=== PATIENT | female | born 1940 | race Caucasian/White ===

== ENCOUNTER 2019-06-27 21:17 | Inpatient (IN) | payer MEDICARE, OTHER ==
--- NOTE | 2019-06-28 00:20 | ED ---
Dizziness - HPI Summary HPI Summary: Pt is an 79 y/o F presenting to the ED with a chief complaint of anemia. Dr. Arevalo told her that she is anemic and recommended coming in today. She gets blood transfusions, and her last one was about 10 days ago. She reports weakness and fatigue. She denies CP, SOB, dizziness, lightheadedness, fever, cough, N/V/D, or dysuria. - History Of Current Complaint Chief Complaint: EDGeneral Stated Complaint: LOW BP, DEHYDRATED PER Time Seen by Provider: 06/27/19 23:52 Hx Obtained From: Patient Onset/Duration: Still Present, Gradually Timing: Days Severity Initially: Moderate Severity Currently: Severe Character: Lightheaded, Weak Aggravating Factor(s): Nothing Alleviating Factor(s): Nothing Associated Signs And Symptoms: Negative: Nausea, Vomiting, Diarrhea, Chest Pain , SOB, Fever, Chills - Allergies/Home Medications Allergies/Adverse Reactions: Allergies Allergy/AdvReac Type Severity Reaction Status Date / Time Sulfa (Sulfonamide Allergy Anxiety Verified 06/27/19 21:22 Antibiotics) enviromental Allergy Runny Nose Uncoded 06/27/19 21:22 milk Allergy Shortness Uncoded 06/27/19 21:22 of Breath PMH/Surg Hx/FS Hx/Imm Hx Previously Healthy: Yes Endocrine/Hematology History: Reports: Hx Diabetes - CONTROLLED W/MEDS Cardiovascular History: Reports: Hx Hypertension Denies: Hx Congestive Heart Failure Respiratory History: Reports: Hx Asthma, Hx Chronic Bronchitis History: Denies: Hx Renal Disease Sensory History: Reports: Hx Contacts or Glasses Opthamlomology History: Reports: Hx Contacts or Glasses - Cancer History Hx Chemotherapy: No Hx Radiation Therapy: No - Surgical History Surgery Procedure, Year, and Place: hysterectomy,tosilectomy Infectious Disease History: No Infectious Disease History: Denies: Traveled Outside the [place] in Last 30 Days - Family History Known Family History: Negative: Diabetes - Social History Alcohol Use: None Hx Substance Use: No Substance Use Type: Reports: None Hx Tobacco Use: No Smoking Status (MU): Never Smoked Tobacco Review of Systems - ROS Summary Review of Systems Summary: Home Medications Medication Instructions Recorded Confirmed Type Atenolol TAB* [Tenormin TAB* 25 MG] 25 mg PO DAILY 11/22/14 02/13/19 History Levothyroxine TAB* [Synthroid 25 75 mcg PO DAILY 11/22/14 02/13/19 History MCG TAB*] Ascorbic Acid TAB* [Vitamin C 500 mg PO DAILY 12/14/18 02/13/19 History TAB*] Calcium Carbonate [Calcium] 500 mg PO DAILY 12/14/18 02/13/19 History Clopidogrel TAB* [Plavix TAB*] 75 mg PO DAILY 12/14/18 02/13/19 History Fluticasone-Salmeterol 250-50* 1 puff INH BID 12/14/18 01/22/19 History [Advair Diskus 250-50*] Vitamin B Complex CAP* [B Complex 1 cap PO DAILY 12/14/18 02/13/19 History CAP*] Darbepoetin Jesse in Polysorbat 200 mcg IJ WEEKLY 02/13/19 02/13/19 History [Aranesp Albumin Free] Glucosamine HCl/Chondroitin Peguero 02/13/19 History Jakifi 10 mg PO DAILY 02/13/19 History Positive: Fatigue. Negative: Fever, Chills Negative: Chest Pain Negative: Shortness Of Breath, Cough Negative: Vomiting, Diarrhea, Nausea Negative: dysuria Neurological: Negative - dizziness, lightheadedness Positive: Weakness All Other Systems Reviewed And Are Negative: Yes Physical Exam - Summary Physical Exam Summary: General: Pale, elderly female. No acute distress. HEENT: Normocephalic, Atraumatic. Eyes: Conjuctiva normal, PERRL. Oropharynx: Clear, mucous membranes moist, (-) exudates. Neck: Soft, FROM, (-) lymphadenopathy, (-) thyromegaly, (-) JVD. Cardiovascular: Normal sinus rhythm, (-) murmur. Lungs: Clear to auscultation bilaterally (-) wheezes, (-) rales, (-) rhonchi. Abdomen: Soft, non-tender, non-distended, (-) organomegaly, normal bowel sounds. Back: (-) CVA tenderness Extremities: No edema. Skin: Warm, dry, (-) rash. Neuro: Alert and oriented x3, no focal deficits. Psychiatric: Mood normal, affect normal. Triage Information Reviewed: Yes Vital Signs On Initial Exam: Initial Vitals Temp Pulse Resp BP Pulse Ox 97.8 F 78 16 111/57 96 06/27/19 21:19 06/27/19 21:19 06/27/19 21:19 06/27/19 21:19 06/27/19 21:19 Vital Signs Reviewed: Yes Procedures - Sedation Patient Received Moderate/Deep Sedation with Procedure: No Diagnostics - Vital Signs Vital Signs Temp Pulse Resp BP Pulse Ox 06/27/19 23:27 97.9 F 06/27/19 23:26 67 96 06/27/19 23:25 109/49 06/27/19 21:19 97.8 F 78 16 111/57 96 - Laboratory Result Diagrams: 06/28/19 00:00 06/28/19 00:00 Lab Statement: Any lab studies that have been ordered have been reviewed, and results considered in the medical decision making process. - Radiology CXR Radiology Interpretation Completed By: ED Physician Summary of Radiographic Findings: No acute process. Pending official radiology report. - EKG 2357 Cardiac Rate: NL - 65 EKG Rhythm: Sinus Rhythm ST Segment: Normal Ectopy: None Summary of EKG Findings: EKG at 2357 reveals normal sinus rhythm with rate of 65 BPM, no acute changes, no ischemic changes. This EKG was reviewed and interpreted by Dr. Carlton. Dizzy Course/Dx - Course Course Of Treatment: 79 y/o F presenting to ED for anemia characterized by fatigue and weakness. She normally gets blood transfusions, most recent one about 10 days ago, before that it was about 2-3wks ago. She denies CP, SOB, dizziness, lightheadedness, fever, cough, N/V/D, or dysuria. EKG at 2357 reveals normal sinus rhythm with rate of 65 BPM, no acute changes, no ischemic changes. This EKG was reviewed and interpreted by Dr. Carlton. Bone marrow biopsy shows prominent gastric epharases, chronic splenic vein thrombosis, splenomegaly, 2 pancreatic cysts, and myelodysplasia. Hgb 6.8. 2 units blood will be transfused. Pt will be signed out to Dr. Gayle pending completion of transfusion. - Diagnoses Provider Diagnoses: Anemia Discharge ED - Sign-Out/Discharge Documenting (check all that apply): Sign-Out Patient Signing out patient TO: Lincoln Gayle - Discharge Plan Referrals: Lloyd Booth MD [Primary Care Provider] - - Attestation Statements Document Initiated by Scribe: Yes Documenting Scribe: Shikha Aldana Provider For Whom Jeff is Documenting (Include Credential): Taryn Carlton MD. Scribe Attestation: IShikha, scribed for Taryn Carlton MD. on 06/28/19 at 0641. Scribe Documentation Reviewed: Yes Provider Attestation: The documentation as recorded by the scribe, Shikha Aldana accurately reflects the service I personally performed and the decisions made by me, Taryn Carlton MD. Status of Scribe Document: Viewed
[2019-06-28 00:29] LABS: Hematocrit 20 % (35-47); Hemoglobin 6.8 g/dL (12.0-16.0); INR 1.48 (0.82-1.09); Mean Corpuscular HGB Conc 35 g/dL (31-36); Mean Corpuscular Hemoglobin 31 pg (27-31); Mean Corpuscular Volume 88 fL (80-97); Red Blood Count 2.23 10^6 /uL (3.70-4.87); Red Cell Distribution Width 19 % (10-15); White Blood Count 6.2 10^3/uL (3.5-10.8)
[2019-06-28 00:38] LABS: Albumin 3.7 g/dL (3.2-5.2); Albumin/Globulin Ratio 1.9 (1-3); BUN/Creatinine Ratio 18.7 (8-20); Calcium 8.2 mg/dL (8.6-10.3); EGFR African American 35.9 (>60); EGFR Non-African American 29.6 (>60); Potassium 4.6 mmol/L (3.5-5.0); Total Bilirubin 1.9 mg/dL (0.2-1.0); Total Protein 5.7 g/dL (6.4-8.9)
[2019-06-28 00:39] LABS: Troponin I 0.02 ng/mL (<0.03)
[2019-06-28 01:05] LABS: TSH (Thyroid Stimulating Horm) 0.29 mcIU/mL (0.34-5.60)
[2019-06-28 01:33] LABS: ABS Basophils 0.1 10^3/ul (0-0.2); ABS Lymphocytes 0.8 10^3/ul (1.0-4.8); ABS Monocytes 0.4 10^3/ul (0-0.8); ABS Neutrophils 4.9 10^3/ul (1.5-7.7); ABS Nucleated RBC 0.1 10^3/ul; Eosinophil % 0.1 %; Lymphocyte % 12.6 %; Mean Platelet Volume 8.1 fL (7.4-10.4); Nucleated Red Blood Cells % 2.2; Platelet Count 24 10^3/uL (150-450)
--- NOTE | 2019-06-28 07:07 | ED ---
Progress - Progress Note Progress Note: This patient is an 79 y/o F who presents to [facility] with chief complaint of anemia. This patient is a sign-out from Dr. Taryn Carlton to Dr. Lincoln Gayle at 0700 on 06/28/19 at shift change pending transfusion completion. Re-Evaluation - Re-Evaluation First Eval Re-Evaluation Time: 08:51 Change: Improved Comment: After transfusion, patient reports feeling much better. She does not feel as tired and weak. Patient states her "spleen is eating up the blood cells, " but her doctors do not know what is going on. Patient is not completely pale, she has symptomatically improved, and her heart rate and blood pressure are normal. I will page her java project manager/oncologist. Course/Dx - Course Course Of Treatment: This patient is an 79 y/o F who presents to [facility] with chief complaint of anemia and fatigue. This patient is a sign-out from Dr. Taryn Carlton to Dr. Lincoln Gayle at 0700 on 06/28/19 at shift change pending transfusion completion. After patient finished transfusion, I evaluated the patient and noted that while she was feeling better, she was not completely perfused. I discussed patient case with Dr. Arevalo, oncologist, who will come see the patient in the ED. At 1215, discussed patient case wt Dr. Arevalo, oncologist , who accepted the patient for admission to [facility]. Patient will be admitted to [facility] with dx of anemia. Patient understands and agrees with this plan. - Diagnoses Provider Diagnoses: Anemia - Provider Notifications Discussed Care Of Patient With: Ozzie Arevalo Time Discussed With Above Provider: 09:21 Instructed by Provider To: MD Will See In ED - Discussed patient case with Dr. Arevalo, oncologist, who will come see the patient in the ED. At 1215, discussed patient case wt Dr. Arevalo, oncologist, who accepted the patient for admission to [facility]. Discharge ED - Sign-Out/Discharge Documenting (check all that apply): Patient Departure - Admit, Receiving Sign- Out Receiving patient FROM: Taryn Carlton - Discharge Plan Condition: Stable Disposition: HOME - Billing Disposition and Condition Condition: STABLE Disposition: Home - Attestation Statements Document Initiated by Scribe: Yes Documenting Scribe: Jesus Becker Provider For Whom Scribe is Documenting (Include Credential): Lincoln Gayle MD Scribe Attestation: I, Jesus Becker, scribed for Lincoln Gayle MD on 06/28/19 at 1854. Scribe Documentation Reviewed: Yes Provider Attestation: The documentation as recorded by the scribe, Jesus Becker accurately reflects the service I personally performed and the decisions made by me, Lincoln Gayle MD Status of Scribe Document: Viewed Procedures - Sedation Patient Received Moderate/Deep Sedation with Procedure: No
[2019-06-28 07:36] LABS: Urine Appearance Clear; Urine Bilirubin Negative (Negative); Urine Blood Negative (Negative); Urine Color Yellow; Urine Glucose Negative (Negative); Urine Ketones Negative (Negative); Urine Nitrite Negative (Negative); Urine Protein Negative (Negative); Urine Specific Gravity 1.015 (1.010-1.030); Urine Urobilinogen Negative (Negative)
[2019-06-28 07:45] LABS: Urine Bacteria Absent (Absent); Urine Red Blood Cell Absent (Absent); Urine Squamous Epithelial Cell Present (Absent); Urine White Blood Cell 3+(>20/hpf) (Absent)
[2019-06-28] MEDS ORDERED: oxyCODONE/Acetamin 5/325 MG* TAB PO PRN (11:52)
[2019-06-28] MEDS ORDERED: Acetaminophen TAB* 325 MG PO PRN (11:52)
[2019-06-28] MEDS ORDERED: Ondansetron INJ* 2 MG/ML VIAL IV PRN (11:52)
[2019-06-28 12:20] LABS: Hematocrit 26 % (35-47); Hemoglobin 9.2 g/dL (12.0-16.0); Mean Corpuscular HGB Conc 35 g/dL (31-36); Mean Corpuscular Hemoglobin 30 pg (27-31); Mean Corpuscular Volume 86 fL (80-97); Red Blood Count 3.03 10^6 /uL (3.70-4.87); White Blood Count 5.2 10^3/uL (3.5-10.8)
[2019-06-28 12:41] LABS: Mean Platelet Volume 8.3 fL (7.4-10.4); Platelet Count 19 10^3/uL (150-450); Red Cell Distribution Width 17 % (10-15)
[2019-06-28 12:46] LABS: ABS Lymphocytes 0.7 10^3/ul (1.0-4.8); ABS Monocytes 0.2 10^3/ul (0-0.8); ABS Neutrophils 4.3 10^3/ul (1.5-7.7); ABS Nucleated RBC 0.2 10^3/ul; Lymphocyte % 13.3 %
[2019-06-28 12:51] LABS: Microcytosis 2+; Polychromasia 1+
--- NOTE | 2019-06-28 13:09 | HP ---
HISTORY AND PHYSICAL: DATE OF ADMISSION: 06/28/19 IDENTIFICATION: An 79-year-old female with mixed myeloproliferative/ myelodysplastic disease, cirrhosis, splenomegaly. CHIEF COMPLAINT: Weakness. HISTORY OF PRESENT ILLNESS: An 79-year-old female well known to our service. She is followed since 2014 with persistent anemia. 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 She was treated with hydroxyurea starting January 2017. She developed persistent and progressive anemia in September 2018 and hydroxyurea was stopped. Anemia persisted despite stopping the medication. Initial study showed low iron, treated with IV iron without success. 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 CT scan showed marked splenomegaly. Bone marrow biopsy in December 2018 showed 5% cellularity, no increased blasts, reticulocytes are negative, PNH screen was negative. She had an FNA of her spleen and it showed extramedullary hematopoiesis, no evidence of malignancy. She was ultimately restarted on Jakafi 5 mg p.o. b.i.d., which helped with the splenomegaly, but did not improve her blood counts. She has had trial of Aranesp 500 mg q.2 weeks without effect and has been subsequently managed with packed red blood cells. She has had progressive anemia despite transfusions. She was transfused on 05/16/19 two units, then did well with hemoglobin around 7 to 8 until 06/19/19. On 06/19/19, she had a hemoglobin of 7.1 and given 2 units and recheck on 06/21/19 was 8.8. Given her need for additional transfusions, we tried holding the Jakafi. She re-presented today with hemoglobin back down to 6.8. She feels increasingly weak, could not stand up, could not move without her son's support. She is not eating well and she feels dehydrated. Her platelets were down to 24,000 today. She presented to the emergency room, given 1 unit of packed red blood cells, and felt a little bit better, but still very weak. Additional blood work includes creatinine 1.66; up from baseline of 1.1 and sodium down to 133 from baseline of 139, normal calcium, slightly elevated bilirubin of 1.9. She has a TSH that is low at 0.29 and her INR is 1.48, slightly above her baseline. PAST MEDICAL HISTORY: 1. Myelodysplasia/myeloproliferative disease as noted above. 2. Asthma. 3. Hypertension. 4. Hypothyroidism. 5. Peripheral vascular disease. 6. Cirrhosis with splenomegaly. PAST SURGICAL HISTORY: Fem-pop bypass in December 2014. MEDICATIONS AT HOME: 1. Advair Diskus as well as albuterol p.r.n. 2. B12 at 500 mcg p.o. daily. 3. Calcium 1200 mg a day. 4. Plavix 75 mcg a day. 5. Glucosamine chondroitin. 6. Jakafi has been on hold, was 5 mg p.o. b.i.d. 7. Magnesium. 8. Omeprazole 40 mg p.o. daily. 9. Prednisone 40 mg a day. 10. Synthroid 75 mcg a day. 11. Valsartan 40 mg a day. 12. Vitamin C. ALLERGIES: SULFA. FAMILY HISTORY: No significant history of malignancy. SOCIAL HISTORY: No alcohol. She has good family support. Does not smoke. REVIEW OF SYSTEMS: Fatigued and weak. General: No fevers, chills, or night sweats. HEENT: Negative. Eyes: Negative. Endocrine: Hypothyroid, on Synthroid. Hematologic: She has some bruising. No recent nosebleeds or bleeding from the gums. Respiratory: Short of breath with exertion. Cardiovascular: No chest pain or palpitations. Short of breath when she is active. GI: Poor appetite. : Negative. Musculoskeletal: Weak, only transfusions help. Skin: Bruising. Neurologic: Negative. Psychiatric: Not depressed. PHYSICAL EXAMINATION VITAL SIGNS: BP 129/60, heart rate 66, respirations 24. HEENT: No lesions. No cervical or supraclavicular lymphadenopathy. Conjunctivae pale. Oral mucosa is dry. LUNGS: Decreased breath sounds, but clear bilaterally, no wheezing at this time. HEART: Regular rhythm. S1, S2. No murmurs, rubs, or gallops. ABDOMEN: Mildly distended. Palpable spleen. Good bowel sounds. Nontender. EXTREMITIES: +1 edema. Good pulses. NEUROLOGIC: Alert and oriented x3, conversational. DIAGNOSTIC STUDIES/LAB DATA: Labs: As noted above. ASSESSMENT AND PLAN: An 79-year-old female with mixed myeloproliferative/ myelodysplastic disease who has been treated with transfusion support. Increasing difficulty with transfusions and deteriorating quality of life. Her pancytopenia is from poor marrow function, but the transfusions are compromised by splenic pooling. I do not think she is actively bleeding. We discussed that there are very few options for her. If she cannot be transfused effectively, we cannot keep her alive. I am worried about that her quality of life will continue to deteriorate. We discussed hospice; her prognosis would be about 2 months without support. She feels she is not ready to yet. There are no options for aggressive therapy; surgery to remove the spleen would not be dias. The only treatment option I see is increasing the Jakafi to try and further decrease the spleen size and then improve her susceptibility to transfusions. There will be a risk of further thrombocytopenias with this approach. Plan: 1. We will admit. Recheck CBC and transfuse again till we get to hemoglobin over 8.0. 2. Acute renal failure. Gentle hydration, normal saline at 75 cc an hour and encourage p.o. 3. Recheck noncontrast CT scan of abdomen and pelvis to see if she has had further enlargement of the spleen. 4. She will bring in her own Jakafi and we increase to 10 mg p.o. b.i.d. 5. DNR/DNI. 6. Palliative care consult. 7. Continue her other medications. We will continue prednisone 40 mg a day to prevent steroid withdrawal. [id number]/[facility] #: [id number] [facility]ENTERMicaela
[2019-06-28] MEDS: Mometasone/Formoter 200/5 MDI INH SCH (20:22)
--- NOTE | 2019-06-28 21:35 | CONSULT ---
Palliative / Hospice Consult Ordering Provider: Ozzie Arevalo - PCPHaseeb Referal Reason: goals of care/senna/oxycodone - Subjective Code Status: DNR Advance Directives Location: In Chart [facility]OL[facility] Part A Completed: Yes - completed with family and on chart [facility] Part E Completed:: Yes - completed with family and on chart - History or Present Illness History or Present Illness: 79yo female with mixed myeloproliferative /myleodysplasic disease presents with weakness. 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 PSHx non smoker, no etoh, no drugs, remarried to Arnoldo Childsfe [phone]. Studies CXR neg, EKG-NSR, H/H 9.2/26, WBC 5.2, plt 19, BUN/ Cr 31/1.66, egfr 29.6, alb 3.7 and INR 1.487. Admitted with pancytopenia, anemia and acute renal failure. All history is from pt, family and medical record. Lab Values: Abnormal Lab Results 06/28/19 06/28/19 06/28/19 00:00 00:00 00:00 WBC 6.2 RBC 2.23 L Hgb 6.8 L Hct 20 L MCV 88 MCH 31 MCHC 35 RDW 19 H Plt Count 24 L MPV 8.1 Neut % (Auto) 78.9 Lymph % (Auto) 12.6 Brantley % (Auto) 7.1 Eos % (Auto) 0.1 Baso % (Auto) 1.3 Absolute Neuts (auto) 4.9 Absolute Lymphs (auto) 0.8 L Absolute Monos (auto) 0.4 Absolute Eos (auto) 0.0 Absolute Basos (auto) 0.1 Absolute Nucleated RBC 0.1 Immature Gran % Neutrophils % Band Neutrophils % Lymphocytes % Reactive Lymphs % Monocytes % Eosinophils % Myelocytes % Nucleated RBC % 2.2 Nucleated RBCs/100 WBC Normal RBC Morphology Polychromasia Microcytosis INR (Anticoag Therapy) Sodium 133 L Potassium 4.6 Chloride 100 L Carbon Dioxide 27 Anion Gap 6 BUN 31 H Creatinine 1.66 H Est GFR ( Amer) 35.9 Est GFR (Non-Af Amer) 29.6 BUN/Creatinine Ratio 18.7 Glucose 104 H Lactic Acid 0.5 Calcium 8.2 L Magnesium 2.0 Total Bilirubin 1.90 H AST 14 ALT 13 Alkaline Phosphatase 50 Troponin I 0.02 B-Natriuretic Peptide Total Protein 5.7 L Albumin 3.7 Globulin 2.0 Albumin/Globulin Ratio 1.9 TSH 0.29 L Urine Color Urine Appearance Urine pH Ur Specific Sciota Urine Protein Urine Ketones Urine Blood Urine Nitrate Urine Bilirubin Urine Urobilinogen Ur Leukocyte Esterase Urine WBC (Auto) Urine RBC (Auto) Ur Squamous Epith Cells Urine Bacteria Hyaline Casts Urine Glucose Blood Type Antibody Screen Crossmatch 06/28/19 06/28/19 06/28/19 00:00 00:00 00:00 WBC RBC Hgb Hct MCV MCH MCHC RDW Plt Count MPV Neut % (Auto) Lymph % (Auto) Brantley % (Auto) Eos % (Auto) Baso % (Auto) Absolute Neuts (auto) Absolute Lymphs (auto) Absolute Monos (auto) Absolute Eos (auto) Absolute Basos (auto) Absolute Nucleated RBC Immature Gran % Neutrophils % Band Neutrophils % Lymphocytes % Reactive Lymphs % Monocytes % Eosinophils % Myelocytes % Nucleated RBC % Nucleated RBCs/100 WBC Normal RBC Morphology Polychromasia Microcytosis INR (Anticoag Therapy) 1.48 H Sodium Potassium Chloride Carbon Dioxide Anion Gap BUN Creatinine Est GFR ( Amer) Est GFR (Non-Af Amer) BUN/Creatinine Ratio Glucose Lactic Acid Calcium Magnesium Total Bilirubin AST ALT Alkaline Phosphatase Troponin I B-Natriuretic Peptide 118 H Total Protein Albumin Globulin Albumin/Globulin Ratio TSH Urine Color Urine Appearance Urine pH Ur Specific Sc[place] Urine Protein Urine Ketones Urine Blood Urine Nitrate Urine Bilirubin Urine Urobilinogen Ur Leukocyte Esterase Urine WBC (Auto) Urine RBC (Auto) Ur Squamous Epith Cells Urine Bacteria Hyaline Casts Urine Glucose Blood Type O Positive Antibody Screen Negative Crossmatch See Detail 06/28/19 06/28/19 07:20 12:03 WBC 5.2 RBC 3.03 L Hgb 9.2 L Hct 26 L MCV 86 MCH 30 MCHC 35 RDW 17 H Plt Count 19 L D MPV 8.3 Neut % (Auto) 82.6 Lymph % (Auto) 13.3 Brantley % (Auto) 3.3 Eos % (Auto) 0.0 Baso % (Auto) 0.8 Absolute Neuts (auto) 4.3 Absolute Lymphs (auto) 0.7 L Absolute Monos (auto) 0.2 Absolute Eos (auto) 0.0 Absolute Basos (auto) 0.0 Absolute Nucleated RBC 0.2 Immature Gran % 9.0 Neutrophils % 81.0 Band Neutrophils % 7.0 Lymphocytes % 5.0 Reactive Lymphs % 3.0 Monocytes % 1.0 Eosinophils % 1.0 Myelocytes % 2.0 H Nucleated RBC % 3.0 Nucleated RBCs/100 WBC 10.0 H Normal RBC Morphology Not Reportable Polychromasia 1+ Microcytosis 2+ INR (Anticoag Therapy) Sodium Potassium Chloride Carbon Dioxide Anion Gap BUN Creatinine Est GFR ( Amer) Est GFR (Non-Af Amer) BUN/Creatinine Ratio Glucose Lactic Acid Calcium Magnesium Total Bilirubin AST ALT Alkaline Phosphatase Troponin I B-Natriuretic Peptide Total Protein Albumin Globulin Albumin/Globulin Ratio TSH Urine Color Yellow Urine Appearance Clear Urine pH 6.0 Ur Specific Sciota 1.015 Urine Protein Negative Urine Ketones Negative Urine Blood Negative Urine Nitrate Negative Urine Bilirubin Negative Urine Urobilinogen Negative Ur Leukocyte Esterase 1+ A Urine WBC (Auto) 3+(>20/hpf) A Urine RBC (Auto) Absent Ur Squamous Epith Cells Present A Urine Bacteria Absent Hyaline Casts Present A Urine Glucose Negative Blood Type Antibody Screen Crossmatch Laboratory Last Values WBC 5.2 10^3/uL (3.5-10.8) 06/28/19 12:03 RBC 3.03 10^6 /uL (3.70-4.87) L 06/28/19 12:03 Hgb 9.2 g/dL (12.0-16.0) L 06/28/19 12:03 Hct 26 % (35-47) L 06/28/19 12:03 MCV 86 fL (80-97) 06/28/19 12:03 MCH 30 pg (27-31) 06/28/19 12:03 MCHC 35 g/dL (31-36) 06/28/19 12:03 RDW 17 % (10-15) H 06/28/19 12:03 Plt Count 19 10^3/uL (150-450) L D 06/28/19 12:03 MPV 8.3 fL (7.4-10.4) 06/28/19 12:03 Neut % (Auto) 82.6 % 06/28/19 12:03 Lymph % (Auto) 13.3 % 06/28/19 12:03 Brantley % (Auto) 3.3 % 06/28/19 12:03 Eos % (Auto) 0.0 % 06/28/19 12:03 Baso % (Auto) 0.8 % 06/28/19 12:03 Absolute Neuts (auto) 4.3 10^3/ul (1.5-7.7) 06/28/19 12:03 Absolute Lymphs (auto) 0.7 10^3/ul (1.0-4.8) L 06/28/19 12:03 Absolute Monos (auto) 0.2 10^3/ul (0-0.8) 06/28/19 12:03 Absolute Eos (auto) 0.0 10^3/ul (0-0.6) 06/28/19 12:03 Absolute Basos (auto) 0.0 10^3/ul (0-0.2) 06/28/19 12:03 Absolute Nucleated RBC 0.2 10^3/ul 06/28/19 12:03 Immature Gran % 9.0 % (0-9) 06/28/19 12:03 Neutrophils % 81.0 % 06/28/19 12:03 Band Neutrophils % 7.0 % (0-8) 06/28/19 12:03 Lymphocytes % 5.0 % 06/28/19 12:03 Reactive Lymphs % 3.0 % (0-6) 06/28/19 12:03 Monocytes % 1.0 % 06/28/19 12:03 Eosinophils % 1.0 % 06/28/19 12:03 Myelocytes % 2.0 % (0-1) H 06/28/19 12:03 Nucleated RBC % 3.0 06/28/19 12:03 Nucleated RBCs/100 WBC 10.0 (0-0) H 06/28/19 12:03 Normal RBC Morphology Not Reportable 06/28/19 12:03 Polychromasia 1+ 06/28/19 12:03 Microcytosis 2+ 06/28/19 12:03 INR (Anticoag Therapy) 1.48 (0.82-1.09) H 06/28/19 00:00 Sodium 133 mmol/L (135-145) L 06/28/19 00:00 Potassium 4.6 mmol/L (3.5-5.0) 06/28/19 00:00 Chloride 100 mmol/L (101-111) L 06/28/19 00:00 Carbon Dioxide 27 mmol/L (22-32) 06/28/19 00:00 Anion Gap 6 mmol/L (2-11) 06/28/19 00:00 BUN 31 mg/dL (6-24) H 06/28/19 00:00 Creatinine 1.66 mg/dL (0.51-0.95) H 06/28/19 00:00 Est GFR ( Amer) 35.9 (>60) 06/28/19 00:00 Est GFR (Non-Af Amer) 29.6 (>60) 06/28/19 00:00 BUN/Creatinine Ratio 18.7 (8-20) 06/28/19 00:00 Glucose 104 mg/dL (70-100) H 06/28/19 00:00 Lactic Acid 0.5 mmol/L (0.5-2.0) 06/28/19 00:00 Calcium 8.2 mg/dL (8.6-10.3) L 06/28/19 00:00 Magnesium 2.0 mg/dL (1.9-2.7) 06/28/19 00:00 Total Bilirubin 1.90 mg/dL (0.2-1.0) H 06/28/19 00:00 AST 14 U/L (13-39) 06/28/19 00:00 ALT 13 U/L (7-52) 06/28/19 00:00 Alkaline Phosphatase 50 U/L (34-104) 06/28/19 00:00 Troponin I 0.02 ng/mL (<0.03) 06/28/19 00:00 B-Natriuretic Peptide 118 pg/mL (<=100) H 06/28/19 00:00 Total Protein 5.7 g/dL (6.4-8.9) L 06/28/19 00:00 Albumin 3.7 g/dL (3.2-5.2) 06/28/19 00:00 Globulin 2.0 g/dL (2-4) 06/28/19 00:00 Albumin/Globulin Ratio 1.9 (1-3) 06/28/19 00:00 TSH 0.29 mcIU/mL (0.34-5.60) L 06/28/19 00:00 Urine Color Yellow 06/28/19 07:20 Urine Appearance Clear 06/28/19 07:20 Urine pH 6.0 (5-9) 06/28/19 07:20 Ur Specific Sciota 1.015 (1.010-1.030) 06/28/19 07:20 Urine Protein Negative (Negative) 06/28/19 07:20 Urine Ketones Negative (Negative) 06/28/19 07:20 Urine Blood Negative (Negative) 06/28/19 07:20 Urine Nitrate Negative (Negative) 06/28/19 07:20 Urine Bilirubin Negative (Negative) 06/28/19 07:20 Urine Urobilinogen Negative (Negative) 06/28/19 07:20 Ur Leukocyte Esterase 1+ (Negative) A 06/28/19 07:20 Urine WBC (Auto) 3+(>20/hpf) (Absent) A 06/28/19 07:20 Urine RBC (Auto) Absent (Absent) 06/28/19 07:20 Ur Squamous Epith Cells Present (Absent) A 06/28/19 07:20 Urine Bacteria Absent (Absent) 06/28/19 07:20 Hyaline Casts Present (Absent) A 06/28/19 07:20 Urine Glucose Negative (Negative) 06/28/19 07:20 Blood Type O Positive 06/28/19 00:00 Antibody Screen Negative 06/28/19 00:00 Crossmatch See Detail 06/28/19 00:00 - Objective Active Medications: Acetaminophen (Tylenol Tab*) 650 mg PO Q4H PRN PRN Reason: PAIN - MILD Ascorbic Acid (Vitamin C Tab*) 500 mg PO DAILY [facility] Atenolol (Tenormin Tab*) 25 mg PO DAILY [facility] Calcium Carbonate (Tums*) 500 mg PO DAILY [facility] Sodium Chloride (Ns 0.9% 1000 Ml) 1,000 mls @ 100 mls/hr IV PER RATE [facility] Levothyroxine Sodium (Synthroid Tab*) 50 mcg PO DAILY@0600 [facility] Mometasone Furoate/Formoterol Fumar (Dulera 200/5 Mdi*) 2 puff INH BID [facility] Last Admin: 06/28/19 20:22 Dose: 2 puff Ondansetron HCl (Zofran Inj*) 4 mg IV Q4H PRN PRN Reason: NAUSEA/VOMITING Oxycodone/Acetaminophen (Percocet 5/325 Tab*) 1 tab PO Q4H PRN PRN Reason: PAIN - MODERATE Prednisone (Deltasone Tab*) 40 mg PO DAILY [facility] Senna (Senokot 8.6 Mg Tab*) 1 tab PO BID [facility] Zolpidem Tartrate (Ambien Tab*) 10 mg PO BEDTIME [facility] Vital Signs: Vital Signs: Temp Pulse Resp BP Pulse Ox 99.6 F 80 16 138/59 94 06/28/19 15:52 06/28/19 20:29 06/28/19 15:52 06/28/19 15:52 06/28/19 20:29 Patient Weight: Weight 67.132 kg Intake and Output: Intake & Output 06/26/19 06/27/19 06/28/19 06/29/19 06:59 06:59 06:59 06:59 Weight 65.771 kg 67.132 kg ADLs: Meal Record Start: 06/28/19 14: 23 Freq: DAILY@0900,1400,1800 Status: Active Protocol: Created 06/28/19 14:23 System (Rec: 06/28/19 14:23 System [id number]) Intake and Output Start: 06/27/19 21: 22 Freq: Status: Active Protocol: Created 06/27/19 21:22 System (Rec: 06/27/19 21:22 System [id number]) Intake and Output Start: 06/28/19 14: 23 Freq: DAILY@0600,1400,2200 Status: Active Protocol: Created 06/28/19 14:23 System (Rec: 06/28/19 14:23 System [id number]) Head: Normal Eyes: No Scleral Icterus Ears/Nose/Mouth/Throat: NL Teeth, Lips, Gums Neck: NL Appearance and Movements; NL JVP Cardiovascular: NL Sounds; No Murmurs; No JVD Respiratory: Symmetrical Chest Expansion and Respiratory Effort Abdominal: NL Sounds; No Tenderness; No Distention Neurological: Alert and Oriented x 3 - Assessment Assessment: 79yo female with myeloproliferative/myelodysplastic disease presents with weakness - Plan Consult Plan (MU): Hospice Plan: Long discussion with pt and her son, pt's left because he was a little frustrated and it was difficult to hear. Pt aware that she has a poor prognosis if her anemia doesn't improve. Although she would like to stay at home she is not sure if it is possible. She was not excited about long-term but was interested in the Residence. Information/brochure about hospice was given. Family was a little shocked about how poorly pt was doing but pt was not shocked. Her lost his first 4-5yrs ago due to cancer and now his present is dying. Support given to pt and . Discussed MOLST form pt doesn't want CPR or intubation or feeding tube, for now she wants limited intervention and IV fluids. Pt would be eligible for hospice with a diagnosis of severe anemia not responding to treatment and failure to thrive. KPS 50%, PPS 50%. - Time On Unit Date of Evaluation: 06/28/19 Hospice Consult Time in: 16:30 Hospice Consult Time Out: 18:00 Hospice Consult Time Total: 90 > 50% of Time Spend In Counseling or Coordinating Care: Yes
[2019-06-28] MEDS: Zolpidem TAB* 10 MG PO SCH (23:33)
[2019-06-28] MEDS: Senna TAB 8.6 mg* TAB PO SCH (23:33)
[2019-06-29] MEDS: NS 0.9% 1000 ML** 1,000 ML IV SCH ×2 (03:32→21:08)
[2019-06-29] MEDS: Levothyroxine TAB* 50 MCG TAB PO SCH (06:10)
[2019-06-29 06:51] LABS: Hematocrit 20 % (35-47); Mean Corpuscular HGB Conc 36 g/dL (31-36); Mean Corpuscular Hemoglobin 31 pg (27-31); Mean Corpuscular Volume 86 fL (80-97); Mean Platelet Volume 8.5 fL (7.4-10.4); Platelet Count 12 10^3/uL (150-450); Red Blood Count 2.29 10^6 /uL (3.70-4.87); Red Cell Distribution Width 17 % (10-15)
[2019-06-29 07:07] LABS: Albumin 3.1 g/dL (3.2-5.2); Albumin/Globulin Ratio 1.9 (1-3); EGFR African American 50.7 (>60); EGFR Non-African American 41.9 (>60); Globulin 1.6 g/dL (2-4); Magnesium 1.8 mg/dL (1.9-2.7); Potassium 3.7 mmol/L (3.5-5.0); Total Bilirubin 1.3 mg/dL (0.2-1.0); Total Protein 4.7 g/dL (6.4-8.9)
[2019-06-29] MEDS: Mometasone/Formoter 200/5 MDI INH SCH ×2 (08:19→20:08)
[2019-06-29] MEDS ORDERED: Levothyroxine TAB* 25 MCG TAB PO SCH (09:00)
[2019-06-29 09:03] LABS: ABS Lymphocytes 0.4 10^3/ul (1.0-4.8); ABS Monocytes 0.1 10^3/ul (0-0.8); ABS Neutrophils 2.5 10^3/ul (1.5-7.7); ABS Nucleated RBC 0.1 10^3/ul; Eosinophil % 0.1 %; Lymphocyte % 11.9 %; Nucleated Red Blood Cells % 2.2
[2019-06-29] MEDS: Calcium Carbonate CHEW TAB* 500 MG (TUMS) PO SCH (09:05)
[2019-06-29] MEDS: Ascorbic Acid TAB* 500 MG PO SCH (09:05)
[2019-06-29] MEDS: Senna TAB 8.6 mg* TAB PO SCH ×2 (09:05→21:11)
[2019-06-29] MEDS: Atenolol TAB* 25 MG PO SCH (09:05)
[2019-06-29] MEDS: JAKAFI 5 MG PO SCH ×2 (11:14→21:07)
[2019-06-29] MEDS: Zolpidem TAB* 10 MG PO SCH (21:07)
[2019-06-30] MEDS: Levothyroxine TAB* 50 MCG TAB PO SCH (05:46)
[2019-06-30 06:49] LABS: ABS Lymphocytes 0.4 10^3/ul (1.0-4.8); ABS Monocytes 0.2 10^3/ul (0-0.8); ABS Neutrophils 3.5 10^3/ul (1.5-7.7); Hematocrit 23 % (35-47); Hemoglobin 8.1 g/dL (12.0-16.0); Lymphocyte % 9.4 %; Mean Corpuscular HGB Conc 36 g/dL (31-36); Mean Corpuscular Hemoglobin 30 pg (27-31); Mean Corpuscular Volume 84 fL (80-97); Mean Platelet Volume 8.9 fL (7.4-10.4); Nucleated Red Blood Cells % 0.5; Platelet Count 15 10^3/uL (150-450); Red Cell Distribution Width 18 % (10-15); White Blood Count 4.1 10^3/uL (3.5-10.8)
[2019-06-30] MEDS: NS 0.9% 1000 ML** 1,000 ML IV SCH (06:56)
[2019-06-30] MEDS: Mometasone/Formoter 200/5 MDI INH SCH ×2 (08:19→19:54)
[2019-06-30] MEDS: Ascorbic Acid TAB* 500 MG PO SCH (08:45)
[2019-06-30] MEDS: Calcium Carbonate CHEW TAB* 500 MG (TUMS) PO SCH (08:45)
[2019-06-30] MEDS: Atenolol TAB* 25 MG PO SCH (08:45)
[2019-06-30] MEDS: Senna TAB 8.6 mg* TAB PO SCH ×2 (09:54→21:41)
[2019-06-30] MEDS: JAKAFI 5 MG PO SCH ×2 (11:11→21:41)
--- NOTE | 2019-06-30 11:56 | PN ---
Progress Note - Progress Note Date of Service: 06/30/19 SOAP: Subjective: []She feels a little better today. Tolerated transfusion. She is eating fine. Still very weak. Had good meeting with hospice. Has started Jakafi. No fevers. She is urinating. Acetaminophen (Tylenol Tab*) 650 mg PO Q4H PRN PRN Reason: PAIN - MILD Ascorbic Acid (Vitamin C Tab*) 500 mg PO DAILY [facility] Last Admin: 06/30/19 08:45 Dose: 500 mg Atenolol (Tenormin Tab*) 25 mg PO DAILY [facility] Last Admin: 06/30/19 08:45 Dose: 25 mg Calcium Carbonate (Tums*) 500 mg PO DAILY [facility] Last Admin: 06/30/19 08:45 Dose: 500 mg Sodium Chloride (Ns 0.9% 1000 Ml) 1,000 mls @ 100 mls/hr IV PER RATE [facility] Last Admin: 06/30/19 06:56 Dose: 100 mls/hr Levothyroxine Sodium (Synthroid Tab*) 50 mcg PO DAILY@0600 [facility] Last Admin: 06/30/19 05:46 Dose: 50 mcg Mometasone Furoate/Formoterol Fumar (Dulera 200/5 Mdi*) 2 puff INH BID [facility] Last Admin: 06/30/19 08:19 Dose: 2 puff Pto: Jakafi 5mg (Tablet) 2 dose PO BID [facility] Last Admin: 06/30/19 11:11 Dose: 2 dose Ondansetron HCl (Zofran Inj*) 4 mg IV Q4H PRN PRN Reason: NAUSEA/VOMITING Oxycodone/Acetaminophen (Percocet 5/325 Tab*) 1 tab PO Q4H PRN PRN Reason: PAIN - MODERATE Prednisone (Deltasone Tab*) 30 mg PO DAILY [facility] Senna (Senokot 8.6 Mg Tab*) 1 tab PO BID [facility] Last Admin: 06/30/19 09:54 Dose: Not Given Zolpidem Tartrate (Ambien Tab*) 10 mg PO BEDTIME [facility] Last Admin: 06/29/19 21:07 Dose: 10 mg Objective: [] Vital Signs Temp Pulse Resp BP Pulse Ox 97.5 F 60 17 132/48 99 06/30/19 10:40 06/30/19 10:40 06/30/19 10:40 06/30/19 10:40 06/30/19 10:40 HEENT: pale and ill appearing OM moist Crackles at base BL, no wheezing +BS +spleen, NT ND Ext +1 DINESH Neuro: AAOx3 MK diffuse weakness, strength 4/[address] w/ massive enlarged spleen, unchanged. Hgb 8.1 Cr 1.29 Assessment: []79 year old with MPD/MDS mixed picture. 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 Admission with FTT at home and we discussed hospice and trial of increased Jakafi and transfusion support. Following over weekend for symptomatic improvement. Plan: []1. Mild fluid overload. Hold IVF, no diuretics. 2. Anemia. Slightly improved, follow today. 3. Encouraged activity and oral intake. 4. Continue Jakafi 10 mg po bid. 5. On Tuesday decide about hospice or home on Jakafi.
[2019-06-30] MEDS: Zolpidem TAB* 10 MG PO SCH (21:41)
[2019-07-01] MEDS: Levothyroxine TAB* 50 MCG TAB PO SCH (06:04)
[2019-07-01 06:58] LABS: Albumin 3.2 g/dL (3.2-5.2); Albumin/Globulin Ratio 1.8 (1-3); BUN/Creatinine Ratio 21.9 (8-20); Calcium 8.5 mg/dL (8.6-10.3); EGFR African American 60.9 (>60); EGFR Non-African American 50.3 (>60); Globulin 1.8 g/dL (2-4); Magnesium 1.8 mg/dL (1.9-2.7); Potassium 4.1 mmol/L (3.5-5.0); Total Bilirubin 0.8 mg/dL (0.2-1.0)
[2019-07-01 07:00] LABS: Hematocrit 24 % (35-47); Hemoglobin 8.2 g/dL (12.0-16.0); Mean Corpuscular HGB Conc 35 g/dL (31-36); Mean Corpuscular Hemoglobin 30 pg (27-31); Mean Corpuscular Volume 85 fL (80-97); Mean Platelet Volume 9.2 fL (7.4-10.4); Platelet Count 20 10^3/uL (150-450); Red Blood Count 2.78 10^6 /uL (3.70-4.87); Red Cell Distribution Width 17 % (10-15); White Blood Count 4.3 10^3/uL (3.5-10.8)
[2019-07-01] MEDS ORDERED: Magnesium Sulfate 1 GM IV* 1 GM/100 ML BAG IV ONE (07:41)
[2019-07-01] MEDS: Mometasone/Formoter 200/5 MDI INH SCH ×2 (07:46→20:37)
[2019-07-01 07:55] LABS: Polychromasia 1+
[2019-07-01 07:58] LABS: Tear Drop Cells 1+
[2019-07-01 08:04] LABS: ABS Lymphocytes 0.6 10^3/ul (1.0-4.8); ABS Monocytes 0.1 10^3/ul (0-0.8); ABS Neutrophils 3.5 10^3/ul (1.5-7.7); Lymphocyte % 14.3 %; Nucleated Red Blood Cells % 0.6
[2019-07-01] MEDS: JAKAFI 5 MG PO SCH ×2 (09:15→20:48)
[2019-07-01] MEDS: Atenolol TAB* 25 MG PO SCH (09:16)
[2019-07-01] MEDS: Senna TAB 8.6 mg* TAB PO SCH ×2 (09:16→20:46)
[2019-07-01] MEDS: Ascorbic Acid TAB* 500 MG PO SCH (09:16)
[2019-07-01] MEDS: Calcium Carbonate CHEW TAB* 500 MG (TUMS) PO SCH (09:16)
--- NOTE | 2019-07-01 14:53 | PN ---
Subjective Date of Service: 07/01/19 Interval History: Patient is feeling relatively well today. Patient feels as if her energy level has increased. Patient denies F/C, N/V, abdominal pain, diarrhea, dizziness, CP , SOB. Patient states that her 26yo granddaughter in [place] was also diagnosed with Myelodysplasia and that she had a treatment regimen that was effective and patient would like to see if this is an option for her. Family History: Unchanged from Admission Social History: Unchanged from Admission Past Medical History: Unchanged from Admission Objective Active Medications: Acetaminophen (Tylenol Tab*) 650 mg PO Q4H PRN PRN Reason: PAIN - MILD Ascorbic Acid (Vitamin C Tab*) 500 mg PO DAILY [facility] Last Admin: 07/01/19 09:16 Dose: 500 mg Atenolol (Tenormin Tab*) 25 mg PO DAILY [facility] Last Admin: 07/01/19 09:16 Dose: 25 mg Calcium Carbonate (Tums*) 500 mg PO DAILY [facility] Last Admin: 07/01/19 09:16 Dose: 500 mg Levothyroxine Sodium (Synthroid Tab*) 50 mcg PO DAILY@0600 [facility] Last Admin: 07/01/19 06:04 Dose: 50 mcg Mometasone Furoate/Formoterol Fumar (Dulera 200/5 Mdi*) 2 puff INH BID [facility] Last Admin: 07/01/19 07:46 Dose: 2 puff Pto: Jakafi 5mg (Tablet) 2 dose PO BID [facility] Last Admin: 07/01/19 09:15 Dose: 2 dose Ondansetron HCl (Zofran Inj*) 4 mg IV Q4H PRN PRN Reason: NAUSEA/VOMITING Oxycodone/Acetaminophen (Percocet 5/325 Tab*) 1 tab PO Q4H PRN PRN Reason: PAIN - MODERATE Prednisone (Deltasone Tab*) 30 mg PO DAILY [facility] Last Admin: 07/01/19 09:16 Dose: 30 mg Senna (Senokot 8.6 Mg Tab*) 1 tab PO BID [facility] Last Admin: 07/01/19 09:16 Dose: 1 tab Zolpidem Tartrate (Ambien Tab*) 10 mg PO BEDTIME [facility] Last Admin: 06/30/19 21:41 Dose: 10 mg Vital Signs - 8 hr 07/01/19 07/01/19 07/01/19 08:03 08:15 11:26 Temperature 97.2 F 97.8 F Pulse Rate 52 60 63 Respiratory 20 22 Rate Blood Pressure 152/51 141/51 (mmHg) O2 Sat by Pulse 100 100 Oximetry Oxygen Devices in Use Now: None Appearance: Pale 79yo female who appears stated age in NAD. Eyes: No Scleral Icterus, PERRLA Ears/Nose/Mouth/Throat: NL Teeth, Lips, Gums, Clear Oropharnyx, Mucous Membranes Moist Neck: NL Appearance and Movements; NL JVP, Trachea Midline Respiratory: Symmetrical Chest Expansion and Respiratory Effort, Clear to Auscultation Cardiovascular: NL Sounds; No Murmurs; No JVD, RRR, - - Trace B/L LE edema. Abdominal: NL Sounds; No Tenderness; No Distention, No Hepatosplenomegaly Lymphatic: No Cervical Adenopathy Extremities: No Clubbing, Cyanosis Skin: No Rash or Ulcers, No Nodules or Sclerosis Neurological: Alert and Oriented x 3, NL Sensation, NL Muscle Strength and Tone , - - CN II-XII intact. Result Diagrams: 07/01/19 05:47 07/01/19 05:47 Microbiology and Other Data: Microbiology 06/29/19 17:20 Stool Occult Blood (ELIAZAR) - Final Stool 06/28/19 07:20 Urine Culture - Final Urine Assess/Plan/Problems-Billing Assessment: Patient is an 79yo female with a PMH for MDS, Cirrhosis with splenic sequestration, PVD, HTN, here with severe symptomatic anemia and transfusion requirements. - Patient Problems (1) MDS (myelodysplastic syndrome) Current Visit: Yes Status: Acute Code(s): D46.9 - MYELODYSPLASTIC SYNDROME, UNSPECIFIED SNOMED Code(s): 458901244 Comment: - Anemic, Thrombocytopenic - No need for transfusion today (Goal >8.0) - On Jakafi and Prednisone - Feeling subjectively well today - Discuss possible alternative treatments with jack of all trades when available (2) Cirrhosis Current Visit: Yes Status: Acute Comment: - With splenic sequestration and varices - Continue Atenolol - Complicating MDS treatment. (3) HTN (hypertension) Current Visit: No Status: Acute Code(s): I10 - ESSENTIAL (PRIMARY) HYPERTENSION SNOMED Code(s): 79044485 Comment: - Continue Atenolol (4) Hypothyroid Current Visit: No Status: Chronic Priority: Low Code(s): E03.9 - HYPOTHYROIDISM, UNSPECIFIED SNOMED Code(s): 93470630 Comment: - Continue Synthroid (5) Peripheral vascular disease Current Visit: No Status: Chronic Priority: Low Code(s): I73.9 - PERIPHERAL VASCULAR DISEASE, UNSPECIFIED SNOMED Code(s): 591808602 Comment: - Stable (6) DNR (do not resuscitate) Current Visit: No Status: Acute (7) DVT prophylaxis Current Visit: No Status: Acute Priority: Low Code(s): HLH6459 - SNOMED Code(s): 054099785 Comment: - SCDs with severe anemia Status and Disposition: Possibly home tomorrow.
[2019-07-01] MEDS: Zolpidem TAB* 10 MG PO SCH (20:47)
[2019-07-02] MEDS: Levothyroxine TAB* 50 MCG TAB PO SCH (05:35)
[2019-07-02 06:38] LABS: Hematocrit 25 % (35-47); Hemoglobin 8.5 g/dL (12.0-16.0); Mean Corpuscular HGB Conc 35 g/dL (31-36); Mean Corpuscular Hemoglobin 29 pg (27-31); Mean Corpuscular Volume 85 fL (80-97); Mean Platelet Volume 9.6 fL (7.4-10.4); Platelet Count 33 10^3/uL (150-450); Red Blood Count 2.88 10^6 /uL (3.70-4.87); Red Cell Distribution Width 17 % (10-15)
[2019-07-02 06:45] LABS: BUN/Creatinine Ratio 22.3 (8-20); EGFR African American 56.5 (>60); EGFR Non-African American 46.7 (>60); Potassium 4.3 mmol/L (3.5-5.0)
[2019-07-02 06:59] LABS: Polychromasia 1+
[2019-07-02 07:00] LABS: ABS Lymphocytes 0.6 10^3/ul (1.0-4.8); ABS Monocytes 0.2 10^3/ul (0-0.8); ABS Neutrophils 4.2 10^3/ul (1.5-7.7); ABS Nucleated RBC 0.1 10^3/ul; Eosinophil % 0.1 %; Lymphocyte % 11.4 %; Nucleated Red Blood Cells % 0.9
[2019-07-02] MEDS: Mometasone/Formoter 200/5 MDI INH SCH (07:39)
[2019-07-02] MEDS: Calcium Carbonate CHEW TAB* 500 MG (TUMS) PO SCH (08:45)
[2019-07-02] MEDS: Ascorbic Acid TAB* 500 MG PO SCH (08:45)
[2019-07-02] MEDS: Senna TAB 8.6 mg* TAB PO SCH (08:45)
[2019-07-02] MEDS: Atenolol TAB* 25 MG PO SCH (08:46)
[2019-07-02] MEDS: JAKAFI 5 MG PO SCH (08:48)
--- NOTE | 2019-07-02 10:33 | PN ---
Progress Note - Progress Note Date of Service: 07/02/19 SOAP: Subjective: []Overall feeling better. Feels can go home, walking with walker on floor. Breathing stable to improved, eating well enough. Acetaminophen (Tylenol Tab*) 650 mg PO Q4H PRN PRN Reason: PAIN - MILD Ascorbic Acid (Vitamin C Tab*) 500 mg PO DAILY [facility] Last Admin: 07/02/19 08:45 Dose: 500 mg Atenolol (Tenormin Tab*) 25 mg PO DAILY [facility] Last Admin: 07/02/19 08:46 Dose: 25 mg Calcium Carbonate (Tums*) 500 mg PO DAILY [facility] Last Admin: 07/02/19 08:45 Dose: 500 mg Levothyroxine Sodium (Synthroid Tab*) 50 mcg PO DAILY@0600 [facility] Last Admin: 07/02/19 05:35 Dose: 50 mcg Mometasone Furoate/Formoterol Fumar (Dulera 200/5 Mdi*) 2 puff INH BID [facility] Last Admin: 07/02/19 07:39 Dose: 2 puff Pto: Jakafi 5mg (Tablet) 2 dose PO BID [facility] Last Admin: 07/02/19 08:48 Dose: 2 dose Ondansetron HCl (Zofran Inj*) 4 mg IV Q4H PRN PRN Reason: NAUSEA/VOMITING Oxycodone/Acetaminophen (Percocet 5/325 Tab*) 1 tab PO Q4H PRN PRN Reason: PAIN - MODERATE Prednisone (Deltasone Tab*) 30 mg PO DAILY [facility] Last Admin: 07/02/19 08:45 Dose: 30 mg Senna (Senokot 8.6 Mg Tab*) 1 tab PO BID [facility] Last Admin: 07/02/19 08:45 Dose: 1 tab Zolpidem Tartrate (Ambien Tab*) 10 mg PO BEDTIME [facility] Last Admin: 07/01/19 20:47 Dose: 10 mg Objective: [] Vital Signs Temp Pulse Resp BP Pulse Ox 97.7 F 60 15 163/68 97 07/02/19 07:27 07/02/19 07:41 07/02/19 07:41 07/02/19 07:27 07/02/19 07:41 HEENT: pale and ill appearing OM moist CTA +BS +spleen, NT ND Ext +1 DINESH Neuro: AAOx3 MK diffuse weakness, strength 4/5 BL LE Hgb 8.5 Cr 1.12 Assessment: []79 year old with MPD/MDS mixed picture. 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 Admission with FTT at home and we discussed hospice and trial of increased Jakafi and transfusion support. She doing better today and we decided on a trial at home on Jakafi 10 mg po bid and transfusion support , discussed platelet against as well. Plan: []1. Tx 1 U PRBC for hgb > 9.0 2. After PRBC will discharge home. 3. Encouraged activity and oral intake. 4. Continue Jakafi 10 mg po bid. 5. Follow up on Tue in clinic with CBC
--- NOTE | 2019-07-02 13:28 | DS ---
AMENDED REPORT TO REMOVE COSIGNER DISCHARGE SUMMARY: DATE OF ADMISSION: 06/28/19 DATE OF DISCHARGE: 07/02/19 DISCHARGE DIAGNOSES: 1. Myelodysplasia and myeloproliferative disease, JAK2 positive. 2. Cirrhosis. 3. Refractory anemia. 4. Refractory thrombocytopenia. 5. Dehydration with acute renal insufficiency. HOSPITAL COURSE: An 79-year-old female with longstanding myelodysplasia and myeloproliferative disorder has been transition refractory. Presented to the emergency room with weakness and increasing fatigue. Found to have an elevated creatinine of 1.7 from baseline of 0.9 and a hemoglobin of 6.8 with platelets of 24,000. She had been on off Jakafi after hemoglobin dropped previously. She was admitted, given IV fluids and transfusion support. Extensive discussion about continuing treatment for MDS versus hospice. We decided that if she could improve during the weekend and her counts were stable, we would try to continue treatment with transfusion support and titrating up her dose of Jakafi. This has happened and she is going to be discharged home. She did have a hospice consult and if we struggle again as an outpatient, we will transition to outpatient hospice. Creatinine went to 1.05 from 1.6 on admission ; this is close to her baseline dating back to September. All the laboratory studies have been stable. She received 3 units of packed red blood cells so far during this admission and hemoglobin has gone to 8.5. Plan will be to transfuse an additional unit of platelets today and then discharge home with close followup. DISCHARGE MEDICATIONS: 1. Vitamin C 500 mg p.o. daily. 2. Atenolol 25 mg p.o. daily. 3. Calcium 500 mg p.o. daily. 4. Advair Diskus 250/50 one puff b.i.d. 5. Levothyroxine 50 mcg p.o. daily. 6. Prednisone 30 mg p.o. daily. 7. Jakafi 10 mg p.o. b.i.d. 8. Vitamin B complex 1 tab daily. We are holding her Plavix 75 mg daily given persistent thrombocytopenia. FOLLOWUP: Followup will be in 2 days in clinic with a CBC, transfuse as necessary and she will call us for any additional concerns after leaving home. DISPOSITION: Home. CONDITION ON DISCHARGE: Fair. [id number]/[facility] #: [id number] [facility]
[2019-07-02 13:33] VITALS: BP 158/60
== END 2019-07-02 15:20 | disposition home or self-care (01) | DRG 812 ==
LOC: ED 21:17 → MED 06-28 11:52
PROVIDERS: ADMIT Internal Medicine Hematology & Oncology; ATTEND Internal Medicine Hematology & Oncology
PROC: 30233N1 Transfusion of Nonautologous Red Blood Cells into Peripheral Vein, Percutaneous Approach (ICD-10-PCS; principal; 2019-06-28)
PROC: 30233R1 Transfusion of Nonautologous Platelets into Peripheral Vein, Percutaneous Approach (ICD-10-PCS; 2019-06-29)
DX: D46.9 Myelodysplastic syndrome, unspecified (principal); N17.9 Acute kidney failure, unspecified; D46.Z Other myelodysplastic syndromes; K74.60 Unspecified cirrhosis of liver; D46.4 Refractory anemia, unspecified; D69.6 Thrombocytopenia, unspecified; E86.0 Dehydration; J45.909 Unspecified asthma, uncomplicated; I10 Essential (primary) hypertension; E03.9 Hypothyroidism, unspecified; I49.3 Ventricular premature depolarization; R16.1 Splenomegaly, not elsewhere classified; Z66 Do not resuscitate; Z79.02 Long term (current) use of antithrombotics/antiplatelets; Z79.52 Long term (current) use of systemic steroids; Z79.899 Other long term (current) drug therapy; Z88.2 Allergy status to sulfonamides
CPT/HCPCS: 36415; 71045; 74176; 80048; 80053; 81003; 81015; 82272; 83605; 83735; 83880; 84443; 84484; 85025; 85060; 85610; 86850; 86900; 86901; 86922; 87086; 93005; 94640; 99223; 99232; 99284; A9270-GY; G8978-GP-CK; G8979-GP-CJ; J3475; J7512; P9040

== ENCOUNTER 2019-08-09 10:40 | Inpatient (IN) | payer MEDICARE, OTHER ==
[2019-08-09] MEDS ORDERED: Albuterol/Ipratropium NEB.SOL* Albuterol 2.5 MG/Ipratropium 0.5 MG 3 ML INH ONE (11:12)
--- NOTE | 2019-08-09 11:15 | ED ---
Complex/Multi-Sys Presentation - HPI Summary HPI Summary: The patient is an 79 y/o female arriving by ambualcne to [facility] accompanied by family with a chief complaint of weakness and decreased responsiveness this morning. Per , the patient is usually awake and around the house around 0730 in the morning, but he had woken up, and the patient was still in bed. He attempted to get her up as he offered her orange juice, but she declined everything. The patient states that she does remember her offering her the juice, but she was lethargic and did not want to get out of bed, warranting her to come to the ED. EMS report that the patient was hypoxic at 85% on room air. The patient notes a history of asthma with wheezing that she treats with an inhaler and nebulizer machine, but she does not use O2 at home. She is currently taking Prednisone as prescribed by Dr. Arevalo who sees the patient for a low blood count attributed to splenomegaly. She states that she is feeling more awake in the ED. She is not in any pain. PMHx: DM, HTN. Nonsmoker, no EtOH , no substance use. Medications reviewed. Allergies noted. - History Of Current Complaint Chief Complaint: EDWeakness Time Seen by Provider: 08/09/19 10:53 Hx Obtained From: Patient, Family/Mate Chief - , EMS Onset/Duration: Lasting Hours, Resolved Severity Currently: None Severity Initially: Moderate Aggravating Factor(s): unknown Alleviating Factor(s): spontaneous resolution Associated Signs And Symptoms: Positive: Decreased Responsiveness, Weakness - generalized, Other - fatigue - Allergies/Home Medications Allergies/Adverse Reactions: Allergies Allergy/AdvReac Type Severity Reaction Status Date / Time Sulfa (Sulfonamide Allergy Anxiety Verified 08/09/19 10:53 Antibiotics) milk AdvReac Shortness Verified 08/09/19 17:23 of Breath enviromental Allergy Runny Nose Uncoded 08/09/19 10:53 Home Medications: Home Medications Albuterol HFA INHALER* [Ventolin HFA Inhaler*] 2 puff INH Q4H PRN 08/09/19 [ History Confirmed 08/09/19] Albuterol Sulfate 0.63 mg INH .Q4-6H 08/09/19 [History Confirmed 08/09/19] Clopidogrel TAB* [Plavix TAB*] 75 mg PO DAILY 08/09/19 [History Confirmed ] Clotrimazole [Fungi Cure] 2 drop TOPICAL BEDTIME 08/09/19 [History Confirmed ] Iron Ps Complex/B12/Folic Acid [Poly-Iron 150 Forte] 1 cap PO DAILY 08/09/19 [ History Confirmed 08/09/19] Levothyroxine TAB* [Synthroid TAB*] 75 mcg PO DAILY 08/09/19 [History Confirmed 08/09/19] Magnesium Oxide TAB* [MagOx 400 TAB*] 400 mg PO DAILY 08/09/19 [History Confirmed 08/09/19] Ruxolitinib (NF) [Jakafi (NF)] 5 mg PO BID 08/09/19 [History Confirmed 08/09/19] Triamcinolone Acetonide 0.5 % TOPICAL BID 08/09/19 [History Confirmed 08/09/19] Valsartan TAB* [Diovan TAB*] 40 mg PO DAILY 08/09/19 [History Confirmed 08/09/19 ] PMH/Surg Hx/FS Hx/Imm Hx Endocrine/Hematology History: Reports: Hx Diabetes - CONTROLLED W/MEDS Cardiovascular History: Reports: Hx Hypertension Denies: Hx Congestive Heart Failure Respiratory History: Reports: Hx Asthma, Hx Chronic Bronchitis History: Denies: Hx Renal Disease Sensory History: Reports: Hx Contacts or Glasses - Reading glasses, Hx Hearing Aid Opthamlomology History: Reports: Hx Contacts or Glasses - Reading glasses - Cancer History Hx Chemotherapy: No Hx Radiation Therapy: No - Surgical History Surgical History: Yes Surgery Procedure, Year, and Place: hysterectomy,tosilectomy - Immunization History Immunizations Up to Date: Yes Infectious Disease History: No Infectious Disease History: Denies: Traveled Outside the [place] in Last 30 Days - Family History Known Family History: Negative: Diabetes - Social History Alcohol Use: None Hx Substance Use: No Substance Use Type: Reports: None Hx Tobacco Use: No Smoking Status (MU): Never Smoked Tobacco Review of Systems Positive: Fatigue Neurological: Other - decreased responsiveness (resolved) Positive: Weakness - generalized All Other Systems Reviewed And Are Negative: Yes Physical Exam - Summary Physical Exam Summary: Appearance: The patient is well-nourished in no acute distress and in no acute pain. Skin: The skin is warm and dry, and skin color reflects adequate perfusion. HEENT: The head is normocephalic and atraumatic. The pupils are equal and reactive. The conjunctivae are clear and without drainage. Nares are patent and without drainage. Mouth reveals moist mucous membranes, and the throat is without erythema and exudate. The external ears are intact. The ear canals are patent and without drainage. The tympanic membranes are intact. Neck: The neck is supple with full range of motion and non-tender. There are no carotid bruits. There is no neck vein distension. Respiratory: Chest is non-tender. Decreased breath sounds that are otherwise clear to auscultation. Cardiovascular: Heart is regular rate and rhythm. There is no murmur or rub auscultated. There is no peripheral edema and pulses are symmetrical and equal. Abdomen: The abdomen is soft and non-tender. There are normal bowel sounds heard in all four quadrants and there is no organomegaly palpated. Musculoskeletal: There is no back tenderness noted. Extremities are non-tender with full range of motion. There is good capillary refill. There is no peripheral edema or calf tenderness elicited. Neurological: Patient is alert and oriented to person, place and time. The patient has symmetrical motor strength in all four extremities. Cranial nerves are grossly intact. Deep tendon reflexes are symmetrical and equal in all four extremities. Psychiatric: The patient has an appropriate affect and does not exhibit any anxiety or depression. Triage Information Reviewed: Yes Vital Signs On Initial Exam: Initial Vitals Temp Pulse Resp BP Pulse Ox 99.9 F 92 12 132/65 89 08/09/19 10:43 08/09/19 10:43 08/09/19 10:43 08/09/19 10:43 08/09/19 10:43 Vital Signs Reviewed: Yes Procedures - Sedation Patient Received Moderate/Deep Sedation with Procedure: No Diagnostics - Vital Signs Vital Signs Temp Pulse Resp BP Pulse Ox 08/09/19 10:49 79 33 90 08/09/19 10:47 83 26 132/65 87 08/09/19 10:43 99.9 F 92 12 132/65 89 - Laboratory Result Diagrams: 08/09/19 11:22 08/09/19 11:22 Lab Statement: Any lab studies that have been ordered have been reviewed, and results considered in the medical decision making process. - Radiology CXR Radiology Interpretation Completed By: Radiologist Summary of Radiographic Findings: Impression: Relative hypoventilated exam for this patient with associated mild bibasilar atelectasis. ED physician has reviewed this report. - CT Chest CT CT Interpretation Completed By: Radiologist Summary of CT Findings: Impression: 1. No pulmonary arterial filling defect to suggest pulmonary embolism. 2. Small bilateral pleural effusions. 3. Again noted is an enlarged heterogeneous spleen. ED physician has reviewed this report. - EKG 1115 Cardiac Rate: NL - 100 BPM EKG Rhythm: Sinus Rhythm Ectopy: PACs Summary of EKG Findings: An EKG at 1115 reveals normal sinus rhythm at 100 BPM, LBBB, PACs, no STEMI. ED physician has reviewed and interpreted this EKG. Re-Evaluation - Re-Evaluation First Eval Re-Evaluation Time: 14:40 Comment: We discussed plan for admission and CTA Complex Multi-Symp Course/Dx Course Of Treatment: Ms. Hassan clearly had respiratory insufficiency here. Her pulse ox would drop below 90% with any activity. She did not have any wheezes that I could appreciate and her chest x-ray did not show hyperinflation. She did not improve with a DuoNeb. She did not have a leukocytosis and there was no sign of infection. She was anemic but she is chronically anemic. CTA showed no sign of pulmonary embolism. I spoke with Dr. Chapa about admission although I'm not sure of the etiology. - Diagnoses Provider Diagnoses: Shortness of breath, Respiratory insufficiency - Physician Notifications Discussed Care Of Patient With: Althea Chapa - oncology Time Discussed With Above Provider: 14:30 Instructed by Provider To: Other - I discussed the patients case with Dr. Chapa, who accepts the patient for admission. - Critical Care Time Critical Care Time: 30-74 min Discharge ED - Sign-Out/Discharge Documenting (check all that apply): Patient Departure - Patient accepted for admission by Dr. Chapa. - Discharge Plan Condition: Stable Disposition: ADMITTED TO [facility] Referrals: Lloyd Booth MD [Primary Care Provider] - - Billing Disposition and Condition Condition: STABLE Disposition: Admitted to [facility] - Attestation Statements Document Initiated by Scribe: Yes Documenting Scribe: Amira Escobar Provider For Whom Scribe is Documenting (Include Credential): Dr. Pranay Garcia MD Scribe Attestation: I, Amira Escobar, scribed for Dr. Pranay Garcia MD on 08/09/19 at 1750. Scribe Documentation Reviewed: Yes Provider Attestation: The documentation as recorded by the scribe, Amira Escobar accurately reflects the service I personally performed and the decisions made by me, Dr. Pranay Garcia MD Status of Scribe Document: Viewed
[2019-08-09 11:39] LABS: ABS Lymphocytes 0.5 10^3/ul (1.0-4.8); ABS Monocytes 0.2 10^3/ul (0-0.8); ABS Neutrophils 4.9 10^3/ul (1.5-7.7); ABS Nucleated RBC 0.1 10^3/ul; Eosinophil % 0.2 %; Hematocrit 22 % (35-47); Hemoglobin 7.7 g/dL (12.0-16.0); Lymphocyte % 9.6 %; Mean Corpuscular HGB Conc 35 g/dL (31-36); Mean Corpuscular Hemoglobin 31 pg (27-31); Mean Corpuscular Volume 88 fL (80-97); Mean Platelet Volume 7.8 fL (7.4-10.4); Nucleated Red Blood Cells % 1.7; Platelet Count 31 10^3/uL (150-450); Red Blood Count 2.52 10^6 /uL (3.70-4.87); Red Cell Distribution Width 17 % (10-15); White Blood Count 5.7 10^3/uL (3.5-10.8)
[2019-08-09 11:51] LABS: INR 1.36 (0.82-1.09)
[2019-08-09 11:54] LABS: ALT 41 U/L (7-52); AST 24 U/L (13-39); Albumin 3.8 g/dL (3.2-5.2); Albumin/Globulin Ratio 1.9 (1-3); Alkaline Phosphatase 127 U/L (34-104); Anion Gap 8 mmol/L (2-11); BUN/Creatinine Ratio 19.8 (8-20); Blood Urea Nitrogen 25 mg/dL (6-24); C Reactive Protein 84.83 mg/L (<8.01); CO2 Carbon Dioxide 28 mmol/L (22-32); Calcium 8.9 mg/dL (8.6-10.3); Chloride 105 mmol/L (101-111); EGFR African American 49.3 (>60); EGFR Non-African American 40.8 (>60); Glucose 90 mg/dL (70-100); Potassium 3.9 mmol/L (3.5-5.0); Sodium 141 mmol/L (135-145); Total Protein 5.8 g/dL (6.4-8.9)
[2019-08-09 11:57] LABS: Troponin I 0.04 ng/mL (<0.03)
[2019-08-09 12:23] LABS: Influenza A Molecular NEGATIVE (Negative); Influenza B Molecular NEGATIVE (Negative)
[2019-08-09] MEDS ORDERED: Iodixanol* (CONTRAST) 320 MG/ML 100 ML SDV IV ONE (14:38)
[2019-08-09 16:06] LABS: Urine Appearance Clear; Urine Bilirubin Negative (Negative); Urine Blood Negative (Negative); Urine Color Yellow; Urine Glucose Negative (Negative); Urine Ketones Negative (Negative); Urine Nitrite Negative (Negative); Urine Protein 1+(30 mg/dL) (Negative); Urine Specific Gravity 1.044 (1.010-1.030); Urine Urobilinogen Negative (Negative)
[2019-08-09 16:18] LABS: Urine Bacteria Absent (Absent); Urine Red Blood Cell Absent (Absent); Urine Squamous Epithelial Cell Present (Absent); Urine White Blood Cell Absent (Absent)
[2019-08-09] MEDS: Albuterol/Ipratropium NEB.SOL* Albuterol 2.5 MG/Ipratropium 0.5 MG 3 ML INH PRN (19:31)
[2019-08-09] MEDS: cefTRIAXone(*) 1 GM in NS 0.9% 50 ML* 50 ML IVPB SCH (20:31)
[2019-08-09] MEDS ORDERED: Acetaminophen TAB* 325 MG PO ONE (23:00)
[2019-08-10 06:22] LABS: Albumin 3.4 g/dL (3.2-5.2); Albumin/Globulin Ratio 1.7 (1-3); BUN/Creatinine Ratio 20.5 (8-20); Calcium 8.6 mg/dL (8.6-10.3); EGFR African American 41.6 (>60); EGFR Non-African American 34.4 (>60); Potassium 3.7 mmol/L (3.5-5.0); Total Bilirubin 2.1 mg/dL (0.2-1.0); Total Protein 5.4 g/dL (6.4-8.9)
[2019-08-10 06:23] LABS: Hematocrit 25 % (35-47); Mean Corpuscular HGB Conc 36 g/dL (31-36); Mean Corpuscular Hemoglobin 31 pg (27-31); Mean Corpuscular Volume 88 fL (80-97); Mean Platelet Volume 8.2 fL (7.4-10.4); Platelet Count 27 10^3/uL (150-450); Red Blood Count 2.88 10^6 /uL (3.70-4.87); Red Cell Distribution Width 17 % (10-15); White Blood Count 6.4 10^3/uL (3.5-10.8)
[2019-08-10 07:02] LABS: Polychromasia 1+
[2019-08-10 07:03] LABS: ABS Basophils 0.1 10^3/ul (0-0.2); ABS Lymphocytes 0.5 10^3/ul (1.0-4.8); ABS Monocytes 0.5 10^3/ul (0-0.8); ABS Neutrophils 5.4 10^3/ul (1.5-7.7); ABS Nucleated RBC 0.1 10^3/ul; Eosinophil % 0.1 %; Lymphocyte % 7.9 %; Nucleated Red Blood Cells % 1.7
[2019-08-10] MEDS ORDERED: KCL 10 MEQ/50 ML IVPREMIX* 10 MEQ/50 ML BAG IV ONE (10:18)
--- NOTE | 2019-08-10 10:31 | ECHO ---
*[facility]* [place] [address] Fax #: [phone] Transthoracic Echocardiogram Patient: Meghna Hassan : 1940 Study Date: 08/10/2019 Age: 79 Gender: F HR: 132 bpm Height: 63 in /160 cm BSA: 1.71 m^2 Weight: 149.7 lb /68 kg BMI: 26.6 kg/m^2 *Plumbing Technician: * Ignacia Ramirez RD *Referring Physician: * Helen WisemanReading Physician: * Ladi Edgar MD Indications: SOB. History: Asthma. Risk factors: Hypertension. Diabetes mellitus. Conclusions Summary: - Left ventricle: Systolic function is at the lower limits of normal. The estimated ejection fraction is 50-55%. LBBB and tachycardia. Difficult to make and overall estimate but left ventricle ejection fraction appears preserved. - Mitral valve: There is mild regurgitation. - Tricuspid valve: There is moderate regurgitation. - Pulmonary arteries: Systolic pressure is moderately increased. - C/t 12/26/2018, stable. PHTN was mild then. Study data: Transthoracic echocardiogram. Procedure: Transthoracic echocardiography was performed. Image quality was good. Complete 2D, spectral Doppler, and color flow Doppler. Location: Bedside. Patient status: Inpatient. Patient room number: 414-02. Rhythm: Atrial fibrillation. Findings Left ventricle: The cavity size is normal. Wall thickness is normal. Systolic function is at the lower limits of normal. The estimated ejection fraction is 50-55%. LBBB and tachycardia. Difficult to make and overall estimate but left ventricle ejection fraction appears preserved. Wall motion is normal; there are no regional wall motion abnormalities. Left ventricular diastolic function parameters are indeterminate. Right ventricle: The cavity size is normal. Systolic function is normal. Left atrium: The atrium is normal in size. Right atrium: The atrium is normal in size. Mitral valve: The leaflets are mildly thickened. There is no evidence of stenosis. There is mild regurgitation. Aortic valve: The valve is trileaflet. The leaflets are mildly thickened. Focal thickening involving the noncoronary cusp. There is no evidence of stenosis. There is no significant regurgitation. Tricuspid valve: The leaflets are normal thickness. There is no evidence of stenosis. There is moderate regurgitation. Pulmonic valve: The leaflets are normal thickness. There is no evidence of stenosis. There is trace regurgitation. Aorta: Aortic root: The aortic root is appears normal. Ascending aorta: The ascending aorta is appears normal. Aortic arch: The aortic arch is poorly visualized. Pericardium: There is no significant pericardial effusion. Pulmonary arteries: The main pulmonary artery is normal-sized. Systolic pressure is moderately increased. Systemic veins: Inferior vena cava: The vessel is normal in size. There is (>= 50%) respiratory change in the IVC dimension. Measurements Left ventricle Value Ref Right atrium continued Value Ref MARIBELL, LAX (L) 3.6 cm 3.8 - 5.2 ML dim, ES, A4C 3.8 cm 2.6 - 4.4 ESD, LAX 2.6 cm 2.2 - 3.5 Estimated RAP 3 mm Hg --------- FS, LAX 28 % 45 PW, ED, LAX (H) 1.1 cm 0.6 - 0.9 Aortic valve Value Ref FS 28 % 45 Cristina diam, ED 1.8 cm --------- PW, ED (H) 1.1 cm 0.6 - 0.9 Peak v, S 1.66 m/sec --------- E', lat cristina, TDI 10.1 cm/sec >=10.0 VTI, S 22.4 cm -- ------- E/e', lat cristina, 11 Mean grad, S 4.0 mm Hg ----- ---- TDI Peak grad, S 11.0 mm Hg --------- E', med cristina, TDI 7.7 cm/sec >=7.0 LVOT/AV, VTI ratio 0.63 -- ------- E/e', med cristina, 15 TDI Mitral valve Value Ref E', avg, TDI 8.9 cm/sec Peak E 1.15 m/sec ----- ---- E/e', avg, TDI 13 <=14 Decel time 109 ms -- ------- Peak grad, D 5.3 mm Hg --------- LVOT Value Ref Peak tamar, S 0.98 m/sec Pulmonic valve Value Ref VTI, S 14.0 cm Peak v, S 1.28 m/sec --------- Mean grad, S 2 mm Hg Peak grad, S 7.0 mm Hg --------- Ventricular septum Value Ref Tricuspid valve Value Ref IVS, ED (H) 1.1 cm 0.6 - 0.9 TR peak v (H) 3.7 m/sec <=2.8 Peak RV-RA grad, S 55 mm Hg --------- Right ventricle Value Ref MARIBELL, LAX 2.6 cm Aortic root Value Ref MARIBELL minor ax, A4C 3.2 cm 1.9 - 3.5 Root diam 2.8 cm <3.9 mid Pressure, S 58 mm Hg Ascending aorta Value Ref AAo AP diam, S 3.2 cm --------- Left atrium Value Ref AP dim, ES 3.70 cm 2.70 - Pulmonary artery Value Ref 3.80 Pressure, S 51.0 mm Hg --------- ML dim, A4C 3.7 cm SI dim, A4C 4.8 cm Inferior vena cava Value Ref Vol/bsa, ES, 1-p 20 ml/m^2 11 - 40 Diam 1.4 cm --------- A4C Vol/bsa, ES, A/L 33 ml/m^2 16 - 34 Right atrium Value Ref SI dim, ES 4.9 cm 3.4 - 5.3 Legend: (L) and (H) mica values outside specified reference range. Prepared and electronically signed by Ladi Edgar MD 08/10/2019 10:30
--- NOTE | 2019-08-10 10:40 | PN ---
Progress Note - Progress Note Date of Service: 08/10/19 SOAP: Subjective: Developed fever during transfusion, transfusion reaction evaluation in progress Blood cultures pending WBC 6.4 Hg 9 platelets 27 ANC 5400 with leukoerthryoblastic differential On Ceftriaxone Day+2 for possible basilar pneumonia Has developed SVT with LBBB this am and now in transfer to [facility] Objective: Alert and conversive, family in PERRLA, pallor Neck supple cardiac Tachycardia Lungs decreased breath sounds at bases abdomen with splenomegaly extrem w/o CCE Neurologic nonfocal Vital Signs - 8 hr 08/10/19 03:07 Temperature 98.8 F Pulse Rate 68 Respiratory 26 Rate Blood Pressure 118/48 (mmHg) O2 Sat by Pulse 99 Oximetry Laboratory Results - last 24 hr 08/09/19 08/09/19 08/09/19 11:22 11:22 11:22 WBC 5.7 RBC 2.52 L Hgb 7.7 L Hct 22 L MCV 88 MCH 31 MCHC 35 RDW 17 H Plt Count 31 L MPV 7.8 Neut % (Auto) 86.0 Lymph % (Auto) 9.6 Moffat % (Auto) 3.7 Eos % (Auto) 0.2 Baso % (Auto) 0.5 Absolute Neuts (auto) 4.9 Absolute Lymphs (auto) 0.5 L Absolute Monos (auto) 0.2 Absolute Eos (auto) 0.0 Absolute Basos (auto) 0.0 Absolute Nucleated RBC 0.1 Immature Gran % 22.0 H Neutrophils % 64.0 Band Neutrophils % 13.0 H Lymphocytes % 9.0 Reactive Lymphs % Monocytes % Basophils % 2.0 Metamyelocytes % 5.0 H Myelocytes % 4.0 H Blast Cells % 3.0 H* Nucleated RBC % 1.7 Nucleated RBCs/100 WBC 2.0 H Normal RBC Morphology Normal Polychromasia Basophilic Stippling Anisocytosis Hem Pathologist Commnt INR (Anticoag Therapy) Sodium 141 Potassium 3.9 Chloride 105 Carbon Dioxide 28 Anion Gap 8 BUN 25 H Creatinine 1.26 H Est GFR ( Amer) 49.3 Est GFR (Non-Af Amer) 40.8 BUN/Creatinine Ratio 19.8 Glucose 90 Lactic Acid 1.5 Calcium 8.9 Total Bilirubin 1.60 H AST 24 ALT 41 Alkaline Phosphatase 127 H Troponin I 0.04 H* C-Reactive Protein 84.83 H B-Natriuretic Peptide Total Protein 5.8 L Albumin 3.8 Globulin 2.0 Albumin/Globulin Ratio 1.9 Urine Color Urine Appearance Urine pH Ur Specific [place] Urine Protein Urine Ketones Urine Blood Urine Nitrate Urine Bilirubin Urine Urobilinogen Ur Leukocyte Esterase Urine WBC (Auto) Urine RBC (Auto) Ur Squamous Epith Cells Urine Bacteria Urine Glucose Influenza A (Rapid) Influenza B (Rapid) Blood Type Antibody Screen Crossmatch Transfusion React Rpt Donor Unit # Post-Trans Blood Type Post-Trans TAI 08/09/19 08/09/19 08/09/19 11:22 11:22 11:22 WBC RBC Hgb Hct MCV MCH MCHC RDW Plt Count MPV Neut % (Auto) Lymph % (Auto) [place]at % (Auto) Eos % (Auto) Baso % (Auto) Absolute Neuts (auto) Absolute Lymphs (auto) Absolute Monos (auto) Absolute Eos (auto) Absolute Basos (auto) Absolute Nucleated RBC Immature Gran % Neutrophils % Band Neutrophils % Lymphocytes % Reactive Lymphs % Monocytes % Basophils % Metamyelocytes % Myelocytes % Blast Cells % Nucleated RBC % Nucleated RBCs/100 WBC Normal RBC Morphology Polychromasia Basophilic Stippling Anisocytosis Hem Pathologist Commnt INR (Anticoag Therapy) 1.36 H Sodium Potassium Chloride Carbon Dioxide Anion Gap BUN Creatinine Est GFR ( Amer) Est GFR (Non-Af Amer) BUN/Creatinine Ratio Glucose Lactic Acid Calcium Total Bilirubin AST ALT Alkaline Phosphatase Troponin I C-Reactive Protein B-Natriuretic Peptide 410 H Total Protein Albumin Globulin Albumin/Globulin Ratio Urine Color Urine Appearance Urine pH Ur Specific [place] Urine Protein Urine Ketones Urine Blood Urine Nitrate Urine Bilirubin Urine Urobilinogen Ur Leukocyte Esterase Urine WBC (Auto) Urine RBC (Auto) Ur Squamous Epith Cells Urine Bacteria Urine Glucose Influenza A (Rapid) Influenza B (Rapid) Blood Type O Positive Antibody Screen Negative Crossmatch See Detail Transfusion React Rpt Donor Unit # Post-Trans Blood Type Post-Trans TAI 08/09/19 08/09/19 08/09/19 11:55 15:45 20:25 WBC RBC Hgb Hct MCV MCH MCHC RDW Plt Count MPV Neut % (Auto) Lymph % (Auto) [place] % (Auto) Eos % (Auto) Baso % (Auto) Absolute Neuts (auto) Absolute Lymphs (auto) Absolute Monos (auto) Absolute Eos (auto) Absolute Basos (auto) Absolute Nucleated RBC Immature Gran % Neutrophils % Band Neutrophils % Lymphocytes % Reactive Lymphs % Monocytes % Basophils % Metamyelocytes % Myelocytes % Blast Cells % Nucleated RBC % Nucleated RBCs/100 WBC Normal RBC Morphology Polychromasia Basophilic Stippling Anisocytosis Hem Pathologist Commnt INR (Anticoag Therapy) Sodium Potassium Chloride Carbon Dioxide Anion Gap BUN Creatinine Est GFR ( Amer) Est GFR (Non-Af Amer) BUN/Creatinine Ratio Glucose Lactic Acid Calcium Total Bilirubin AST ALT Alkaline Phosphatase Troponin I C-Reactive Protein B-Natriuretic Peptide Total Protein Albumin Globulin Albumin/Globulin Ratio Urine Color Yellow Urine Appearance Clear Urine pH 8.0 Ur Specific [place] 1.044 H Urine Protein 1+(30 mg/dl) A Urine Ketones Negative Urine Blood Negative Urine Nitrate Negative Urine Bilirubin Negative Urine Urobilinogen Negative Ur Leukocyte Esterase Negative Urine WBC (Auto) Absent Urine RBC (Auto) Absent Ur Squamous Epith Cells Present A Urine Bacteria Absent Urine Glucose Negative Influenza A (Rapid) Negative Influenza B (Rapid) Negative Blood Type Antibody Screen Crossmatch Transfusion React Rpt Donor Unit # [id number] Post-Trans Blood Type O Positive Post-Trans TAI Negative 08/10/19 08/10/19 05:35 05:35 WBC 6.4 RBC 2.88 L Hgb 9.0 L Hct 25 L MCV 88 MCH 31 MCHC 36 RDW 17 H Plt Count 27 L D MPV 8.2 Neut % (Auto) 84.1 Lymph % (Auto) 7.9 Moffat % (Auto) 7.1 Eos % (Auto) 0.1 Baso % (Auto) 0.8 Absolute Neuts (auto) 5.4 Absolute Lymphs (auto) 0.5 L Absolute Monos (auto) 0.5 Absolute Eos (auto) 0.0 Absolute Basos (auto) 0.1 Absolute Nucleated RBC 0.1 Immature Gran % 9.0 Neutrophils % 72.0 Band Neutrophils % 7.0 Lymphocytes % 6.0 Reactive Lymphs % 6.0 Monocytes % 5.0 Basophils % 2.0 Metamyelocytes % Myelocytes % 2.0 H Blast Cells % Nucleated RBC % 1.7 Nucleated RBCs/100 WBC 4.0 H Normal RBC Morphology Not Reportable Polychromasia 1+ Basophilic Stippling 1+ Anisocytosis 1+ Hem Pathologist Commnt INR (Anticoag Therapy) Sodium 141 Potassium 3.7 Chloride 106 Carbon Dioxide 28 Anion Gap 7 BUN 30 H Creatinine 1.46 H Est GFR ( Amer) 41.6 Est GFR (Non-Af Amer) 34.4 BUN/Creatinine Ratio 20.5 H Glucose 88 Lactic Acid Calcium 8.6 Total Bilirubin 2.10 H AST 22 ALT 33 Alkaline Phosphatase 106 H Troponin I C-Reactive Protein B-Natriuretic Peptide Total Protein 5.4 L Albumin 3.4 Globulin 2.0 Albumin/Globulin Ratio 1.7 Urine Color Urine Appearance Urine pH Ur Specific [place] Urine Protein Urine Ketones Urine Blood Urine Nitrate Urine Bilirubin Urine Urobilinogen Ur Leukocyte Esterase Urine WBC (Auto) Urine RBC (Auto) Ur Squamous Epith Cells Urine Bacteria Urine Glucose Influenza A (Rapid) Influenza B (Rapid) Blood Type Antibody Screen Crossmatch Transfusion React Rpt Donor Unit # Post-Trans Blood Type Post-Trans TAI Intake and Output Last 24 Hours 08/08/19 08/09/19 08/10/19 08/11/19 06:59 06:59 06:59 06:59 Intake Total 533 60 Balance 533 60 Weight 159 lb Intake: IVPB 50 ABX - CEFTRIAXONE 50 Oral 200 60 Packed Cells 283 Other: Estimated Void Medium # Bowel Movements 0 # Voids 1 Albuterol/Ipratropium (Duoneb (Albuterol 2.5 Mg/Ipratropium 0.5 Mg)) 1 neb INH Q6H PRN PRN Reason: SOB/WHEEZING Last Admin: 08/09/19 19:31 Dose: 1 neb Ceftriaxone Sodium 1 gm/ (Sodium Chloride) 50 mls @ 100 mls/hr IVPB Q24H TERRANCE Last Admin: 08/09/19 20:31 Dose: 100 mls/hr Diltiazem/Dextrose (Cardizem Iv D5w Bag* Premix) 125 mg in 125 mls @ 10 mls/hr IV .PER PROTOCOL TERRANCE; Protocol Potassium Chloride (Potassium Chloride 10 Meq/50 Ml Ivpremix*) 10 meq in 50 mls @ 50 mls/hr IV ONCE ONE Stop: 08/10/19 11:17 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
[2019-08-10] MEDS ORDERED: Diltiazem IV BAG* D5W Premix 125 MG/125 ML BAG IV SCH ×2 (11:00→20:00)
[2019-08-10 11:04] LABS: Magnesium 1.7 mg/dL (1.9-2.7)
[2019-08-10] MEDS ORDERED: Magnesium Sulfate 2 GM IV* 2 GM/50 ML BAG IVPB ONE (11:08)
[2019-08-10 11:10] LABS: Troponin I 0.05 ng/mL (<0.03)
[2019-08-10 11:35] LABS: T4, Total 6.33 mcg/dL (6.09-12.23)
[2019-08-10 11:42] LABS: TSH (Thyroid Stimulating Horm) 0.3 mcIU/mL (0.34-5.60)
[2019-08-10] MEDS ORDERED: Metoprolol Tartrate IV* 1 MG/ML 5 ML VIAL IV ONE (12:35)
[2019-08-10] MEDS ORDERED: Diltiazem IV push/loading dose 5 MG/ML 5 ML vial (25 mg) IV SLOW PU ONE (13:45)
--- NOTE | 2019-08-10 15:47 | CONS ---
CC: Dr. Garsia ; Dr. Edgar CARDIOLOGY CONSULT: DATE OF CONSULT: 08/10/19 HISTORY OF PRESENT ILLNESS: I was asked by Dr. Garsia to see this 79-year-old female patient with his tory of myelofibrosis and admitted recently with weakness and anemia, found to be anemic, receiving b lood transfusion and also possible pneumonia. Also, there was some mention of possible transfusion r eaction versus underlying pneumonia. Cardiology consult was requested as the patient was noticed to have SVT, heart rate up to 170 and also left bundle branch block. The patient gives no cardiac histo ry. She had no history of myocardial infarction, no history of congestive heart failure, there was n o history of arrhythmia in the past. No history of coronary artery disease. There was no history of diabetes mellitus and there was history of hypertension, hypothyroidism, history of peripheral vascu lar disease and splenomegaly. Her past surgical history includes femoral bypass surgery, December 2014. Social history, no smoking, no alcoholism. She is , lives with . Because of her weak ness, anemia, and possible pneumonia, she was hospitalized. She gives currently no fever, no chills, no nausea, no vomiting, no hematochezia, no skin rash, no abdominal pain, no syncope, no major swell ing of the lower extremities, no orthopnea, no PND is appreciated. PAST MEDICAL HISTORY: As mentioned above. PAST SURGICAL HISTORY: As mentioned above. MEDICATIONS: As an outpatient include: 1. Advair. 2. Atenolol 25 mg daily. 3. B12 daily. 4.. Plavix 75 mg daily. 5. Levothyroxine 75 mcg daily. 6. Magnesium 500 mg daily. 7. Omeprazole 40 mg daily. 8. Prednisone 30 mg daily. 9. Valsartan 40 mg daily. 10. Ventolin inhaler. ALLERGIES: Include SULFA. SOCIAL HISTORY: As mentioned above. REVIEW OF SYSTEMS: Review of all other systems is essentially negative. PHYSICAL EXAM: General: On exam, she is awake, alert, and oriented. She feels weak and tired and l ooks frail, but she has no chest pain. Vital Signs: Blood pressure 123/70, pulse 135, temperature 9 8.5, respiratory rate 20. Head and Neck Exam: Ears, nose, and throat essentially benign. Neck: Peguero pple. JVP is not elevated. No carotid bruits. No masses in the neck is appreciated. Chest: Clear to auscultation. No rales, no wheezes, no added sounds appreciated. Heart: Normal, but tachycardic. S1, S2. No added sounds. No gallops. No rubs. No significant added sounds. There is a grade 2/6 systolic murmur in the apex. Abdomen: Benign. Positive bowel sounds. Extremities: No edema. No c yanosis. No clubbing. Skin Exam: Normal. Psych: Normal affect and mood. ELECTRICAL SUBCONTRACTOR: No focal deficit a ppreciated. DIAGNOSTIC STUDIES/LAB DATA: She had an EKG that is from today actually showed her to be in what devonte ears to be left bundle branch block and SVT with heart rate 170 beats per minute. This was done toda y at 8:49 in the morning. Her EKG from yesterday, 08/09/19 showed sinus rhythm, PACs possible and le ft bundle branch block. Heart rate 100 beats per minute. Her labs showed the following: Sodium 141, potassium 3.7, chloride 106, total CO2 of 28, BUN 30, cre atinine 1.46, magnesium 1.7. LFTs normal. Troponin 0.04 and then 0.05, probably related to her tach ycardia. CRP 85. BNP 410. Proteins normal. TSH 0.30, T4 of 6.3. White blood cells 6.4, hemoglobi n was 7.7 yesterday, today 9. Hematocrit 25, platelets 27. Her chest x-ray done on 08/09/19, which is yesterday, relative hypoventilation and possible atelectas is. IMPRESSION: The patient is an 79-year-old female with, 1. Presentation with generalized weakness, fatigue and found to be anemic, possible pneumonia. The patient with known history of myelofibrosis, followed up with Hem/Onc. 2. The patient had an episode of supraventricular tachycardia, which could be multifactorial in natu re including anemia with significant myelofibrosis, low platelet with possible pneumonia and low elec trolyte, especially her potassium of 3.7 and magnesium 1.7, possible dehydration. 3. History of systemic arterial hypertension. 4. Chronic left bundle branch block. 5. Normal left ventricular systolic function with an EF 50% to 55% by an echo done today. 6. Mild mitral insufficiency. 7. Moderate tricuspid insufficiency. 8. Moderate pulmonary hypertension. PLAN: As I discussed her with Dr. Garsia, priority is for correction of her anemia, low platelets and continued treatment as you are already doing for hydration, possible pneumonia and correction for he r electrolytes, especially her potassium and magnesium as you are already doing. I understand and I agree she is on IV Cardizem, which is to continue. IV Lopressor p.r.n. to be used for tachycardia. W e might need to bolus her again with Cardizem for rate control, but hopefully once the above factors are corrected, as you are already doing, hopefully this will help her heart rate slow down. The last heart rate was about 120, she is in sinus tachycardia. Continue hydration, it is important in her ca se, especially if there is pneumonia. I have discussed this with the patient as well as with her hus band. She is DNR and wants to continue with this status. TIME SPENT: More than half of at least 60 to 65 plus minutes was in education and counseling mode, e xplaining the above and making further recommendations and decision making. Thank you very much for asking us to participate in the care of this patient. [id number]/[facility] #: [id number]
[2019-08-10] MEDS: cefTRIAXone(*) 1 GM in NS 0.9% 50 ML* 50 ML IVPB SCH (17:21)
[2019-08-10] MEDS: Diltiazem IV BAG* D5W Premix 125 MG/125 ML BAG IV SCH ×2 (20:29→21:52)
[2019-08-11 05:31] LABS: Anion Gap 10 mmol/L (2-11); Blood Urea Nitrogen 28 mg/dL (6-24); CO2 Carbon Dioxide 21 mmol/L (22-32); Chloride 106 mmol/L (101-111); Glucose 121 mg/dL (70-100); Potassium 3.6 mmol/L (3.5-5.0); Sodium 137 mmol/L (135-145)
[2019-08-11 05:32] LABS: ALT 25 U/L (7-52); AST 16 U/L (13-39); Albumin 3.2 g/dL (3.2-5.2); Albumin/Globulin Ratio 1.5 (1-3); Alkaline Phosphatase 91 U/L (34-104); BUN/Creatinine Ratio 24.8 (8-20); Calcium 8.8 mg/dL (8.6-10.3); EGFR African American 55.9 (>60); EGFR Non-African American 46.2 (>60); Globulin 2.2 g/dL (2-4); Total Protein 5.4 g/dL (6.4-8.9)
[2019-08-11 05:41] LABS: Troponin I 0.08 ng/mL (<0.03)
[2019-08-11 05:52] LABS: Microcytosis 1+; Polychromasia 1+
[2019-08-11 05:53] LABS: ABS Lymphocytes 0.3 10^3/ul (1.0-4.8); ABS Monocytes 0.4 10^3/ul (0-0.8); ABS Neutrophils 4.5 10^3/ul (1.5-7.7); Eosinophil % 0.1 %; Hematocrit 24 % (35-47); Hemoglobin 8.7 g/dL (12.0-16.0); Lymphocyte % 5.4 %; Mean Corpuscular HGB Conc 36 g/dL (31-36); Mean Corpuscular Hemoglobin 31 pg (27-31); Mean Corpuscular Volume 86 fL (80-97); Mean Platelet Volume 8.4 fL (7.4-10.4); Nucleated Red Blood Cells % 0.7; Platelet Count 20 10^3/uL (150-450); Red Blood Count 2.83 10^6 /uL (3.70-4.87); Red Cell Distribution Width 17 % (10-15); White Blood Count 5.2 10^3/uL (3.5-10.8)
[2019-08-11] MEDS: Diltiazem IV BAG* D5W Premix 125 MG/125 ML BAG IV SCH (07:48)
--- NOTE | 2019-08-11 07:52 | PN ---
Progress Note - Progress Note Date of Service: 08/11/19 SOAP: Subjective: much more alert this am. able to tell me she is in the hospital because she is anemic. wheezing this am "i am asthmatic" denies pain. Objective: Vital Signs Temp Pulse Resp BP Pulse Ox 98.2 F 81 20 123/59 100 08/11/19 04:10 08/11/19 04:10 08/11/19 04:10 08/11/19 06:32 08/11/19 04:10 sitting up in nad perr eomi op moist irr irr exp wheeze right side soft nt +Bs no le edema awake, oriented, pleasand and nonfocal Laboratory Results - last 24 hr 08/09/19 08/10/19 08/10/19 11:22 10:31 10:31 WBC RBC Hgb Hct MCV MCH MCHC RDW Plt Count MPV Neut % (Auto) Lymph % (Auto) [place] % (Auto) Eos % (Auto) Baso % (Auto) Absolute Neuts (auto) Absolute Lymphs (auto) Absolute Monos (auto) Absolute Eos (auto) Absolute Basos (auto) Absolute Nucleated RBC Immature Gran % Neutrophils % Band Neutrophils % Lymphocytes % Reactive Lymphs % Monocytes % Metamyelocytes % Myelocytes % Nucleated RBC % Normal RBC Morphology Polychromasia Hypochromasia Anisocytosis Microcytosis Sodium Potassium Chloride Carbon Dioxide Anion Gap BUN Creatinine Est GFR ( Amer) Est GFR (Non-Af Amer) BUN/Creatinine Ratio Glucose Calcium Magnesium 1.7 L Total Bilirubin AST ALT Alkaline Phosphatase Troponin I 0.05 H* Total Protein Albumin Globulin Albumin/Globulin Ratio TSH 0.30 L Thyroxine (T4) 6.33 Blood Type O Positive Antibody Screen Negative Crossmatch See Detail 08/11/19 08/11/19 04:48 04:48 WBC 5.2 RBC 2.83 L Hgb 8.7 L Hct 24 L MCV 86 MCH 31 MCHC 36 RDW 17 H Plt Count 20 L MPV 8.4 Neut % (Auto) 86.1 Lymph % (Auto) 5.4 [place] % (Auto) 7.8 Eos % (Auto) 0.1 Baso % (Auto) 0.6 Absolute Neuts (auto) 4.5 Absolute Lymphs (auto) 0.3 L Absolute Monos (auto) 0.4 Absolute Eos (auto) 0.0 Absolute Basos (auto) 0.0 Absolute Nucleated RBC 0.0 Immature Gran % 8.0 Neutrophils % 78.0 Band Neutrophils % 4.0 Lymphocytes % 8.0 Reactive Lymphs % 1.0 Monocytes % 5.0 Metamyelocytes % 2.0 Myelocytes % 2.0 H Nucleated RBC % 0.7 Normal RBC Morphology Not Reportable Polychromasia 1+ Hypochromasia 2+ Anisocytosis 1+ Microcytosis 1+ Sodium 137 Potassium 3.6 Chloride 106 Carbon Dioxide 21 L Anion Gap 10 BUN 28 H Creatinine 1.13 H Est GFR ( Amer) 55.9 Est GFR (Non-Af Amer) 46.2 BUN/Creatinine Ratio 24.8 H Glucose 121 H Calcium 8.8 Magnesium 2.0 Total Bilirubin 1.70 H AST 16 ALT 25 Alkaline Phosphatase 91 Troponin I 0.08 H* Total Protein 5.4 L Albumin 3.2 Globulin 2.2 Albumin/Globulin Ratio 1.5 TSH Thyroxine (T4) Blood Type Antibody Screen Crossmatch Albuterol/Ipratropium (Duoneb (Albuterol 2.5 Mg/Ipratropium 0.5 Mg)) 1 neb INH Q6H PRN PRN Reason: SOB/WHEEZING Last Admin: 08/09/19 19:31 Dose: 1 neb Ceftriaxone Sodium 1 gm/ (Sodium Chloride) 50 mls @ 100 mls/hr IVPB Q24H TERRANCE Last Admin: 08/10/19 17:21 Dose: 100 mls/hr Diltiazem/Dextrose (Cardizem Iv D5w Bag* Premix) 125 mg in 125 mls @ 15 mls/hr IV PER RATE TERRANCE; Protocol Last Admin: 08/11/19 07:48 Dose: 15 mls/hr Assessment: 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 will give duoneb and continue Abx for now. resume advair low threshold to add steroids hypothyroidism: resume PO levothyroxine now that awake and alert no dvt prophylaxis with thrombocytopenia DNR
[2019-08-11] MEDS ORDERED: KCL 20 MEQ/100 ML IVPREMIX* 20 MEQ/100 ML BAG IV SCH (08:00)
[2019-08-11] MEDS: Albuterol/Ipratropium NEB.SOL* Albuterol 2.5 MG/Ipratropium 0.5 MG 3 ML INH PRN (08:07)
[2019-08-11] MEDS: Mometasone/Formoter 200/5 MDI INH SCH ×2 (08:13→20:00)
[2019-08-11] MEDS ORDERED: Fluticasone-Salmeterol 250-50* DISKUS INH SCH (09:00)
[2019-08-11] MEDS: Potassium Chlor TAB* 20 MEQ TAB.ER PO SCH ×2 (09:33→21:07)
[2019-08-11] MEDS ORDERED: Levothyroxine TAB* 75 MCG TAB PO ONE (10:00)
--- NOTE | 2019-08-11 11:11 | PN ---
Subjective Date of Service: 08/11/19 - CC: weakness, found in new AF, RVR Interval History: Afib, RVR new. Rate controlled with Carizem gtt, getting 330 mg/24 hours. Pt sleeping, arousable, but not very engaged. Son and in room. Medications Active Medications: Albuterol/Ipratropium (Duoneb (Albuterol 2.5 Mg/Ipratropium 0.5 Mg)) 1 neb INH Q6H PRN PRN Reason: SOB/WHEEZING Last Admin: 08/11/19 08:07 Dose: 1 neb Ceftriaxone Sodium 1 gm/ (Sodium Chloride) 50 mls @ 100 mls/hr IVPB Q24H TERRANCE Last Admin: 08/10/19 17:21 Dose: 100 mls/hr Diltiazem/Dextrose (Cardizem Iv D5w Bag* Premix) 125 mg in 125 mls @ 15 mls/hr IV PER RATE [facility]; Protocol Last Admin: 08/11/19 07:48 Dose: 15 mls/hr Levothyroxine Sodium (Synthroid Tab*) 75 mcg PO DAILY@0600 [facility] Mometasone Furoate/Formoterol Fumar (Dulera 200/5 Mdi*) 2 puff INH BID [facility] Last Admin: 08/11/19 08:13 Dose: Not Given Potassium Chloride (Klor Con Er Tab*) 20 meq PO BID [facility] Last Admin: 08/11/19 09:33 Dose: 20 meq Objective Vital Signs: Temp Pulse Resp BP Pulse Ox 98.2 F 99 16 123/59 100 08/11/19 04:10 08/11/19 08:08 08/11/19 08:08 08/11/19 06:32 08/11/19 08:08 Oxygen Devices in Use Now: Nasal Cannula Appearance: Elderly female lying 30 degrees. Sleepy, fatigued appearing. Eyes: No Scleral Icterus, PERRLA Ears/Nose/Mouth/Throat: Mucous Membranes Moist Neck: Trachea Midline - clear anteriorly, laterally Respiratory: - - clear anteriorly and laterally Cardiovascular: RRR Abdominal: - - flat, normal BS Extremities: No Edema Skin: No Rash or Ulcers Neurological: - - sleepy, arousable. Falls asleep right after awakening. Lines/Tubes/Other Access: Clean, Dry and Intact Peripheral IV Laboratory Results: 08/11/19 04:48 08/11/19 04:48 INR (Anticoag Therapy) 1.36 (0.82-1.09) H 08/09/19 11:22 Total Bilirubin 1.70 mg/dL (0.2-1.0) H 08/11/19 04:48 AST 16 U/L (13-39) 08/11/19 04:48 ALT 25 U/L (7-52) 08/11/19 04:48 Alkaline Phosphatase 91 U/L (34-104) 08/11/19 04:48 B-Natriuretic Peptide 410 pg/mL (<=100) H 08/09/19 11:22 Total Protein 5.4 g/dL (6.4-8.9) L 08/11/19 04:48 Albumin 3.2 g/dL (3.2-5.2) 08/11/19 04:48 Globulin 2.2 g/dL (2-4) 08/11/19 04:48 Albumin/Globulin Ratio 1.5 (1-3) 08/11/19 04:48 TSH 0.30 mcIU/mL (0.34-5.60) L 08/10/19 10:31 08/09/19 08/10/19 08/11/19 11:22 10:31 04:48 Troponin I 0.04 H* 0.05 H* 0.08 H* Diagnostic Imaging: *[facility]* [place] [address] Fax #: [phone] Transthoracic Echocardiogram Patient: Meghna Hassan : 1940 Study Date: 08/10/2019 Age: 79 Gender: F HR: 132 bpm Height: 63 in /160 cm BSA: 1.71 m^2 Weight: 149.7 lb /68 kg BMI: 26.6 kg/m^2 *[employer] Brusher: * Ignacia Ramirez [facility] *Referring Physician: * eHlen Wiseman *Reading Physician: * Ladi Edgar MD Indications: SOB. History: Asthma. Risk factors: Hypertension. Diabetes mellitus. Conclusions Summary: - Left ventricle: Systolic function is at the lower limits of normal. The estimated ejection fraction is 50-55%. LBBB and tachycardia. Difficult to make and overall estimate but left ventricle ejection fraction appears preserved. - Mitral valve: There is mild regurgitation. - Tricuspid valve: There is moderate regurgitation. - Pulmonary arteries: Systolic pressure is moderately increased. - C/t 12/26/2018, stable. PHTN was mild then. Study data: Transthoracic echocardiogram. Procedure: Transthoracic echocardiography was performed. Image quality was good. Complete 2D, spectral Doppler, and color flow Doppler. Location: Bedside. Patient status: Inpatient. Patient room number: 414-02. Rhythm: Atrial fibrillation. This report is only to be considered final once signed by the Provider(s) as displayed in the "<Electronically Signed by >" field (s). Absence of a signature indicates the report is in a draft status and still needs to be finalized. In the event this document was created by someone other than the signing Provider, the individual initiating the document will be listed in the "Entered by:" or "Dictated by:" martinez. EKG Data: Afib, controlled rate to NSR. Assessment/Plan Afib RVR, preserved EF. Now spont. CV to NSR. Afib in the setting of acute respiratory disorder, on antibiotics and inhalers. Chronic history of myeloproliferative disorder. AFIB: Trial of Cardizem, oral, get off gtt today. Addendum 5 PM: Staying in NSR, off dilt gtt VS: NO VS in the computer found since 8 AM, will have updated in computer record, review. Tentative plan: Cardizem 120 mg/day unless BP high. For rate control based on gtt, would likely need 240 mg or 300 mg if pt goes back in afib. long term care phlebotomist: options of stronger antiarrhythmics such as Sotalol or Multaq or Amiodarone as the patient can't be on anticoagulants with hematological issues, low platelets. Will discuss options with [facility] in AM. Troponin bump: Could be demand ischemia, large vessel disease, just afib and RVR No plans to cath. no plans to stress and not a candidate for intervention. Medical management. Vital Signs - 12 hr Temp Pulse Resp BP Pulse Ox 08/11/19 16:08 98.6 F 73 24 115/52 98 08/11/19 14:33 115/47 08/11/19 13:32 122/55 08/11/19 12:32 122/49 08/11/19 11:33 125/48 08/11/19 11:31 98.2 F 79 28 98 08/11/19 10:33 110/44 08/11/19 09:33 121/52 08/11/19 08:32 122/62 08/11/19 08:08 99 16 100 08/11/19 08:00 28 08/11/19 07:57 98.2 F 85 28 100 08/11/19 07:44 123/79 08/11/19 07:32 119/60 08/11/19 06:32 123/59 08/11/19 05:32 122/59
[2019-08-11 11:37] LABS: Troponin I 0.07 ng/mL (<0.03)
[2019-08-11] MEDS ORDERED: Diltiazem CD CAP* 120 MG PO ONE (13:16)
[2019-08-11] MEDS: cefTRIAXone(*) 1 GM in NS 0.9% 50 ML* 50 ML IVPB SCH (17:41)
[2019-08-12] MEDS ORDERED: Levothyroxine TAB* 75 MCG TAB PO SCH (06:00)
[2019-08-12] MEDS: Potassium Chlor TAB* 20 MEQ TAB.ER PO SCH ×2 (08:56→21:05)
[2019-08-12] MEDS: Mometasone/Formoter 200/5 MDI INH SCH ×2 (09:14→20:53)
--- NOTE | 2019-08-12 09:32 | PN ---
Subjective Date of Service: 08/12/19 Interval History: Switched off dilt drip to PO diltiazem yesterday. Noted to have low TSH, will decrease Synthroid dose. Patient seems weak and tired on interview. Partner at bedside mentions she wasn' t like this before she got sick last week, but she's been like this throughout admission. Patient only complains that she is wheezing. She used steroids in the past for asthma exacerbation but is declining them now. Denies SOB, chills, abd pain, n/v/c/d. Objective Active Medications: Albuterol/Ipratropium (Duoneb (Albuterol 2.5 Mg/Ipratropium 0.5 Mg)) 1 neb INH Q6H PRN PRN Reason: SOB/WHEEZING Last Admin: 08/11/19 08:07 Dose: 1 neb Diltiazem HCl (Cardizem Cd Cap*) 120 mg PO DAILY [facility] Last Admin: 08/12/19 10:04 Dose: 120 mg Guaifenesin (Robitussin 100 Mg/5ml Liq) 5 ml PO Q6H PRN PRN Reason: COUGH Ceftriaxone Sodium 1 gm/ (Sodium Chloride) 50 mls @ 100 mls/hr IVPB Q24H [facility] Last Admin: 08/12/19 17:16 Dose: 100 mls/hr Lactated Ringer's (Lactated Ringers 1000 Ml Bag*) 1,000 mls @ 100 mls/hr IV ONCE ONE Stop: 08/13/19 03:36 Levothyroxine Sodium (Synthroid Tab*) 25 mcg PO DAILY@0600 [facility] Mometasone Furoate/Formoterol Fumar (Dulera 200/5 Mdi*) 2 puff INH BID [facility] Last Admin: 08/12/19 09:14 Dose: 2 puff Potassium Chloride (Klor Con Er Tab*) 20 meq PO BID [facility] Last Admin: 08/12/19 08:56 Dose: 20 meq Prednisone (Deltasone 20 Mg Tab) 40 mg PO DAILY [facility] Last Admin: 08/12/19 17:40 Dose: 40 mg Vital Signs - 8 hr 08/12/19 08/12/19 03:15 07:45 Temperature 98.6 F 97.4 F Pulse Rate 85 87 Respiratory 18 20 Rate Blood Pressure 110/45 132/57 (mmHg) O2 Sat by Pulse 99 99 Oximetry Oxygen Devices in Use Now: Nasal Cannula Appearance: tired, frail-appearing woman in NAD, speaking in full sentences without increased WOB Eyes: No Scleral Icterus Ears/Nose/Mouth/Throat: Clear Oropharnyx, Mucous Membranes Moist Neck: NL Appearance and Movements; NL JVP, Trachea Midline Respiratory: - - mild expiratory wheeze diffusely Cardiovascular: NL Sounds; No Murmurs; No JVD, RRR Abdominal: NL Sounds; No Tenderness; No Distention, No Hepatosplenomegaly Extremities: No Edema Skin: No Rash or Ulcers Neurological: - - sleepy but arousable, no slurred speech, AOx3 Result Diagrams: 08/11/19 04:48 08/12/19 10:28 Microbiology and Other Data: Microbiology 08/09/19 11:52 Aerobic Blood Culture - Preliminary Blood Venous No Growth Day 2 Anaerobic Blood Culture - Preliminary No Growth Day 2 08/09/19 11:22 Aerobic Blood Culture - Preliminary Blood Venous No Growth Day 2 Anaerobic Blood Culture - Preliminary No Growth Day 2 08/09/19 20:25 Transfusion Reaction Culture - Preliminary Blood Bag No Growth Day 2 Transfusion Reaction Gram Stain - Final Assess/Plan/Problems-Billing Assessment: 79W with myeloproliferative disease, asthma, HTN, presents with wheezing, dyspnea, and cough. Likely asthma exacerbation. Found without fevers, leukocytosis, or concerning findings on CXR or Chest CT. Pt was recently on high dose steroids for over 1 month (30-40mg) and appears this was suddenly stopped a few days prior to presentation. Received 2 blood transfusion (for Hgb 7.7) and ceftriaxone. After blood transfusion, patient then developed fevers and tachycardia, concerning for transfusion reaction. Her atenolol was held after admission, and she eventually developed afib with RVR and required diltiazem drip. Her levothyroxine was continued, but she is noted to have iatrogenic hyperthyroidism for the last few months. Her asthma inhaler was held until day 3 of admission. She has persistent wheeze but has not been receiving nebs as ordered. She was recently on steroids but not started on them this admission. - Patient Problems (1) Weakness Comment: Likely from multiple acute medical issues. Also with recent discontinuation of high-dose steroids (30-40mg of prednisone for > 1 month). - monitor response to giving steroids for asthma - pt dehydrated - starting IVF - PT ordered (2) Afib Comment: New this admission, with RVR, in setting of asthma exacerbation, possible respiratory infection, transfusion reaction, holding home beta-kelly , and iatrogenic hyperthyroidism. - converted with dilt drip, now on PO - appreciate cardiology (3) Asthma Comment: Presenting with exacerbation after recently stopping high dose steroids (on these for myeloproliferative disorder). - pt reporting significant wheeze but only given nebs twice in 4 days - pls give nebs - start prednisone (08/12 - ) - cont home Advair formulary substitute bid (4) Pneumonia Comment: Unclear if pt carries this diagnosis. Chest CT reviewed with radiologist and without consolidation. No fever (until transfusion reaction), no leukocytosis. Cultures negative. - f/u urine antigens and CRP - cont CTX for now (08/09 - ) (5) HTN (hypertension) Comment: - holding home valsartan in setting of acute illness, BPs at goal (6) Hypothyroid Comment: Now with iatrogenic hyperthyroidism, with afib and RVR this admission. - decrease levothyroxine to 25mcg daily, as TSH low (and goal is likely slightly above normal range for this octogenarian) - likely doesn't need to be on this medication at all - f/u repeat TSH in mid- September and titrate accordingly (7) MDS (myelodysplastic syndrome) Comment: - management per Onc (8) DVT prophylaxis Comment: - SCDs given low platelets (9) DNR (do not resuscitate) Current Visit: No Status: Acute
[2019-08-12] MEDS: Diltiazem CD CAP* 120 MG PO SCH (10:04)
[2019-08-12 10:50] LABS: BUN/Creatinine Ratio 23.7 (8-20); Calcium 8.7 mg/dL (8.6-10.3); EGFR African American 47.1 (>60); Magnesium 1.8 mg/dL (1.9-2.7); Potassium 4.2 mmol/L (3.5-5.0)
[2019-08-12 11:53] LABS: Free T4 1.34 ng/dL (0.61-1.12)
--- NOTE | 2019-08-12 12:23 | PN ---
Subjective Date of Service: 08/12/19 - CC: SOB, afib RVR transient Interval History: Afib, RVR new. Rate controlled with Carizem gtt initially, then converted to NSR spontaneously. Pt sleeping, arousable, improved from yesterday, but still very had to keep awake, have a conversation with. Significant other in the room. He confirmed pre admission phlegm, respiratory symptoms in the setting of asthma , these have improved since admission. It sounds like she is not usually this lethargic. Medications Active Medications: Albuterol/Ipratropium (Duoneb (Albuterol 2.5 Mg/Ipratropium 0.5 Mg)) 1 neb INH Q6H PRN PRN Reason: SOB/WHEEZING Last Admin: 08/11/19 08:07 Dose: 1 neb Diltiazem HCl (Cardizem Cd Cap*) 120 mg PO DAILY [facility] Last Admin: 08/12/19 10:04 Dose: 120 mg Ceftriaxone Sodium 1 gm/ (Sodium Chloride) 50 mls @ 100 mls/hr IVPB Q24H [facility] Last Admin: 08/11/19 17:41 Dose: 100 mls/hr Levothyroxine Sodium (Synthroid Tab*) 25 mcg PO DAILY@0600 [facility] Mometasone Furoate/Formoterol Fumar (Dulera 200/5 Mdi*) 2 puff INH BID [facility] Last Admin: 08/12/19 09:14 Dose: 2 puff Potassium Chloride (Klor Con Er Tab*) 20 meq PO BID [facility] Last Admin: 08/12/19 08:56 Dose: 20 meq Objective Vital Signs: Temp Pulse Resp BP Pulse Ox 98.7 F 93 20 127/58 91 08/12/19 11:12 08/12/19 11:12 08/12/19 11:12 08/12/19 11:12 08/12/19 11:12 Vital Signs - 12 hr Temp Pulse Resp BP Pulse Ox 08/12/19 11:12 98.7 F 93 20 127/58 91 08/12/19 08:00 22 08/12/19 07:45 97.4 F 87 20 132/57 99 08/12/19 03:15 98.6 F 85 18 110/45 99 Oxygen Devices in Use Now: Nasal Cannula Appearance: Elderly female lying 30 degrees. Sleepy, fatigued appearing. Awakes, appropriate, follows commands but have to ask several times, speech is articulate. Eyes: No Scleral Icterus Ears/Nose/Mouth/Throat: Mucous Membranes Moist Neck: Trachea Midline - clear anteriorly, laterally Respiratory: - - Wheezing anteriorly and laterally, improved with posterior exam after deep breaths. Cardiovascular: RRR Abdominal: - - flat, normal BS Extremities: No Edema Skin: No Rash or Ulcers Neurological: - - sleepy, arousable. Falls asleep right after awakening. Lines/Tubes/Other Access: Clean, Dry and Intact Peripheral IV Laboratory Results: 08/11/19 04:48 08/12/19 10:28 INR (Anticoag Therapy) 1.36 (0.82-1.09) H 08/09/19 11:22 Total Bilirubin 1.70 mg/dL (0.2-1.0) H 08/11/19 04:48 AST 16 U/L (13-39) 08/11/19 04:48 ALT 25 U/L (7-52) 08/11/19 04:48 Alkaline Phosphatase 91 U/L (34-104) 08/11/19 04:48 B-Natriuretic Peptide 410 pg/mL (<=100) H 08/09/19 11:22 Total Protein 5.4 g/dL (6.4-8.9) L 08/11/19 04:48 Albumin 3.2 g/dL (3.2-5.2) 08/11/19 04:48 Globulin 2.2 g/dL (2-4) 08/11/19 04:48 Albumin/Globulin Ratio 1.5 (1-3) 08/11/19 04:48 TSH 0.30 mcIU/mL (0.34-5.60) L 08/10/19 10:31 08/09/19 08/10/19 08/11/19 11:22 10:31 04:48 Troponin I 0.04 H* 0.05 H* 0.08 H* 08/11/19 10:53 Troponin I 0.07 H* FT4 elevated at 1.34 08/12/2019 Diagnostic Imaging: *[facility]* [place] [address] Fax #: [phone] Transthoracic Echocardiogram Patient: Meghna Hassan : 1940 Study Date: 08/10/2019 Age: 79 Gender: F HR: 132 bpm Height: 63 in /160 cm BSA: 1.71 m^2 Weight: 149.7 lb /68 kg BMI: 26.6 kg/m^2 *Retail Loan Originator Assistant: * Ignacia Ramirez RDCS *Referring Physician: * Helen WisemanReading Physician: * Ladi Edgar MD Indications: SOB. History: Asthma. Risk factors: Hypertension. Diabetes mellitus. Conclusions Summary: - Left ventricle: Systolic function is at the lower limits of normal. The estimated ejection fraction is 50-55%. LBBB and tachycardia. Difficult to make and overall estimate but left ventricle ejection fraction appears preserved. - Mitral valve: There is mild regurgitation. - Tricuspid valve: There is moderate regurgitation. - Pulmonary arteries: Systolic pressure is moderately increased. - C/t 12/26/2018, stable. PHTN was mild then. Study data: Transthoracic echocardiogram. Procedure: Transthoracic echocardiography was performed. Image quality was good. Complete 2D, spectral Doppler, and color flow Doppler. Location: Bedside. Patient status: Inpatient. Patient room number: 414-02. Rhythm: Atrial fibrillation. This report is only to be considered final once signed by the Provider(s) as displayed in the "<Electronically Signed by >" field (s). Absence of a signature indicates the report is in a draft status and still needs to be finalized. In the event this document was created by someone other than the signing Provider, the individual initiating the document will be listed in the "Entered by:" or "Dictated by:" martinez. EKG Data: Afib, controlled rate to NSR. 08/12/2019 Tele: NSR, 90's. ECG 08/11/2019: NSR Assessment/Plan Afib RVR, preserved EF. Spont. CV to NSR. Afib in the setting of acute respiratory disorder, hx asthma, on antibiotics and inhalers. Chronic history of myeloproliferative disorder, very low platelets, precludes use of abx. AFIB: BP stable and maintaining NSR on Czem 120 mg/day, continue for now. Normal EF on echo. At risk for recurrence. Triggers of respiratory illness and elevated FT4 being addressed now (thyroid replacement lowered). termite helper: options of stronger antiarrhythmics such as Sotalol or Multaq or Amiodarone as the patient can't be on anticoagulants with hematological issues, low platelets. Should f/u with Dr Edgar in 1-4 weeks with ECG. Troponin bump: Could be demand ischemia, large vessel disease, just afib and RVR No plans to cath. no plans to stress and not a candidate for intervention. Medical management. Respiratory: On bed rest, will get OOB to chair, PT, needs to increase activity. 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 No focal findings, seems generalized depression. Ensure no hypercarbia, hypoxemia or other metabolic etiology (Vit D, Lyme....). MDS: Sees yazmin.
[2019-08-12] MEDS ORDERED: Magnesium Sulfate 2 GM IV* 2 GM/50 ML BAG IVPB ONE (13:10)
[2019-08-12] MEDS ORDERED: guaiFENesin 100 mg/5 ml LIQ unit dose cup PO PRN (13:13)
[2019-08-12] MEDS: cefTRIAXone(*) 1 GM in NS 0.9% 50 ML* 50 ML IVPB SCH (17:16)
[2019-08-12] MEDS ORDERED: Lactated Ringers 1000 ML Bag* 1,000 ML IV ONE (17:37)
[2019-08-12] MEDS: Albuterol/Ipratropium NEB.SOL* Albuterol 2.5 MG/Ipratropium 0.5 MG 3 ML INH PRN (20:53)
[2019-08-13] MEDS: Levothyroxine TAB* 25 MCG TAB PO SCH (05:27)
[2019-08-13 06:53] LABS: BUN/Creatinine Ratio 28.1 (8-20); C Reactive Protein 242.53 mg/L (<8.01); Calcium 8.4 mg/dL (8.6-10.3); EGFR African American 55.4 (>60); EGFR Non-African American 45.7 (>60); Magnesium 2.1 mg/dL (1.9-2.7); Potassium 4.6 mmol/L (3.5-5.0)
[2019-08-13 06:57] LABS: Hematocrit 18 % (35-47); Hemoglobin 6.5 g/dL (12.0-16.0); Mean Corpuscular HGB Conc 36 g/dL (31-36); Mean Corpuscular Hemoglobin 31 pg (27-31); Mean Corpuscular Volume 86 fL (80-97); Platelet Count 7 10^3/uL (150-450); Red Blood Count 2.14 10^6 /uL (3.70-4.87); Red Cell Distribution Width 16 % (10-15); White Blood Count 2.6 10^3/uL (3.5-10.8)
[2019-08-13] MEDS: Albuterol/Ipratropium NEB.SOL* Albuterol 2.5 MG/Ipratropium 0.5 MG 3 ML INH PRN (07:07)
[2019-08-13] MEDS: Mometasone/Formoter 200/5 MDI INH SCH ×2 (07:22→19:56)
[2019-08-13] MEDS: Potassium Chlor TAB* 20 MEQ TAB.ER PO SCH ×2 (08:47→20:36)
[2019-08-13] MEDS: Diltiazem CD CAP* 120 MG PO SCH (08:47)
[2019-08-13 08:56] LABS: ABS Lymphocytes 0.3 10^3/ul (1.0-4.8); ABS Monocytes 0.1 10^3/ul (0-0.8); ABS Neutrophils 2.2 10^3/ul (1.5-7.7); Lymphocyte % 11.3 %; Nucleated Red Blood Cells % 0.2
[2019-08-13 09:00] LABS: Immature Retic Fraction 0.33
[2019-08-13] MEDS ORDERED: RUXOLITINIB 10 MG PO SCH (09:00)
[2019-08-13 09:02] LABS: Corrected Retic Count 0.4 % (0.5-1.5); Hematocrit for Retic CNT 18 % (35-47); RBC Retic Count 2.14 10^6/uL (3.70-4.87)
--- NOTE | 2019-08-13 09:03 | PN ---
Progress Note - Progress Note Date of Service: 08/13/19 SOAP: Subjective: []She feels better then coming in to hospital. Was very "out of it" for first several days. She is SOB but no different then baseline. Has been eating. Did not feel fast HR before and heart feels fine now. Not getting out of bed. No fever or chills Albuterol/Ipratropium (Duoneb (Albuterol 2.5 Mg/Ipratropium 0.5 Mg)) 1 neb INH Q6H PRN PRN Reason: SOB/WHEEZING Last Admin: 08/13/19 07:07 Dose: 1 neb Diltiazem HCl (Cardizem Cd Cap*) 120 mg PO DAILY [facility] Last Admin: 08/13/19 08:47 Dose: 120 mg Guaifenesin (Robitussin 100 Mg/5ml Liq) 5 ml PO Q6H PRN PRN Reason: COUGH Ceftriaxone Sodium 1 gm/ (Sodium Chloride) 50 mls @ 100 mls/hr IVPB Q24H [facility] Last Admin: 08/12/19 17:16 Dose: 100 mls/hr Levothyroxine Sodium (Synthroid Tab*) 25 mcg PO DAILY@0600 [facility] Last Admin: 08/13/19 05:27 Dose: 25 mcg Mometasone Furoate/Formoterol Fumar (Dulera 200/5 Mdi*) 2 puff INH BID [facility] Last Admin: 08/13/19 07:22 Dose: 2 puff Potassium Chloride (Klor Con Er Tab*) 20 meq PO BID [facility] Last Admin: 08/13/19 08:47 Dose: 20 meq Prednisone (Deltasone 20 Mg Tab) 40 mg PO DAILY [facility] Last Admin: 08/13/19 08:47 Dose: 40 mg Ruxolitinib (Jakafi (Nf)) 5 mg PO BID [facility] Objective: [] Vital Signs Temp Pulse Resp BP Pulse Ox 97.5 F 72 22 130/57 98 08/13/19 07:17 08/13/19 07:17 08/13/19 07:17 08/13/19 07:17 08/13/19 07:17 Fever decreased 99 - 101.5 on admission to 97-98 now. HEENT pale but no oral lesions Wheezing both sides, some crackles. RRR s1S2 80s +BS NT ND, cannot clearly feels spleent Tr edema and ext warm Neuro AAOx3, gross non focal. 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 Has been managed recently on Jakafi with paradoxical increase in blood counts. Admission for pneumonia, rapid a-fib. Now sinus rhythm and improving. However, progressive pancytopenia. 1. Pancytopenia. She does better on Jakafi, likely by decreasing splenic sequestration. - Start Jakafi 10 mg po bid, she will bring in from home - Transfuse 1 U PRBC per day, goal of Hgb < 8.0 given cardiac disease. - Suspect fevers on 08/10 2nd to pneumonia. - No Tx platelets unless active bleeding. 2.New onset SVT, afib w RVR - currently SR and rate controlled. - followed by cardiology - no anticoagulation - maintain K and Mg 3. Asthma/pnemonia - on Ceftriaxone - Wheezing today, check BNP - continue Dulera and Prednisone. 4. Hypothyriod. On levothyroxine. 5. To chair today, PT once counts improve 6. DNR
[2019-08-13] MEDS ORDERED: JAKAFI 5 MG PO SCH ×2 (11:30→21:00)
[2019-08-13] MEDS ORDERED: DOXYcycline IV* 100 MG in NS 0.9% 250 ML* 250 ML IVPB SCH (14:00)
[2019-08-13 14:23] LABS: Hematocrit 25 % (35-47); Hemoglobin 8.7 g/dL (12.0-16.0); Mean Corpuscular HGB Conc 35 g/dL (31-36); Mean Corpuscular Hemoglobin 30 pg (27-31); Mean Corpuscular Volume 88 fL (80-97); Mean Platelet Volume 8.5 fL (7.4-10.4); Red Blood Count 2.86 10^6 /uL (3.70-4.87); Red Cell Distribution Width 16 % (10-15); White Blood Count 4.4 10^3/uL (3.5-10.8)
[2019-08-13 14:25] LABS: Platelet Count 10 10^3/uL (150-450)
[2019-08-13 14:57] LABS: ABS Lymphocytes 0.4 10^3/ul (1.0-4.8); ABS Monocytes 0.1 10^3/ul (0-0.8); ABS Neutrophils 3.9 10^3/ul (1.5-7.7); Lymphocyte % 8.8 %; Nucleated Red Blood Cells % 0.4
[2019-08-13] MEDS: Levofloxacin 750 MG IVPREMIX(* 750 MG/150 ML BAG IVPB SCH (15:41)
--- NOTE | 2019-08-13 16:51 | PN ---
Subjective Date of Service: 08/13/19 Interval History: Patient felt generally better in terms of breathing, able to wean O2 down to 1L this morning when I saw her. She denied dizziness, lightheadedness, chest pain. No fever, dysuria. Objective Active Medications: Albuterol/Ipratropium (Duoneb (Albuterol 2.5 Mg/Ipratropium 0.5 Mg)) 1 neb INH Q6H PRN PRN Reason: SOB/WHEEZING Last Admin: 08/13/19 07:07 Dose: 1 neb Diltiazem HCl (Cardizem Cd Cap*) 120 mg PO DAILY [facility] Last Admin: 08/13/19 08:47 Dose: 120 mg Guaifenesin (Robitussin 100 Mg/5ml Liq) 5 ml PO Q6H PRN PRN Reason: COUGH Levofloxacin/Dextrose (Levaquin 750 Mg Ivpremix(*)) 750 mg in 150 mls @ 100 mls /hr IVPB Q48H [facility]; Protocol Stop: 08/17/19 16:59 Last Admin: 08/13/19 15:41 Dose: 100 mls/hr Levothyroxine Sodium (Synthroid Tab*) 25 mcg PO DAILY@0600 [facility] Last Admin: 08/13/19 05:27 Dose: 25 mcg Mometasone Furoate/Formoterol Fumar (Dulera 200/5 Mdi*) 2 puff INH BID [facility] Last Admin: 08/13/19 07:22 Dose: 2 puff Potassium Chloride (Klor Con Er Tab*) 20 meq PO BID [facility] Last Admin: 08/13/19 08:47 Dose: 20 meq Prednisone (Deltasone 20 Mg Tab) 40 mg PO DAILY [facility] Last Admin: 08/13/19 08:47 Dose: 40 mg Ruxolitinib (Jakafi) 2 mg PO BID [facility] Vital Signs - 8 hr 08/13/19 11:10 Temperature 97.9 F Pulse Rate 74 Respiratory 16 Rate Blood Pressure 125/53 (mmHg) O2 Sat by Pulse 99 Oximetry Oxygen Devices in Use Now: Nasal Cannula, OxyMask Exam: Oxygen Devices in Use Now: Nasal Cannula 1l Appearance: tired, frail-appearing woman in NAD, speaking in full sentences without increased WOB Eyes: No Scleral Icterus Ears/Nose/Mouth/Throat: Clear Oropharnyx, Mucous Membranes Moist Neck: NL Appearance and Movements; NL JVP, Trachea Midline Respiratory: - - expiratory wheeze diffusely, right lower zone decreased air entry Cardiovascular: NL Sounds; No Murmurs; No JVD, RRR Abdominal: NL Sounds; No Tenderness; No Distention, No Hepatosplenomegaly Extremities: No Edema Skin: No Rash or Ulcers Neurological: no slurred speech, AOx3 Result Diagrams: 08/13/19 14:15 08/13/19 06:31 Microbiology and Other Data: Microbiology 08/09/19 11:52 Aerobic Blood Culture - Preliminary Blood Venous No Growth Day 2 Anaerobic Blood Culture - Preliminary No Growth Day 2 08/09/19 11:22 Aerobic Blood Culture - Preliminary Blood Venous No Growth Day 2 Anaerobic Blood Culture - Preliminary No Growth Day 2 08/09/19 20:25 Transfusion Reaction Culture - Preliminary Blood Bag No Growth Day 2 Transfusion Reaction Gram Stain - Final Diagnostic Imaging: CXR:right lower lung airspace opacity Assess/Plan/Problems-Billing Assessment: 79W with JAK2+ myeloproliferative disease with splenomegaly, asthma, HTN, presents with wheezing, dyspnea, and cough, initially treated for asthma exacerbation, now found to have elevated CRP, right lung opacity in CXR which consistent with pneumonia. Her hospital course complicated by Afib with RVR which controlled with Cardizem, iatrogenic hyperthyroidism for which levothyroixine dose was adjusted, and pancytopenia likely due to her blood disease with spleen sequestration. - Patient Problems (1) Pneumonia Current Visit: Yes Status: Acute Priority: High Code(s): J18.9 - PNEUMONIA , UNSPECIFIED ORGANISM SNOMED Code(s): 839811540 Comment: - initially the diagnosis was vague, now turns clear with opacities in right chest, and elevated CRP to 242 - urine antigen neg - convert to iv levofloxacin for better pseudomona coverage, dose adjusted based on kidney function - blood cs neg, trace sputum culture (2) Asthma Current Visit: Yes Status: Acute Code(s): J45.909 - UNSPECIFIED ASTHMA, UNCOMPLICATED SNOMED Code(s): 202206874 Comment: Presenting with exacerbation after recently stopping high dose steroids (on these for myeloproliferative disorder). - pt reporting significant wheeze but only given nebs twice in 4 days - pls give nebs - start prednisone (08/12 - ) - cont home Advair formulary substitute bid (3) Pancytopenia Current Visit: Yes Status: Acute Code(s): D61.818 - OTHER PANCYTOPENIA SNOMED Code(s): 578917449 Comment: - new today - appreciate Dr. Arevalo's recs. likely spleen sequestration with her underlying JAK2+ myeloproliferative disease - restart JAKAFI 10mg twice daily - transfuse 1U PRBC, target Hb 7, not for plt transfusion since no acitive bleeding - repeat cbc tomorrow (4) Afib Current Visit: Yes Status: Acute Code(s): I48.91 - UNSPECIFIED ATRIAL FIBRILLATION SNOMED Code(s): 05791288 Comment: New this admission, with RVR, in setting of asthma exacerbation, possible respiratory infection, transfusion reaction, holding home beta-kelly , and iatrogenic hyperthyroidism. - converted with dilt drip, now on PO - f/u with wet machine tender outpt (5) HTN (hypertension) Current Visit: Yes Status: Acute Code(s): I10 - ESSENTIAL (PRIMARY) HYPERTENSION SNOMED Code(s): 91264069 Comment: - holding home valsartan in setting of acute illness, BPs at goal (6) Weakness Current Visit: Yes Status: Acute Code(s): R53.1 - WEAKNESS SNOMED Code(s) : 77315454 Comment: Likely from multiple acute medical issues. Also with recent discontinuation of high-dose steroids (30-40mg of prednisone for > 1 month). - monitor response to giving steroids for asthma - PT ordered, sit out of bed daily (7) Hypothyroid Current Visit: Yes Status: Chronic Priority: Low Code(s): E03.9 - HYPOTHYROIDISM, UNSPECIFIED SNOMED Code(s): 25225444 Comment: Now with iatrogenic hyperthyroidism, with afib and RVR this admission. 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 Had fever, ? due to transfusion vs PNA. Now has clear infiltrate on CXR. Switched to levaquin for atypical and pseudomonal coverage. Will add aztreonam if not improving tomorrow. No MRSA culture positive, will hold off on vancomycin. Attestation: This service has been performed in part by a resident under the direction of a teaching physician.I, Joseph Whitfield, performed the service, or was physically present during the critical, or chirinos portions of the service, furnished by the resident. I participated in the management of the patient.
[2019-08-13] MEDS: Ruxolitinib (NF) 5 MG TABLET PO SCH (20:37)
[2019-08-14] MEDS: Levothyroxine TAB* 25 MCG TAB PO SCH (06:15)
[2019-08-14 06:17] LABS: Hematocrit 23 % (35-47); Hemoglobin 7.9 g/dL (12.0-16.0); Mean Corpuscular HGB Conc 35 g/dL (31-36); Mean Corpuscular Hemoglobin 31 pg (27-31); Mean Corpuscular Volume 87 fL (80-97); Mean Platelet Volume 10.2 fL (7.4-10.4); Platelet Count 7 10^3/uL (150-450); Red Blood Count 2.58 10^6 /uL (3.70-4.87); Red Cell Distribution Width 16 % (10-15); White Blood Count 3.8 10^3/uL (3.5-10.8)
[2019-08-14 06:31] LABS: BUN/Creatinine Ratio 33.6 (8-20); Calcium 8.5 mg/dL (8.6-10.3); EGFR African American 55.9 (>60); EGFR Non-African American 46.2 (>60)
[2019-08-14 06:34] LABS: Potassium 5.1 mmol/L (3.5-5.0)
[2019-08-14] MEDS: Potassium Chlor TAB* 20 MEQ TAB.ER PO SCH ×2 (07:18→20:35)
[2019-08-14] MEDS: Diltiazem CD CAP* 120 MG PO SCH (07:19)
[2019-08-14] MEDS: Ruxolitinib (NF) 5 MG TABLET PO SCH ×2 (07:19→20:36)
[2019-08-14] MEDS: Mometasone/Formoter 200/5 MDI INH SCH ×2 (07:54→19:24)
[2019-08-14 08:18] LABS: ABS Lymphocytes 0.6 10^3/ul (1.0-4.8); ABS Monocytes 0.1 10^3/ul (0-0.8); ABS Neutrophils 3.1 10^3/ul (1.5-7.7); Eosinophil % 0.1 %; Lymphocyte % 14.6 %; Nucleated Red Blood Cells % 0.3
--- NOTE | 2019-08-14 13:02 | PN ---
Progress Note - Progress Note Date of Service: 08/14/19 SOAP: Subjective: [Meghna reports feeling much better today. She was able to walk around the unit with a walker. Dyspnea is improving. No evidence of bleeding. ] Objective: [ Vital Signs: Temp Pulse Resp BP Pulse Ox 98.1 F 68 20 132/33 98 08/14/19 11:09 08/14/19 11:09 08/14/19 11:09 08/14/19 11:09 08/14/19 11:09 Albuterol/Ipratropium (Duoneb (Albuterol 2.5 Mg/Ipratropium 0.5 Mg)) 1 neb INH [id number] AWAKE [facility] Diltiazem HCl (Cardizem Cd Cap*) 120 mg PO DAILY [facility] Last Admin: 08/14/19 07:19 Dose: 120 mg Guaifenesin (Robitussin 100 Mg/5ml Liq) 5 ml PO Q6H PRN PRN Reason: COUGH Levofloxacin/Dextrose (Levaquin 750 Mg Ivpremix(*)) 750 mg in 150 mls @ 100 mls /hr IVPB Q48H [facility]; Protocol Stop: 08/17/19 16:59 Last Admin: 08/13/19 15:41 Dose: 100 mls/hr Levothyroxine Sodium (Synthroid Tab*) 25 mcg PO DAILY@0600 [facility] Last Admin: 08/14/19 06:15 Dose: 25 mcg Mometasone Furoate/Formoterol Fumar (Dulera 200/5 Mdi*) 2 puff INH BID [facility] Last Admin: 08/14/19 07:54 Dose: 2 puff Potassium Chloride (Klor Con Er Tab*) 20 meq PO BID [facility] Last Admin: 08/14/19 07:18 Dose: 20 meq Prednisone (Deltasone 20 Mg Tab) 40 mg PO DAILY [facility] Last Admin: 08/14/19 07:18 Dose: 40 mg Ruxolitinib (Jakafi) 10 mg PO BID [facility] Last Admin: 08/14/19 07:19 Dose: 10 mg Laboratory Results - last 24 hr 08/13/19 08/13/19 08/13/19 06:26 08:58 14:15 WBC 4.4 RBC 2.86 L Hgb 8.7 L Hct 25 L MCV 88 MCH 30 MCHC 35 RDW 16 H Plt Count 10 L* MPV 8.5 Neut % (Auto) 87.6 Lymph % (Auto) 8.8 [place] % (Auto) 3.0 Eos % (Auto) 0.0 Baso % (Auto) 0.6 Absolute Neuts (auto) 3.9 Absolute Lymphs (auto) 0.4 L Absolute Monos (auto) 0.1 Absolute Eos (auto) 0.0 Absolute Basos (auto) 0.0 Absolute Nucleated RBC 0.0 Immature Gran % 10.0 H Neutrophils % 78.0 Band Neutrophils % 5.0 Lymphocytes % 8.0 Reactive Lymphs % Monocytes % 2.0 Basophils % 2.0 Metamyelocytes % 1.0 Myelocytes % 3.0 H Promyelocytes % 1.0 Blast Cells % Nucleated RBC % 0.4 Nucleated RBCs/100 WBC Platelet Morphology Normal RBC Morphology Normal Anisocytosis Hem Pathologist Commnt Sodium Potassium Chloride Carbon Dioxide Anion Gap BUN Creatinine Est GFR ( Amer) Est GFR (Non-Af Amer) BUN/Creatinine Ratio Glucose Calcium B-Natriuretic Peptide 71 Blood Type O Positive Antibody Screen Negative Crossmatch See Detail 08/14/19 08/14/19 05:39 05:39 WBC 3.8 RBC 2.58 L Hgb 7.9 L Hct 23 L MCV 87 MCH 31 MCHC 35 RDW 16 H Plt Count 7 L* MPV 10.2 Neut % (Auto) 81.1 Lymph % (Auto) 14.6 [place] % (Auto) 3.4 Eos % (Auto) 0.1 Baso % (Auto) 0.8 Absolute Neuts (auto) 3.1 Absolute Lymphs (auto) 0.6 L Absolute Monos (auto) 0.1 Absolute Eos (auto) 0.0 Absolute Basos (auto) 0.0 Absolute Nucleated RBC 0.0 Immature Gran % 4.0 Neutrophils % 75.0 Band Neutrophils % Lymphocytes % 12.0 Reactive Lymphs % 2.0 Monocytes % 5.0 Basophils % Metamyelocytes % 2.0 Myelocytes % 2.0 H Promyelocytes % Blast Cells % 2.0 H* Nucleated RBC % 0.3 Nucleated RBCs/100 WBC 1.0 H Platelet Morphology Normal RBC Morphology Not Reportable Anisocytosis 1+ Hem Pathologist Commnt Sodium 134 L Potassium 5.1 H Chloride 105 Carbon Dioxide 22 Anion Gap 7 BUN 38 H Creatinine 1.13 H Est GFR ( Amer) 55.9 Est GFR (Non-Af Amer) 46.2 BUN/Creatinine Ratio 33.6 H Glucose 167 H Calcium 8.5 L B-Natriuretic Peptide Blood Type Antibody Screen Crossmatch Exam: Gen: chronically ill appearing 79 yo female in NAD HEENT: few petechiae on soft palate, no thrush or oral lesions CV: RRR, no m/r/g Resp: reduced breath sounds but no w/c/r Abd: soft, nonTTP, splenomegaly Ext: trace edema] Assessment: 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 Has been managed recently on Jakafi with paradoxical increase in blood counts. Admission for pneumonia, rapid a-fib. She has had progressive pancytopenia off of Jakafi this hospitalization. Clinically improving. 1. Pancytopenia. - resumed Jakafi 10 mg po bid, 1st dose 08/13 evening - Transfuse PRBCs for Hgb < 8.0 given cardiac disease - avoid transfusing platelets unless she begins to bleed 2. Atrial fibrillation with RVR - currently SR and rate controlled. - followed by cardiology - not a candidate for anticoagulation due to chronic thrombcytopenia - maintain K and Mg 3. Pneumonia with acute asthma exacerbation - cont abx - continue Dulera and Prednisone. 4. Hypothyriodism - slightly hyperthyroid state, levothyroxine adjusted by medical team 6. DNR ] Dispo: oncology team will cont to follow closely. DC planning per medicine team.
[2019-08-14] MEDS: Albuterol/Ipratropium NEB.SOL* Albuterol 2.5 MG/Ipratropium 0.5 MG 3 ML INH SCH ×2 (15:40→19:24)
--- NOTE | 2019-08-14 17:42 | PN ---
Subjective Date of Service: 08/14/19 Interval History: Meghna feels much improved today. She took off O2 without SOB, she had a shower this morning, and she felt refreshed. She walked with physical therapist this morning, she is able to use R/W and amb with min A for 70'. Her partner was present this morning during conversation, they are going to hire a helper at home, and they am getting a hospital bed at home as well. Objective Active Medications: Albuterol/Ipratropium (Duoneb (Albuterol 2.5 Mg/Ipratropium 0.5 Mg)) 1 neb INH [id number] AWAKE [facility] Last Admin: 08/14/19 15:40 Dose: Not Given Diltiazem HCl (Cardizem Cd Cap*) 120 mg PO DAILY [facility] Last Admin: 08/14/19 07:19 Dose: 120 mg Guaifenesin (Robitussin 100 Mg/5ml Liq) 5 ml PO Q6H PRN PRN Reason: COUGH Levofloxacin/Dextrose (Levaquin 750 Mg Ivpremix(*)) 750 mg in 150 mls @ 100 mls /hr IVPB Q48H [facility]; Protocol Stop: 08/17/19 16:59 Last Admin: 08/13/19 15:41 Dose: 100 mls/hr Levothyroxine Sodium (Synthroid Tab*) 25 mcg PO DAILY@0600 [facility] Last Admin: 08/14/19 06:15 Dose: 25 mcg Mometasone Furoate/Formoterol Fumar (Dulera 200/5 Mdi*) 2 puff INH BID [facility] Last Admin: 08/14/19 07:54 Dose: 2 puff Potassium Chloride (Klor Con Er Tab*) 20 meq PO BID [facility] Last Admin: 08/14/19 07:18 Dose: 20 meq Prednisone (Deltasone 20 Mg Tab) 40 mg PO DAILY [facility] Last Admin: 08/14/19 07:18 Dose: 40 mg Ruxolitinib (Jakafi) 10 mg PO BID [facility] Last Admin: 08/14/19 07:19 Dose: 10 mg Vital Signs - 8 hr 08/14/19 08/14/19 11:09 15:15 Temperature 98.1 F 97.9 F Pulse Rate 68 69 Respiratory 20 20 Rate Blood Pressure 132/33 114/48 (mmHg) O2 Sat by Pulse 98 98 Oximetry Oxygen Devices in Use Now: Nasal Cannula, OxyMask Exam: Appearance: tired, frail-appearing woman in NAD, speaking in full sentences without increased WOB Eyes: No Scleral Icterus Ears/Nose/Mouth/Throat: Clear Oropharnyx, Mucous Membranes Moist Neck: NL Appearance and Movements; NL JVP, Trachea Midline Respiratory: - - expiratory wheeze occ, right lower zone decreased air entry Cardiovascular: NL Sounds; No Murmurs; No JVD, RRR Abdominal: NL Sounds; No Tenderness; No Distention, No Hepatosplenomegaly Extremities: No Edema Skin: No Rash or Ulcers Neurological: no slurred speech, AOx3 Result Diagrams: 08/14/19 05:39 08/14/19 05:39 Microbiology and Other Data: Microbiology 08/09/19 11:52 Aerobic Blood Culture - Preliminary Blood Venous No Growth Day 2 Anaerobic Blood Culture - Preliminary No Growth Day 2 08/09/19 11:22 Aerobic Blood Culture - Preliminary Blood Venous No Growth Day 2 Anaerobic Blood Culture - Preliminary No Growth Day 2 08/09/19 20:25 Transfusion Reaction Culture - Preliminary Blood Bag No Growth Day 2 Transfusion Reaction Gram Stain - Final Diagnostic Imaging: CXR:right lower lung airspace opacity Assess/Plan/Problems-Billing Assessment: 79W with JAK2+ myeloproliferative disease with splenomegaly, asthma, HTN, presents with wheezing, dyspnea, and cough, initially treated for asthma exacerbation, now found to have elevated CRP, right lung opacity in CXR which consistent with pneumonia. Her hospital course complicated by Afib with RVR which controlled with Cardizem, iatrogenic hyperthyroidism for which levothyroixine dose was adjusted, and pancytopenia likely due to her blood disease with spleen sequestration. - Patient Problems (1) Pneumonia Current Visit: Yes Status: Acute Priority: High Code(s): J18.9 - PNEUMONIA , UNSPECIFIED ORGANISM SNOMED Code(s): 713548997 Comment: - initially the diagnosis was vague, now turns clear with opacities in right chest, and elevated CRP to 242 - urine antigen neg - convert to iv levofloxacin for better pseudomona coverage, dose adjusted based on kidney function-> for oral levofloxacin total 5 days if she goes home - no more fever (2) Asthma Current Visit: Yes Status: Acute Code(s): J45.909 - UNSPECIFIED ASTHMA, UNCOMPLICATED SNOMED Code(s): 854100846 Comment: Presenting with exacerbation after recently stopping high dose steroids (on these for myeloproliferative disorder). - still occasional wheeze on auscultation, will give regular nebs for today - start prednisone 40mg (08/12 - ), will taper down 5mg every 3 days - cont home Advair formulary substitute bid (3) Pancytopenia Current Visit: Yes Status: Acute Code(s): D61.818 - OTHER PANCYTOPENIA SNOMED Code(s): 719473245 Comment: - improving from yesterday, thrombocytopenia not much improved - Hb 7.9 today - appreciate Dr. Arevalo's recs. likely spleen sequestration with her underlying JAK2+ myeloproliferative disease - continue JAKAFI 10mg twice daily - repeat cbc tomorrow (4) Afib Current Visit: Yes Status: Acute Code(s): I48.91 - UNSPECIFIED ATRIAL FIBRILLATION SNOMED Code(s): 93731252 Comment: New this admission, with RVR, in setting of asthma exacerbation, possible respiratory infection, transfusion reaction, holding home beta-kelly , and iatrogenic hyperthyroidism. - converted with dilt drip, now on PO - f/u with bean sorter outpt (5) HTN (hypertension) Current Visit: Yes Status: Acute Code(s): I10 - ESSENTIAL (PRIMARY) HYPERTENSION SNOMED Code(s): 24994246 Comment: - holding home valsartan in setting of acute illness, BPs at goal (6) Weakness Current Visit: Yes Status: Acute Code(s): R53.1 - WEAKNESS SNOMED Code(s) : 51313356 Comment: Likely from multiple acute medical issues. Also with recent discontinuation of high-dose steroids (30-40mg of prednisone for > 1 month). - monitor response to giving steroids for asthma - PT ordered, sit out of bed daily (7) Hypothyroid Current Visit: Yes Status: Chronic Priority: Low Code(s): E03.9 - HYPOTHYROIDISM, UNSPECIFIED SNOMED Code(s): 66381713 Comment: Now with iatrogenic hyperthyroidism, with afib and RVR this admission. - decrease levothyroxine to 25mcg daily, as TSH low (and goal is likely slightly above normal range for this octogenarian) - likely doesn't need to be on this medication at all - f/u repeat TSH in mid- September and titrate accordingly (8) DVT prophylaxis Current Visit: Yes Status: Acute Priority: Low Code(s): VPP3876 - SNOMED Code(s): 667715390 Comment: - SCDs given low platelets Status and Disposition: Inpatient Medicine, discharge tomorrow if Plt keeps stable and no bleeding events Attestation Documenting Resident: Apolonia Aguilar Supervising Physician: Joseph Whitfield Attending/Supervising Physician Comment: Patient's respiratory status has improved. She is ambulatory, off O2. Continue treatment for asthma and CAP in immunocompromised state. Myelofibrosis under treatment with hematology. Discharge tomorrow once home health care set up. Attestation: This service has been performed in part by a resident under the direction of a teaching physician.I, Joseph Whitfield, performed the service, or was physically present during the critical, or chirinos portions of the service, furnished by the resident. I participated in the management of the patient.
[2019-08-15] MEDS: Albuterol/Ipratropium NEB.SOL* Albuterol 2.5 MG/Ipratropium 0.5 MG 3 ML INH SCH ×2 (01:11→07:46)
[2019-08-15] MEDS: Levothyroxine TAB* 25 MCG TAB PO SCH (05:18)
[2019-08-15] MEDS: Mometasone/Formoter 200/5 MDI INH SCH (07:46)
[2019-08-15] MEDS ORDERED: Albuterol/Ipratropium NEB.SOL* Albuterol 2.5 MG/Ipratropium 0.5 MG 3 ML INH PRN (07:51)
[2019-08-15] MEDS: Potassium Chlor TAB* 20 MEQ TAB.ER PO SCH (08:03)
[2019-08-15] MEDS: Diltiazem CD CAP* 120 MG PO SCH (08:03)
[2019-08-15] MEDS: Ruxolitinib (NF) 5 MG TABLET PO SCH (08:04)
[2019-08-15 09:07] LABS: Hematocrit 28 % (35-47); Hemoglobin 9.5 g/dL (12.0-16.0); Mean Corpuscular HGB Conc 33 g/dL (31-36); Mean Corpuscular Hemoglobin 30 pg (27-31); Mean Corpuscular Volume 91 fL (80-97); Red Blood Count 3.13 10^6 /uL (3.70-4.87); Red Cell Distribution Width 17 % (10-15); White Blood Count 7.3 10^3/uL (3.5-10.8)
[2019-08-15 09:16] LABS: Calcium 9.1 mg/dL (8.6-10.3); EGFR African American 51.2 (>60); EGFR Non-African American 42.3 (>60)
[2019-08-15 09:17] LABS: ABS Lymphocytes 1.4 10^3/ul (1.0-4.8); ABS Monocytes 0.2 10^3/ul (0-0.8); ABS Neutrophils 5.6 10^3/ul (1.5-7.7); ABS Nucleated RBC 0.1 10^3/ul; Eosinophil % 0.4 %; Lymphocyte % 19.9 %; Mean Platelet Volume 11.6 fL (7.4-10.4); Nucleated Red Blood Cells % 0.8; Platelet Count 27 10^3/uL (150-450)
[2019-08-15 12:13] VITALS: BP 139/51
[2019-08-15] MEDS: Levofloxacin 750 MG IVPREMIX(* 750 MG/150 ML BAG IVPB SCH (15:09)
--- NOTE | 2019-08-15 18:23 | DS ---
Resident Discharge Summary Discharge Summary: Date of Admission: 08/09/19 Date of Discharge: 08/15/19 Admitting MD: Althea Chapa MD Attending MD: Joseph Whitfield MD Primary Care Physician: Lloyd Booth MD CC: Ozzie Haji [place] Medications Medication Instructions Recorded Confirmed Type Atenolol TAB* [Tenormin TAB* 25 MG] 25 mg PO DAILY 11/22/14 08/09/19 History Ascorbic Acid TAB* [Vitamin C 500 mg PO DAILY 12/14/18 08/09/19 History TAB*] Calcium Carbonate [Calcium] 600 mg PO DAILY 12/14/18 08/09/19 History Fluticasone-Salmeterol 250-50* 1 puff INH BID 12/14/18 08/09/19 History [Advair Diskus 250-50*] Vitamin B Complex CAP* [B Complex 1 cap PO DAILY 12/14/18 08/09/19 History CAP*] Albuterol HFA INHALER* [Ventolin 2 puff INH Q4H PRN 08/09/19 08/09/19 History HFA Inhaler*] Albuterol Sulfate 0.63 mg INH .Q4-6H 08/09/19 08/09/19 History Clopidogrel TAB* [Plavix TAB*] 75 mg PO DAILY 08/09/19 08/09/19 History Clotrimazole [Fungi Cure] 2 drop TOPICAL BEDTIME 08/09/19 08/09/19 History Iron Ps Complex/B12/Folic Acid 1 cap PO DAILY 08/09/19 08/09/19 History [Poly-Iron 150 Forte Capsule] Levothyroxine TAB* [Synthroid TAB*] 75 mcg PO DAILY 08/09/19 08/09/19 History Magnesium Oxide TAB* [MagOx 400 400 mg PO DAILY 08/09/19 08/09/19 History TAB*] Triamcinolone Acetonide 0.5 % TOPICAL BID 08/09/19 08/09/19 History Valsartan TAB* [Diovan TAB*] 40 mg PO DAILY 08/09/19 08/09/19 History Diltiazem CD CAP* [Cardizem CD 120 mg PO DAILY #30 cap.cd 08/15/19 Rx CAP*] Levothyroxine TAB* [Synthroid 25 25 mcg PO DAILY@0600 tab 08/15/19 Rx MCG TAB*] Ruxolitinib (NF) [Jakafi] 10 mg PO BID tablet 08/15/19 Rx levoFLOXacin [Levofloxacin] 750 mg PO DAILY #2 tablet 08/15/19 Rx predniSONE 10 mg TAB [Deltasone 10 35mg daily, taper 5mg every 3 days until off #42 tab 08/15/19 Rx MG TAB*] Disposition: Stable Condition: Stable to home Primary Diagnosis: 1. Asthma Exacerbation 2. Pneumonia 3. Atrial fibrillation with rapid ventricular rate 4. Anemia 5. Thrombocytopenia Secondary Diagnosis: 1. Myeloproliferative disorder (JAK2+) with splenomegaly on Jakafi 2. Hypertension 3. Hypothyrodism 4. Peripheral vascular disease s/p fem bypass Diagnostic Imaging: TTE: EF 55-60%, LV function preserved, mod pulmonary hypertension from last scan Chest CTA 08/09/2019: no PE, small bilateral pleural effusion CXR 08/13/2019: a patch of infiltrate in right lung base Pertinent Laboratory Results: CBC on adm: WBC 5.7, HB 7.7, Plt 31 CRP 84.83 BNP 410 Creatinine 1.26 TSH 0.3, thyroxine 6.3 blood cs neg Hospital Course: Meghna Hassan is a 79 yo female with significant history of JAK2+ myeloproliferative disorder with splenomegaly requiring snf transfusion, hypertension, asthma, hyperlipidemia, initially presented with shortness of breath and lethargy. Please refer to initial H&P for more details. 1. Asthma exacerbation and pneumonia She was found to be wheezing and questionable pneumonia in CT scan on admission , she was treated with steroid, regular nebulizer, IV ceftriaxone for asthma exacerbation. She initially improved in terms of breathing status but then developed fever and notice sat O2 level not improving, thus another CXR was performed, it turned out her right lower zone opacities are more apparent, urine antigen test neg. So she was converted to levofloxacin for better antipseudomonal coverage. Patient improved greatly improved with the above treatment, and managed to take off O2 on the day of discharge with sat O2 94%. 2.AFib with RVR Her course complicated with Afib with RVR in the setting of asthma exacerbation. This was converted to normal sinus rhythm with dilt drip, and put on oral diltiazem for home. 3. Hypothyroidism She was also tested TSH found to have iatrogenic hyperthyroid, thus we decreased her levothyroxine to 25mg daily. 4. Pancytopenia and myeloproliferative disease During her hospital stay, she was found to have symptomatic anemia with Hb 6.5, thus she was transfused. She was also found to be pancytopenic at some point for which we consulted hematology who thinks related to her blood disease with spleen sequestration. She has no active bleeding, and she was educated on low counts precaution, she would follow up with her primary stonecutter Dr. Arevalo in a few days in clinic. 5. Functional status She was assessed by physical therapist and was believed at her baseline and safe for home. She did have a partner who could help her when she went back. Follow Up Instructions: Patient was instructed on new medication on discharge including levofloxacin, pred tapering scheduling, and diltiazem Followup 1. PCP: follow up with your primary care within 1 week for your pneumonia and asthma. 2. Hematology: - Lab check with Dr. Arevalo's team 08/22 @ 1000, then follow-up with HIRO Fritz 08/29 @ 1240 for repeat labs. Continue Jakafi. 3. Cardiology: follow up with Dr. Edgar for Afib in 1 month In case of an emergency or after clinic hours, please go to your nearest Emergency Department. You may also call the [facility] derrick car operator at ( [phone].
== END 2019-08-15 16:40 | disposition home or self-care (01) | DRG 202 ==
LOC: ED 10:40 → MED 16:35 → MEDTELE 08-10 10:07
PROVIDERS: ADMIT Internal Medicine Hematology & Oncology; ATTEND Internal Medicine
PROC: 30233N1 Transfusion of Nonautologous Red Blood Cells into Peripheral Vein, Percutaneous Approach (ICD-10-PCS; principal; 2019-08-09)
DX: J45.901 Unspecified asthma with (acute) exacerbation (principal); J18.9 Pneumonia, unspecified organism; D47.1 Chronic myeloproliferative disease; C94.6 Myelodysplastic disease, not elsewhere classified; I47.1 Supraventricular tachycardia; I10 Essential (primary) hypertension; H91.90 Unspecified hearing loss, unspecified ear; I44.7 Left bundle-branch block, unspecified; E11.51 Type 2 diabetes mellitus with diabetic peripheral angiopathy without gangrene; I08.1 Rheumatic disorders of both mitral and tricuspid valves; E03.9 Hypothyroidism, unspecified; I27.20 Pulmonary hypertension, unspecified; Z66 Do not resuscitate; I48.91 Unspecified atrial fibrillation; Z88.2 Allergy status to sulfonamides; Z79.890 Hormone replacement therapy; Z97.4 Presence of external hearing-aid; Z79.02 Long term (current) use of antithrombotics/antiplatelets
CPT/HCPCS: 36415; 71045; 71046; 71275; 80048; 80053; 81003; 81015; 83605; 83735; 83880; 84436; 84439; 84443; 84484; 85025; 85045; 85060; 85610; 86078; 86140; 86850; 86900; 86901; 86922; 87040; 87070; 87205; 87899; 93005; 93306; 94640; 94667; 94668; 99222; 99232; 99233; 99283; A9270-GY; J0696; J3475; J3480; J3490; J7512; P9040; Q9967

== ENCOUNTER 2020-08-28 08:30 | Inpatient (IN) ==
[~2020-08-28 08:30] MED LIST: Buffered Lidocaine 1% SYRIN 1 ml INTRADERM ONE; Lactated Ringers 1000 ml BAG 1,000 ML IV SCH
[2020-08-28] MEDS ORDERED: ceFAZolin 2 GM PREMIX 2 GM/50 ML BAG ONE (09:04)
[2020-08-28] MEDS ORDERED: Buffered Lidocaine 1% SYRIN 1 ml INTRADERM ONE (09:04)
[2020-08-28] MEDS ORDERED: Propofol 10 MG/ML 20 ML BTL ONE (09:26)
[2020-08-28] MEDS ORDERED: Lidocaine 2% PF 5 ML VIAL ONE (09:26)
[2020-08-28] MEDS ORDERED: Rocuronium 50 mg VIAL 10 mg/ml 5 ml VIAL (50 mg) ONE ×2 (09:26→10:55)
[2020-08-28] MEDS ORDERED: fentaNYL 100 mcg/2 ml 50 MCG/ML VIAL ONE ×2 (09:26→10:55)
[2020-08-28] MEDS ORDERED: Etomidate 20 mg/10 ml 2 MG/ML 10 ml VIAL ONE ×2 (10:55→10:56)
[2020-08-28] MEDS ORDERED: Albumin Human 5% 12.5 GM/250 ML BTL IV ONE (11:00)
[2020-08-28] MEDS ORDERED: HYDROmorphone 1 MG/1 ML SYRINGE ONE (11:56)
[2020-08-28] MEDS ORDERED: fentaNYL 100 mcg/2 ml 50 MCG/ML VIAL IV PRN (12:44)
[2020-08-28] MEDS ORDERED: Naloxone 0.4 mg VIAL 0.4 mg/ml 1 ml VIAL IV PRN (12:44)
[2020-08-28] MEDS ORDERED: diPHENhydraMINE IV 50 MG/ML 1 ml VIAL (BENADRYL) IV PRN ×2 (12:44→12:47)
[2020-08-28] MEDS ORDERED: Ondansetron 4 mg VIAL 2 MG/ML 2 ml VIAL IV PRN (12:47)
[2020-08-28] MEDS ORDERED: Lactated Ringers 1000 ml BAG 1,000 ML IV SCH (13:00)
[2020-08-28 13:14] LABS: Hematocrit 24 % (35-47); Hemoglobin 8.1 g/dL (12.0-16.0); Mean Corpuscular HGB Conc 34 g/dL (31-36); Mean Corpuscular Hemoglobin 31 pg (27-31); Mean Corpuscular Volume 91 fL (80-97); Mean Platelet Volume 9.5 fL (7.4-10.4); Platelet Count 40 10^3/uL (150-450); Red Blood Count 2.65 10^6 /uL (3.70-4.87); Red Cell Distribution Width 18 % (10-15); White Blood Count 10.7 10^3/uL (3.5-10.8)
[2020-08-28 13:37] LABS: Albumin 3.9 g/dL (3.2-5.2); Albumin/Globulin Ratio 1.7 (1-3); BUN/Creatinine Ratio 15.1 (8-20); C Reactive Protein 13.86 mg/L (<8.01); Calcium 8.9 mg/dL (8.6-10.3); EGFR African American 60.1 (>60); EGFR Non-African American 49.6 (>60); Globulin 2.3 g/dL (2-4); Potassium 3.9 mmol/L (3.5-5.0); Total Bilirubin 0.9 mg/dL (0.2-1.0); Total Protein 6.2 g/dL (6.4-8.9)
[2020-08-28 13:48] LABS: Polychromasia 2+
[2020-08-28 13:51] LABS: ABS Basophils 0.1 10^3/ul (0-0.2); ABS Eosinophils 0.1 10^3/ul (0-0.6); ABS Lymphocytes 1.3 10^3/ul (1.0-4.8); ABS Monocytes 0.2 10^3/ul (0-0.8); ABS Neutrophils 9.5 10^3/ul (1.5-7.7); ABS Nucleated RBC 0.4 10^3/ul; Eosinophil % 0.5 %; Lymphocyte % 11.5 %; Nucleated Red Blood Cells % 3.1
[2020-08-28] MEDS ORDERED: Furosemide 40 mg/4 ml IV VIAL IV ONE (13:55)
[2020-08-28] MEDS ORDERED: Furosemide 20 mg/2 ml IV VIAL ONE (14:53)
[2020-08-28] MEDS ORDERED: Albuterol HFA INHALER 8 gm MDI INH PRN (16:17)
[2020-08-28] MEDS: Azithromycin 500 mg/250 ml NS 500 MG/250 ML BAG IVPB SCH (17:20)
[2020-08-28] MEDS: Mometasone/Formoter 200/5 MDI INH SCH (19:21)
[2020-08-28] MEDS: cefTRIAXone 1 gm/50 mL NS BAG 1 GM/50 ML BAG IVPB SCH (20:10)
[2020-08-28] MEDS: RUXOLITINIB 5 MG PO SCH (20:14)
[2020-08-28] MEDS ORDERED: Fluticasone-Salmeterol 250-50 DISKUS INH SCH (21:00)
[2020-08-28] MEDS ORDERED: Enoxaparin 40 MG/0.4 ML SYR SUBCUT SCH (21:00)
[2020-08-29 06:20] LABS: Hematocrit 21 % (35-47); Hemoglobin 7.3 g/dL (12.0-16.0); Mean Corpuscular HGB Conc 35 g/dL (31-36); Mean Corpuscular Hemoglobin 31 pg (27-31); Mean Corpuscular Volume 89 fL (80-97); Mean Platelet Volume 9.3 fL (7.4-10.4); Platelet Count 39 10^3/uL (150-450); Red Blood Count 2.37 10^6 /uL (3.70-4.87); Red Cell Distribution Width 18 % (10-15); White Blood Count 11.5 10^3/uL (3.5-10.8)
[2020-08-29 06:25] LABS: ABS Basophils 0.1 10^3/ul (0-0.2); ABS Eosinophils 0.1 10^3/ul (0-0.6); ABS Lymphocytes 1.7 10^3/ul (1.0-4.8); ABS Monocytes 0.4 10^3/ul (0-0.8); ABS Neutrophils 9.8 10^3/ul (1.5-7.7); ABS Nucleated RBC 0.3 10^3/ul; Eosinophil % 0.5 %; Lymphocyte % 14.4 %; Nucleated Red Blood Cells % 2.7
[2020-08-29 06:36] LABS: BUN/Creatinine Ratio 17.8 (8-20); Calcium 9.1 mg/dL (8.6-10.3); EGFR African American 53.1 (>60); EGFR Non-African American 43.9 (>60); Polychromasia 2+; Potassium 4.1 mmol/L (3.5-5.0)
[2020-08-29] MEDS: Mometasone/Formoter 200/5 MDI INH SCH ×2 (07:46→19:06)
[2020-08-29] MEDS: RUXOLITINIB 5 MG PO SCH ×3 (08:00→22:12)
[2020-08-29] MEDS: cefTRIAXone 1 gm/50 mL NS BAG 1 GM/50 ML BAG IVPB SCH (15:39)
[2020-08-29] MEDS: Azithromycin 500 mg/250 ml NS 500 MG/250 ML BAG IVPB SCH (16:27)
[2020-08-29] MEDS ORDERED: Calcium Carb (TUMS) 500 mg CHEW TAB ONE ×2 (17:13→17:54)
[2020-08-29] MEDS: Calcium Carb (TUMS) 500 mg CHEW TAB PO SCH (23:53)
[2020-08-30 06:54] LABS: Calcium 9.3 mg/dL (8.6-10.3); EGFR African American 61.4 (>60); EGFR Non-African American 50.7 (>60); Potassium 3.8 mmol/L (3.5-5.0)
[2020-08-30] MEDS: Mometasone/Formoter 200/5 MDI INH SCH ×2 (07:35→19:33)
[2020-08-30] MEDS: Calcium Carb (TUMS) 500 mg CHEW TAB PO SCH ×4 (07:59→20:12)
[2020-08-30] MEDS: RUXOLITINIB 5 MG PO SCH ×2 (07:59→20:12)
[2020-08-30 09:30] LABS: Hematocrit 19 % (35-47); Hemoglobin 6.7 g/dL (12.0-16.0); Mean Corpuscular HGB Conc 35 g/dL (31-36); Mean Corpuscular Hemoglobin 31 pg (27-31); Mean Corpuscular Volume 89 fL (80-97); Mean Platelet Volume 9.5 fL (7.4-10.4); Platelet Count 30 10^3/uL (150-450); Red Blood Count 2.14 10^6 /uL (3.70-4.87); Red Cell Distribution Width 18 % (10-15); White Blood Count 7.3 10^3/uL (3.5-10.8)
[2020-08-30 09:40] LABS: ABS Basophils 0.1 10^3/ul (0-0.2); ABS Eosinophils 0.1 10^3/ul (0-0.6); ABS Monocytes 0.4 10^3/ul (0-0.8); ABS Neutrophils 5.8 10^3/ul (1.5-7.7); ABS Nucleated RBC 0.2 10^3/ul; Eosinophil % 0.8 %; Lymphocyte % 13.8 %; Nucleated Red Blood Cells % 2.6; Polychromasia 2+
[2020-08-30] MEDS: Benzocaine/Menthol LOZ PO PRN (09:49)
[2020-08-30] MEDS: cefTRIAXone 1 gm/50 mL NS BAG 1 GM/50 ML BAG IVPB SCH (16:35)
[2020-08-30] MEDS ORDERED: diPHENhydraMINE 25 mg TAB PO ONE (17:07)
[2020-08-30] MEDS: Azithromycin 500 mg/250 ml NS 500 MG/250 ML BAG IVPB SCH (17:13)
[2020-08-31 06:22] LABS: ABS Basophils 0.1 10^3/ul (0-0.2); ABS Eosinophils 0.1 10^3/ul (0-0.6); ABS Lymphocytes 0.9 10^3/ul (1.0-4.8); ABS Monocytes 0.2 10^3/ul (0-0.8); ABS Neutrophils 5.2 10^3/ul (1.5-7.7); ABS Nucleated RBC 0.2 10^3/ul; Eosinophil % 1.1 %; Hematocrit 25 % (35-47); Hemoglobin 8.9 g/dL (12.0-16.0); Lymphocyte % 13.1 %; Mean Corpuscular HGB Conc 35 g/dL (31-36); Mean Corpuscular Hemoglobin 31 pg (27-31); Mean Corpuscular Volume 88 fL (80-97); Mean Platelet Volume 8.3 fL (7.4-10.4); Nucleated Red Blood Cells % 3.3; Platelet Count 25 10^3/uL (150-450); Red Blood Count 2.85 10^6 /uL (3.70-4.87); Red Cell Distribution Width 17 % (10-15); White Blood Count 6.5 10^3/uL (3.5-10.8)
[2020-08-31] MEDS: Mometasone/Formoter 200/5 MDI INH SCH ×2 (07:03→19:27)
[2020-08-31] MEDS: RUXOLITINIB 5 MG PO SCH ×2 (08:32→21:20)
[2020-08-31] MEDS: Calcium Carb (TUMS) 500 mg CHEW TAB PO SCH ×3 (08:32→21:10)
[2020-08-31] MEDS: Benzocaine/Menthol LOZ PO PRN (08:35)
[2020-08-31] MEDS: cefTRIAXone 1 gm/50 mL NS BAG 1 GM/50 ML BAG IVPB SCH (16:16)
[2020-09-01] MEDS: Calcium Carb (TUMS) 500 mg CHEW TAB PO SCH (07:48)
[2020-09-01] MEDS: Mometasone/Formoter 200/5 MDI INH SCH (07:51)
[2020-09-01 08:12] LABS: Hematocrit 28 % (35-47); Hemoglobin 9.7 g/dL (12.0-16.0); Mean Corpuscular HGB Conc 35 g/dL (31-36); Mean Corpuscular Hemoglobin 31 pg (27-31); Mean Corpuscular Volume 89 fL (80-97); Mean Platelet Volume 9.1 fL (7.4-10.4); Platelet Count 23 10^3/uL (150-450); Red Blood Count 3.11 10^6 /uL (3.70-4.87); Red Cell Distribution Width 17 % (10-15); White Blood Count 7.4 10^3/uL (3.5-10.8)
[2020-09-01] MEDS: RUXOLITINIB 5 MG PO SCH (08:20)
[2020-09-01 08:56] LABS: Polychromasia 1+
[2020-09-01 08:57] LABS: ABS Basophils 0.1 10^3/ul (0-0.2); ABS Lymphocytes 0.7 10^3/ul (1.0-4.8); ABS Monocytes 0.2 10^3/ul (0-0.8); ABS Neutrophils 6.4 10^3/ul (1.5-7.7); ABS Nucleated RBC 0.3 10^3/ul; Eosinophil % 0.5 %; Lymphocyte % 9.7 %; Nucleated Red Blood Cells % 3.9; Tear Drop Cells 2+
[2020-09-01 12:03] VITALS: BP 123/52
== END 2020-09-01 13:25 | disposition home health service (06) | DRG 194 ==
LOC: OR 08:30 → MED 13:54
PROVIDERS: ADMIT Hospitalist; ATTEND Orthopaedic Surgery Adult Reconstructive Orthopaedic Surgery

== ENCOUNTER 2021-02-17 10:13 | Inpatient (IN) ==
[~2021-02-17 10:13] MED LIST changes: +Dexamethasone IV 4 MG/ML VIAL 1 ml VIAL IV SLOW PU ONE; +Famotidine IV 10 MG/ML 2 ml VIAL (20 mg) IV ONE
[2021-02-17] MEDS ORDERED: Famotidine IV 10 MG/ML 2 ml VIAL (20 mg) ONE (10:57)
[2021-02-17] MEDS ORDERED: Dexamethasone IV 4 MG/ML VIAL 1 ml VIAL ONE (10:57)
[2021-02-17] MEDS ORDERED: ceFAZolin 2 GM in NS PREMIX 2 GM/100 ML BAG IVPB ONE (10:57)
[2021-02-17] MEDS ORDERED: Phenylephrine IV 10 MG/ML 1 ml VIAL ONE (11:10)
[2021-02-17] MEDS ORDERED: Lidocaine 2% PF 5 ML VIAL ONE ×2 (11:10→12:46)
[2021-02-17] MEDS ORDERED: Glycopyrrolate IV 0.2 MG/ML 1 ML VIAL ONE (11:10)
[2021-02-17] MEDS ORDERED: Rocuronium 50 mg VIAL 10 mg/ml 5 ml VIAL (50 mg) ONE (11:10)
[2021-02-17] MEDS ORDERED: fentaNYL 100 mcg/2 ml 50 MCG/ML VIAL ONE ×2 (11:10→13:11)
[2021-02-17] MEDS ORDERED: Propofol 10 MG/ML 20 ML BTL ONE (11:10)
[2021-02-17] MEDS ORDERED: Ketamine HCL 50 mg/ml 10 ml VIAL (500 MG) ONE (11:10)
[2021-02-17] MEDS ORDERED: Ondansetron 4 mg VIAL 2 MG/ML 2 ml VIAL ONE (11:10)
[2021-02-17 11:20] LABS: Mean Platelet Volume 8.9 fL (7.4-10.4); Platelet Count 87 10^3/uL (150-450)
[2021-02-17] MEDS ORDERED: Naloxone 0.4 mg VIAL 0.4 mg/ml 1 ml VIAL IV PRN (12:28)
[2021-02-17] MEDS ORDERED: fentaNYL 100 mcg/2 ml 50 MCG/ML VIAL IV PRN (12:28)
[2021-02-17] MEDS ORDERED: Prochlorperazine 5 mg/ml 2 ml VIAL (10 mg) IV PRN (12:28)
[2021-02-17] MEDS ORDERED: Morphine 4 MG/ML VIAL (1 ml) IV PRN (12:28)
[2021-02-17] MEDS ORDERED: Furosemide 20 mg/2 ml IV VIAL ONE (13:36)
[2021-02-17] MEDS ORDERED: Morphine 10 MG/ML VIAL (1 ml) ONE (13:40)
[2021-02-17] MEDS ORDERED: Midazolam 2 mg/2 ml VIAL 1 mg/ml 2 ml VIAL (2 mg) ONE ×2 (14:04→14:10)
[2021-02-17] MEDS ORDERED: Furosemide 40 mg/4 ml IV VIAL ONE (14:23)
[2021-02-17] MEDS ORDERED: Metoprolol Tartrate 5 mg VIAL 5 ml VIAL (1 mg/ml) ONE (14:26)
[2021-02-17] MEDS ORDERED: Albuterol 2.5mg/3 ml (0.083%) NEB.SOLN INH ONE (14:26)
[2021-02-17] MEDS ORDERED: Succinylcholine 200 mg VIAL 20 mg/ml 10 ml VIAL (200 mg) ONE (14:26)
[2021-02-17] MEDS ORDERED: Furosemide 40 mg/4 ml IV VIAL IV SLOW PU ONE (14:28)
[2021-02-17] MEDS ORDERED: Propofol 10 mg/ml 100 ML BTL 100 ML ONE (14:33)
[2021-02-17] MEDS ORDERED: Dextran 70/Hypromellose Tears Eye Drops 15 ml BTL (for Artificials Tears) BOTH EYES PRN (14:35)
[2021-02-17 14:58] LABS: Hematocrit 36 % (35-47); Hemoglobin 11.9 g/dL (12.0-16.0); Mean Corpuscular HGB Conc 33 g/dL (31-36); Mean Corpuscular Hemoglobin 30 pg (27-31); Mean Corpuscular Volume 92 fL (80-97); Mean Platelet Volume 8.9 fL (7.4-10.4); Platelet Count 122 10^3/uL (150-450); Red Blood Count 3.95 10^6 /uL (3.70-4.87); Red Cell Distribution Width 18 % (10-15); White Blood Count 66.3 10^3/uL (3.5-10.8)
[2021-02-17] MEDS: Propofol 10 mg/ml 100 ML BTL 100 ML IV SCH ×2 (15:02→20:50)
[2021-02-17 15:03] LABS: Calcium 8.4 mg/dL (8.6-10.3); EGFR African American 64.2 (>60); EGFR Non-African American 53.1 (>60); Potassium 4.7 mmol/L (3.5-5.0)
[2021-02-17 15:07] LABS: PCO2 Arterial 60 mmHg (35-45); PO2 Arterial 114 mmHg (80-100)
[2021-02-17] MEDS: Chlorhexidine MOUTHWASH 0.12% 15 ML UDC SWISH SPIT SCH ×2 (16:04→20:33)
[2021-02-17] MEDS: Pantoprazole VIAL 40 MG VIAL IV SCH (16:05)
[2021-02-17 16:20] LABS: Urine Appearance Clear; Urine Bilirubin Negative (Negative); Urine Blood Negative (Negative); Urine Color Straw; Urine Glucose Negative (Negative); Urine Ketones Negative (Negative); Urine Nitrite Negative (Negative); Urine Protein Negative (Negative); Urine Specific Gravity 1.006 (1.002-1.030); Urine Urobilinogen Negative (Negative)
[2021-02-17 16:43] LABS: Hypochromasia 1+; Macrocytosis 1+; Microcytosis 1+; Platelet Morphology Large; Polychromasia 1+
[2021-02-17 16:48] LABS: ABS Eosinophils 0.6 10^3/ul (0-0.6); ABS Lymphocytes 8.5 10^3/ul (1.0-4.8); ABS Monocytes 0.5 10^3/ul (0-0.8); ABS Neutrophils 56.8 10^3/ul (1.5-7.7); ABS Nucleated RBC 2.7 10^3/ul; Eosinophil % 0.9 %; Lymphocyte % 12.8 %
[2021-02-17 17:15] LABS: PCO2 Arterial 40 mmHg (35-45); PO2 Arterial 101 mmHg (80-100)
[2021-02-17 17:19] LABS: Hematocrit 36 % (35-47); Hemoglobin 12.1 g/dL (12.0-16.0); Mean Corpuscular HGB Conc 34 g/dL (31-36); Mean Corpuscular Hemoglobin 30 pg (27-31); Mean Corpuscular Volume 90 fL (80-97); Mean Platelet Volume 8.9 fL (7.4-10.4); Platelet Count 133 10^3/uL (150-450); Red Blood Count 4.02 10^6 /uL (3.70-4.87); Red Cell Distribution Width 18 % (10-15); White Blood Count 52.6 10^3/uL (3.5-10.8)
[2021-02-17 17:33] LABS: Anion Gap 9 mmol/L (2-11); Blood Urea Nitrogen 23 mg/dL (6-24); CO2 Carbon Dioxide 23 mmol/L (22-32); Calcium 9.2 mg/dL (8.6-10.3); Chloride 100 mmol/L (101-111); EGFR African American 66.5 (>60); Glucose 166 mg/dL (70-100); Phosphorus 5.2 mg/dL (2.5-5.0); Potassium 4.3 mmol/L (3.5-5.0); Sodium 132 mmol/L (135-145)
[2021-02-17] MEDS ORDERED: Norepinephrine 16MCG/ML IVPRE 4,000 MCG/250 ML BAG IV SCH (18:00)
[2021-02-17] MEDS ORDERED: Norepinephrine 16MCG/ML IVPRE 4,000 MCG/250 ML BAG IV ONE (18:00)
[2021-02-17] MEDS ORDERED: fentaNYL 100 mcg/2 ml 50 MCG/ML VIAL IV SLOW PU PRN (18:42)
[2021-02-17 19:52] LABS: Troponin I 0.03 ng/mL (<0.03)
[2021-02-17 21:09] LABS: Troponin I 0.05 ng/mL (<0.03)
[2021-02-18] MEDS ORDERED: Iodixanol (CONTRAST) 320 MG/ML 100 ML SDV IV ONE (00:11)
[2021-02-18] MEDS: Propofol 10 mg/ml 100 ML BTL 100 ML IV SCH ×4 (00:28→14:55)
[2021-02-18] MEDS: Chlorhexidine MOUTHWASH 0.12% 15 ML UDC SWISH SPIT SCH ×5 (01:49→16:49)
[2021-02-18 02:00] LABS: Troponin I 0.04 ng/mL (<0.03)
[2021-02-18] MEDS ORDERED: Heparin DRIP 25,000 UNITS BAG 25,000 UNITS/500 ML BAG IV SCH (06:30)
[2021-02-18] MEDS ORDERED: Heparin 5000 UNITS/ML 1 mL VIAL IV SCH (07:00)
[2021-02-18 07:03] LABS: INR 1.38 (0.86-1.15)
[2021-02-18 07:05] LABS: Hematocrit 30 % (35-47); Hemoglobin 10.6 g/dL (12.0-16.0); Mean Corpuscular HGB Conc 35 g/dL (31-36); Mean Corpuscular Hemoglobin 31 pg (27-31); Mean Corpuscular Volume 89 fL (80-97); Mean Platelet Volume 8.8 fL (7.4-10.4); Platelet Count 140 10^3/uL (150-450); Red Blood Count 3.41 10^6 /uL (3.70-4.87); Red Cell Distribution Width 18 % (10-15); White Blood Count 54.4 10^3/uL (3.5-10.8)
[2021-02-18 07:28] LABS: Calcium 8.6 mg/dL (8.6-10.3)
[2021-02-18] MEDS: Acetaminophen IV 1 GM/100ML 100 ML IV PRN ×2 (07:38→21:13)
[2021-02-18 09:12] LABS: Anisocytosis 1+; Polychromasia 2+
[2021-02-18] MEDS: cefTRIAXone 1 gm/50 mL NS BAG 1 GM/50 ML BAG IVPB SCH ×2 (09:15→21:13)
[2021-02-18 09:18] LABS: ABS Lymphocytes 1.6 10^3/ul (1.0-4.8); ABS Neutrophils 45.7 10^3/ul (1.5-7.7)
[2021-02-18] MEDS: Azithromycin 500 mg/250 ml NS 500 MG/250 ML BAG IVPB SCH (10:48)
[2021-02-18] MEDS: fentaNYL 100 mcg/2 ml 50 MCG/ML VIAL ONE ×2 (14:05→14:38)
[2021-02-18] MEDS: Pantoprazole VIAL 40 MG VIAL IV SCH (16:49)
[2021-02-18] MEDS: Budesonide NEB 0.5 MG/2 ML NEB.SOLN INH SCH (19:09)
[2021-02-18] MEDS ORDERED: RUXOLITINIB 10 MG PO SCH (21:00)
[2021-02-18] MEDS: PTO: Ruxolitinib (NF) 5 MG TABLET PO SCH (21:57)
[2021-02-19] MEDS: Acetaminophen IV 1 GM/100ML 100 ML IV PRN (04:42)
[2021-02-19 06:20] LABS: ABS Basophils 0.1 10^3/ul (0-0.2); ABS Eosinophils 0.2 10^3/ul (0-0.6); ABS Lymphocytes 1.5 10^3/ul (1.0-4.8); ABS Monocytes 0.5 10^3/ul (0-0.8); ABS Neutrophils 13.8 10^3/ul (1.5-7.7); ABS Nucleated RBC 0.2 10^3/ul; Eosinophil % 1.4 %; Hematocrit 23 % (35-47); Hemoglobin 7.8 g/dL (12.0-16.0); INR 1.48 (0.86-1.15); Lymphocyte % 9.5 %; Mean Corpuscular HGB Conc 34 g/dL (31-36); Mean Corpuscular Hemoglobin 31 pg (27-31); Mean Corpuscular Volume 89 fL (80-97); Mean Platelet Volume 8.3 fL (7.4-10.4); Nucleated Red Blood Cells % 1.2; Platelet Count 48 10^3/uL (150-450); Red Blood Count 2.54 10^6 /uL (3.70-4.87); Red Cell Distribution Width 18 % (10-15); White Blood Count 16.4 10^3/uL (3.5-10.8)
[2021-02-19 06:22] LABS: Albumin 3.3 g/dL (3.2-5.2); Albumin/Globulin Ratio 1.6 (1-3); Calcium 8.1 mg/dL (8.6-10.3); EGFR African American 62.1 (>60); EGFR Non-African American 51.3 (>60); Globulin 2.1 g/dL (2-4); Magnesium 1.9 mg/dL (1.9-2.7); Phosphorus 3.7 mg/dL (2.5-5.0); Potassium 3.5 mmol/L (3.5-5.0); Total Bilirubin 0.6 mg/dL (0.2-1.0); Total Protein 5.4 g/dL (6.4-8.9)
[2021-02-19 06:45] LABS: Hematocrit 23 % (35-47); Hemoglobin 7.8 g/dL (12.0-16.0); Mean Corpuscular HGB Conc 34 g/dL (31-36); Mean Corpuscular Hemoglobin 31 pg (27-31); Mean Corpuscular Volume 90 fL (80-97); Mean Platelet Volume 8.1 fL (7.4-10.4); Platelet Count 48 10^3/uL (150-450); Red Blood Count 2.54 10^6 /uL (3.70-4.87); Red Cell Distribution Width 18 % (10-15); White Blood Count 17.1 10^3/uL (3.5-10.8)
[2021-02-19] MEDS ORDERED: Magnesium Sulfate IV 1GM/100ML 1 GM/100 ML BAG IV ONE (07:35)
[2021-02-19] MEDS: KCL 20 MEQ/100 ML IVPREMIX 20 MEQ/100 ML BAG IV SCH ×2 (08:09→11:12)
[2021-02-19] MEDS: Budesonide NEB 0.5 MG/2 ML NEB.SOLN INH SCH ×2 (08:32→19:06)
[2021-02-19] MEDS: PTO: Ruxolitinib (NF) 5 MG TABLET PO SCH ×2 (08:56→21:10)
[2021-02-19] MEDS: Multivitamins/Minerals TAB PO SCH (08:56)
[2021-02-19] MEDS: cefTRIAXone 1 gm/50 mL NS BAG 1 GM/50 ML BAG IVPB SCH ×2 (09:04→21:12)
[2021-02-19] MEDS ORDERED: Furosemide 20 mg/2 ml IV VIAL IV ONE (09:38)
[2021-02-19 09:44] LABS: Hematocrit 23 % (35-47); Hemoglobin 8.1 g/dL (12.0-16.0); Mean Corpuscular HGB Conc 35 g/dL (31-36); Mean Corpuscular Hemoglobin 31 pg (27-31); Mean Corpuscular Volume 89 fL (80-97); Mean Platelet Volume 8.3 fL (7.4-10.4); Platelet Count 54 10^3/uL (150-450); Red Blood Count 2.62 10^6 /uL (3.70-4.87); Red Cell Distribution Width 18 % (10-15); White Blood Count 17.8 10^3/uL (3.5-10.8)
[2021-02-19 10:35] LABS: ABS Basophils 0.2 10^3/ul (0-0.2); ABS Eosinophils 0.2 10^3/ul (0-0.6); ABS Lymphocytes 1.3 10^3/ul (1.0-4.8); ABS Monocytes 0.6 10^3/ul (0-0.8); ABS Neutrophils 15.5 10^3/ul (1.5-7.7); ABS Nucleated RBC 0.2 10^3/ul; Lymphocyte % 7.1 %; Nucleated Red Blood Cells % 0.9
[2021-02-19] MEDS: Azithromycin 500 mg/250 ml NS 500 MG/250 ML BAG IVPB SCH (11:11)
[2021-02-19 11:36] LABS: RBC Morphology Normal (Normal)
[2021-02-20 05:55] LABS: Calcium 8.3 mg/dL (8.6-10.3); Potassium 3.6 mmol/L (3.5-5.0)
[2021-02-20 06:00] LABS: EGFR African American 69.8 (>60); EGFR Non-African American 57.7 (>60)
[2021-02-20] MEDS: Budesonide NEB 0.5 MG/2 ML NEB.SOLN INH SCH (06:04)
[2021-02-20 06:22] LABS: Hematocrit 21 % (35-47); Hemoglobin 7.5 g/dL (12.0-16.0); Mean Corpuscular HGB Conc 35 g/dL (31-36); Mean Corpuscular Hemoglobin 31 pg (27-31); Mean Corpuscular Volume 88 fL (80-97); Mean Platelet Volume 8.5 fL (7.4-10.4); Platelet Count 42 10^3/uL (150-450); Red Blood Count 2.42 10^6 /uL (3.70-4.87); Red Cell Distribution Width 17 % (10-15); White Blood Count 13.7 10^3/uL (3.5-10.8)
[2021-02-20] MEDS: cefTRIAXone 1 gm/50 mL NS BAG 1 GM/50 ML BAG IVPB SCH ×2 (07:53→19:25)
[2021-02-20] MEDS: Multivitamins/Minerals TAB PO SCH (07:54)
[2021-02-20] MEDS: PTO: Ruxolitinib (NF) 5 MG TABLET PO SCH ×2 (07:54→19:17)
[2021-02-20 08:45] LABS: RBC Morphology Normal (Normal)
[2021-02-20 08:46] LABS: ABS Basophils 0.1 10^3/ul (0-0.2); ABS Eosinophils 0.1 10^3/ul (0-0.6); ABS Lymphocytes 1.4 10^3/ul (1.0-4.8); ABS Monocytes 0.6 10^3/ul (0-0.8); ABS Neutrophils 11.4 10^3/ul (1.5-7.7); ABS Nucleated RBC 0.2 10^3/ul; Eosinophil % 0.9 %; Nucleated Red Blood Cells % 1.1
[2021-02-20] MEDS: Azithromycin 500 mg/250 ml NS 500 MG/250 ML BAG IVPB SCH (10:13)
[2021-02-20 20:59] LABS: HIT ELISA < 0.075 OD (<0.400); Heparin PF4 Antibody Interp Negative (Negative)
[2021-02-20] MEDS: Mometasone/Formoter 200/5 MDI INH SCH (22:18)
[2021-02-21 06:39] LABS: Hematocrit 22 % (35-47); Hemoglobin 7.8 g/dL (12.0-16.0); Mean Corpuscular HGB Conc 35 g/dL (31-36); Mean Corpuscular Hemoglobin 31 pg (27-31); Mean Corpuscular Volume 90 fL (80-97); Mean Platelet Volume 8.6 fL (7.4-10.4); Platelet Count 36 10^3/uL (150-450); Red Blood Count 2.51 10^6 /uL (3.70-4.87); Red Cell Distribution Width 18 % (10-15); White Blood Count 16.3 10^3/uL (3.5-10.8)
[2021-02-21 06:44] LABS: Calcium 8.6 mg/dL (8.6-10.3); EGFR African American 84.3 (>60); EGFR Non-African American 69.7 (>60); Magnesium 1.8 mg/dL (1.9-2.7); Potassium 3.9 mmol/L (3.5-5.0)
[2021-02-21] MEDS: Mometasone/Formoter 200/5 MDI INH SCH ×2 (07:31→19:32)
[2021-02-21] MEDS: cefTRIAXone 1 gm/50 mL NS BAG 1 GM/50 ML BAG IVPB SCH ×2 (10:04→19:17)
[2021-02-21] MEDS: Azithromycin 500 mg/250 ml NS 500 MG/250 ML BAG IVPB SCH (10:05)
[2021-02-21] MEDS: PTO: Ruxolitinib (NF) 5 MG TABLET PO SCH ×2 (10:05→19:17)
[2021-02-21] MEDS: Multivitamins/Minerals TAB PO SCH (10:05)
[2021-02-21 11:48] LABS: Hypochromasia 1+; Microcytosis 1+
[2021-02-21 11:49] LABS: Anisocytosis 1+; Basophilic Stippling 1+; Polychromasia 2+; Tear Drop Cells 2+
[2021-02-21 11:51] LABS: ABS Basophils 0.2 10^3/ul (0-0.2); ABS Eosinophils 0.1 10^3/ul (0-0.6); ABS Lymphocytes 1.7 10^3/ul (1.0-4.8); ABS Monocytes 0.4 10^3/ul (0-0.8); ABS Neutrophils 13.8 10^3/ul (1.5-7.7); ABS Nucleated RBC 0.2 10^3/ul; Eosinophil % 0.8 %; Lymphocyte % 10.4 %; Nucleated Red Blood Cells % 1.4
[2021-02-22 07:03] LABS: Immature Retic Fraction 0.67; RBC Retic Count 2.43 10^6/uL (3.70-4.87); Red Blood Count 2.43 10^6 /uL (3.70-4.87)
[2021-02-22 07:11] LABS: ABS Nucleated RBC 0.3 10^3/ul; Corrected Retic Count 2.7 % (0.5-1.5); Hematocrit 22 % (35-47); Hematocrit for Retic CNT 22 % (35-47); Hemoglobin 7.4 g/dL (12.0-16.0); Mean Corpuscular HGB Conc 35 g/dL (31-36); Mean Corpuscular Hemoglobin 31 pg (27-31); Mean Corpuscular Volume 88 fL (80-97); Mean Platelet Volume 8.6 fL (7.4-10.4); Nucleated Red Blood Cells % 1.8; Platelet Count 29 10^3/uL (150-450); Red Cell Distribution Width 18 % (10-15)
[2021-02-22 07:18] LABS: Calcium 8.7 mg/dL (8.6-10.3); EGFR African American 72.5 (>60); EGFR Non-African American 59.9 (>60); Potassium 3.9 mmol/L (3.5-5.0)
[2021-02-22] MEDS: Mometasone/Formoter 200/5 MDI INH SCH ×2 (07:38→20:24)
[2021-02-22] MEDS: cefTRIAXone 1 gm/50 mL NS BAG 1 GM/50 ML BAG IVPB SCH ×2 (08:56→20:52)
[2021-02-22] MEDS: PTO: Ruxolitinib (NF) 5 MG TABLET PO SCH ×2 (08:57→20:53)
[2021-02-22] MEDS: Multivitamins/Minerals TAB PO SCH (08:57)
[2021-02-22 09:18] LABS: Anisocytosis 1+; Hypochromasia 1+; Polychromasia 2+
[2021-02-22 09:19] LABS: Basophilic Stippling 1+; Spherocytes 1+; Tear Drop Cells 1+
[2021-02-22] MEDS: Azithromycin 500 mg/250 ml NS 500 MG/250 ML BAG IVPB SCH (10:54)
[2021-02-23 06:16] LABS: Hematocrit 22 % (35-47); Hemoglobin 7.3 g/dL (12.0-16.0); Mean Corpuscular HGB Conc 34 g/dL (31-36); Mean Corpuscular Hemoglobin 31 pg (27-31); Mean Corpuscular Volume 90 fL (80-97); Mean Platelet Volume 9.7 fL (7.4-10.4); Platelet Count 38 10^3/uL (150-450); Red Blood Count 2.39 10^6 /uL (3.70-4.87); Red Cell Distribution Width 18 % (10-15); White Blood Count 19.6 10^3/uL (3.5-10.8)
[2021-02-23 06:17] LABS: Anisocytosis 1+; Polychromasia 1+
[2021-02-23 06:18] LABS: ABS Basophils 0.2 10^3/ul (0-0.2); ABS Eosinophils 0.2 10^3/ul (0-0.6); ABS Lymphocytes 2.4 10^3/ul (1.0-4.8); ABS Monocytes 0.7 10^3/ul (0-0.8); ABS Nucleated RBC 0.3 10^3/ul; Lymphocyte % 12.5 %; Nucleated Red Blood Cells % 1.6
[2021-02-23] MEDS: Mometasone/Formoter 200/5 MDI INH SCH ×2 (07:25→19:50)
[2021-02-23] MEDS: cefTRIAXone 1 gm/50 mL NS BAG 1 GM/50 ML BAG IVPB SCH ×2 (10:03→20:59)
[2021-02-23] MEDS: PTO: Ruxolitinib (NF) 5 MG TABLET PO SCH ×2 (10:03→20:59)
[2021-02-23] MEDS: Multivitamins/Minerals TAB PO SCH (10:03)
[2021-02-23] MEDS: Azithromycin 500 mg/250 ml NS 500 MG/250 ML BAG IVPB SCH (16:48)
[2021-02-23] MEDS ORDERED: Azithromycin 500 mg/250 ml NS 500 MG/250 ML BAG IVPB SCH (17:00)
[2021-02-24 06:29] LABS: Hematocrit 24 % (35-47); Hemoglobin 8.6 g/dL (12.0-16.0); Mean Corpuscular HGB Conc 35 g/dL (31-36); Mean Corpuscular Hemoglobin 30 pg (27-31); Mean Corpuscular Volume 86 fL (80-97); Mean Platelet Volume 9.6 fL (7.4-10.4); Platelet Count 41 10^3/uL (150-450); Red Blood Count 2.83 10^6 /uL (3.70-4.87); Red Cell Distribution Width 18 % (10-15); White Blood Count 20.7 10^3/uL (3.5-10.8)
[2021-02-24 06:48] LABS: Calcium 8.9 mg/dL (8.6-10.3); EGFR African American 79.6 (>60); EGFR Non-African American 65.8 (>60)
[2021-02-24 07:03] LABS: ABS Basophils 0.2 10^3/ul (0-0.2); ABS Eosinophils 0.2 10^3/ul (0-0.6); ABS Lymphocytes 1.9 10^3/ul (1.0-4.8); ABS Monocytes 0.6 10^3/ul (0-0.8); ABS Neutrophils 17.9 10^3/ul (1.5-7.7); ABS Nucleated RBC 0.3 10^3/ul; Eosinophil % 1.1 %; Nucleated Red Blood Cells % 1.2
[2021-02-24] MEDS: cefTRIAXone 1 gm/50 mL NS BAG 1 GM/50 ML BAG IVPB SCH ×2 (08:02→20:10)
[2021-02-24] MEDS: Multivitamins/Minerals TAB PO SCH (08:02)
[2021-02-24] MEDS: PTO: Ruxolitinib (NF) 5 MG TABLET PO SCH ×2 (08:03→20:10)
[2021-02-24] MEDS: Mometasone/Formoter 200/5 MDI INH SCH ×2 (08:37→19:28)
[2021-02-24] MEDS: Enoxaparin 80 MG/0.8 ML SYR SUBCUT SCH ×2 (10:38→22:11)
[2021-02-25] MEDS: Multivitamins/Minerals TAB PO SCH (07:48)
[2021-02-25] MEDS: cefTRIAXone 1 gm/50 mL NS BAG 1 GM/50 ML BAG IVPB SCH ×2 (07:49→21:38)
[2021-02-25] MEDS: PTO: Ruxolitinib (NF) 5 MG TABLET PO SCH ×2 (07:49→21:37)
[2021-02-25] MEDS: Mometasone/Formoter 200/5 MDI INH SCH ×2 (08:11→19:51)
[2021-02-25 08:46] LABS: Hematocrit 28 % (35-47); Hemoglobin 9.6 g/dL (12.0-16.0); Mean Corpuscular HGB Conc 35 g/dL (31-36); Mean Corpuscular Hemoglobin 30 pg (27-31); Mean Corpuscular Volume 87 fL (80-97); Mean Platelet Volume 9.9 fL (7.4-10.4); Platelet Count 41 10^3/uL (150-450); Red Blood Count 3.17 10^6 /uL (3.70-4.87); Red Cell Distribution Width 18 % (10-15); White Blood Count 21.8 10^3/uL (3.5-10.8)
[2021-02-25] MEDS: Enoxaparin 80 MG/0.8 ML SYR SUBCUT SCH ×2 (09:13→21:37)
[2021-02-25 10:23] LABS: ABS Basophils 0.1 10^3/ul (0-0.2); ABS Eosinophils 0.2 10^3/ul (0-0.6); ABS Lymphocytes 1.5 10^3/ul (1.0-4.8); ABS Monocytes 0.7 10^3/ul (0-0.8); ABS Neutrophils 19.3 10^3/ul (1.5-7.7); ABS Nucleated RBC 0.4 10^3/ul; Eosinophil % 0.9 %; Nucleated Red Blood Cells % 1.6
[2021-02-25 10:27] LABS: Polychromasia 1+
[2021-02-26] MEDS: Mometasone/Formoter 200/5 MDI INH SCH (07:48)
[2021-02-26] MEDS: cefTRIAXone 1 gm/50 mL NS BAG 1 GM/50 ML BAG IVPB SCH (08:19)
[2021-02-26] MEDS: Multivitamins/Minerals TAB PO SCH (08:20)
[2021-02-26] MEDS: PTO: Ruxolitinib (NF) 5 MG TABLET PO SCH (08:20)
[2021-02-26 08:44] VITALS: BP 174/79
== END 2021-02-26 08:00 | DRG 553 ==
LOC: OR 10:13 → ICU 14:16 → MEDTELE 02-19 18:35
PROVIDERS: ADMIT Orthopaedic Surgery Adult Reconstructive Orthopaedic Surgery; ATTEND Internal Medicine Medical Oncology

== ENCOUNTER 2021-02-26 08:07 | Inpatient (IN) ==
[2021-02-26] MEDS ORDERED: Senna TAB 8.6 mg TAB PO PRN (12:57)
[2021-02-26] MEDS: PTO: Ruxolitinib 10 mg TAB (NF) PO SCH (20:24)
[2021-02-26] MEDS: Enoxaparin 80 MG/0.8 ML SYR SUBCUT SCH (20:25)
[2021-02-26] MEDS: cefTRIAXone 1 gm/50 mL NS BAG 1 GM/50 ML BAG IVPB SCH (20:27)
[2021-02-27 07:13] LABS: ABS Basophils 0.3 10^3/ul (0-0.2); ABS Eosinophils 0.2 10^3/ul (0-0.6); ABS Lymphocytes 1.6 10^3/ul (1.0-4.8); ABS Monocytes 0.7 10^3/ul (0-0.8); ABS Neutrophils 23.6 10^3/ul (1.5-7.7); ABS Nucleated RBC 0.3 10^3/ul; Eosinophil % 0.9 %; Hematocrit 26 % (35-47); Hemoglobin 8.9 g/dL (12.0-16.0); Lymphocyte % 6.2 %; Mean Corpuscular HGB Conc 35 g/dL (31-36); Mean Corpuscular Hemoglobin 30 pg (27-31); Mean Corpuscular Volume 87 fL (80-97); Mean Platelet Volume 9.6 fL (7.4-10.4); Nucleated Red Blood Cells % 1.3; Platelet Count 36 10^3/uL (150-450); Red Blood Count 2.95 10^6 /uL (3.70-4.87); Red Cell Distribution Width 18 % (10-15); White Blood Count 26.5 10^3/uL (3.5-10.8)
[2021-02-27 07:19] LABS: Albumin 3.8 g/dL (3.2-5.2); Albumin/Globulin Ratio 1.8 (1-3); Calcium 8.7 mg/dL (8.6-10.3); EGFR African American 84.3 (>60); EGFR Non-African American 69.7 (>60); Globulin 2.1 g/dL (2-4); Potassium 3.6 mmol/L (3.5-5.0); Total Bilirubin 0.7 mg/dL (0.2-1.0); Total Protein 5.9 g/dL (6.4-8.9)
[2021-02-27] MEDS: PTO: Ruxolitinib 10 mg TAB (NF) PO SCH (07:26)
[2021-02-27] MEDS: Enoxaparin 80 MG/0.8 ML SYR SUBCUT SCH ×2 (07:31→20:48)
[2021-02-27 08:59] LABS: RBC Morphology Normal (Normal)
[2021-02-27] MEDS: cefTRIAXone 1 gm/50 mL NS BAG 1 GM/50 ML BAG IVPB SCH (10:23)
[2021-02-27] MEDS ORDERED: Albuterol HFA INHALER 8 gm MDI INH PRN (12:25)
[2021-02-27] MEDS: Mometasone/Formoter 200/5 MDI INH SCH ×2 (14:14→20:48)
[2021-02-27] MEDS: RUXOLITINIB 5 MG PO SCH (20:48)
[2021-02-28] MEDS: RUXOLITINIB 5 MG PO SCH ×2 (08:56→20:18)
[2021-02-28] MEDS: Mometasone/Formoter 200/5 MDI INH SCH ×2 (08:57→20:18)
[2021-02-28] MEDS: Enoxaparin 80 MG/0.8 ML SYR SUBCUT SCH ×2 (09:01→20:17)
[2021-03-01 07:37] LABS: Hematocrit 29 % (35-47); Hemoglobin 9.9 g/dL (12.0-16.0); Mean Corpuscular HGB Conc 34 g/dL (31-36); Mean Corpuscular Hemoglobin 30 pg (27-31); Mean Corpuscular Volume 88 fL (80-97); Mean Platelet Volume 9.9 fL (7.4-10.4); Platelet Count 44 10^3/uL (150-450); Red Cell Distribution Width 18 % (10-15); White Blood Count 39.8 10^3/uL (3.5-10.8)
[2021-03-01 07:52] LABS: Albumin/Globulin Ratio 1.7 (1-3); Calcium 9.1 mg/dL (8.6-10.3); EGFR African American 72.5 (>60); EGFR Non-African American 59.9 (>60); Globulin 2.4 g/dL (2-4); Potassium 4.2 mmol/L (3.5-5.0); Total Protein 6.4 g/dL (6.4-8.9)
[2021-03-01] MEDS: RUXOLITINIB 5 MG PO SCH (08:06)
[2021-03-01] MEDS: Enoxaparin 80 MG/0.8 ML SYR SUBCUT SCH ×2 (08:07→20:02)
[2021-03-01] MEDS: Mometasone/Formoter 200/5 MDI INH SCH ×2 (08:07→20:03)
[2021-03-01 08:36] LABS: Basophilic Stippling 1+; Polychromasia 2+
[2021-03-01 08:37] LABS: ABS Basophils 0.4 10^3/ul (0-0.2); ABS Eosinophils 0.2 10^3/ul (0-0.6); ABS Monocytes 1.4 10^3/ul (0-0.8); ABS Neutrophils 35.9 10^3/ul (1.5-7.7); ABS Nucleated RBC 0.5 10^3/ul; Eosinophil % 0.4 %; Lymphocyte % 5.1 %; Nucleated Red Blood Cells % 1.3
[2021-03-01] MEDS: Hemorrhoidal OINT 1 TUBE PR PRN ×2 (18:02→22:20)
[2021-03-01] MEDS: PTO: Ruxolitinib (NF) 5 MG TABLET PO SCH (21:40)
[2021-03-02] MEDS: PTO: Ruxolitinib (NF) 5 MG TABLET PO SCH ×2 (09:17→21:23)
[2021-03-02] MEDS: Enoxaparin 80 MG/0.8 ML SYR SUBCUT SCH ×2 (09:20→21:24)
[2021-03-02] MEDS: Mometasone/Formoter 200/5 MDI INH SCH ×2 (09:22→21:27)
[2021-03-02] MEDS: Hemorrhoidal OINT 1 TUBE PR PRN (10:46)
[2021-03-03 07:47] LABS: Hematocrit 26 % (35-47); Hemoglobin 9.1 g/dL (12.0-16.0); Mean Corpuscular HGB Conc 35 g/dL (31-36); Mean Corpuscular Hemoglobin 30 pg (27-31); Mean Corpuscular Volume 87 fL (80-97); Red Blood Count 3.05 10^6 /uL (3.70-4.87); Red Cell Distribution Width 18 % (10-15); White Blood Count 25.7 10^3/uL (3.5-10.8)
[2021-03-03 07:58] LABS: Albumin/Globulin Ratio 1.8 (1-3); Calcium 8.8 mg/dL (8.6-10.3); EGFR African American 86.8 (>60); EGFR Non-African American 71.8 (>60); Globulin 2.2 g/dL (2-4); Potassium 4.1 mmol/L (3.5-5.0); Total Bilirubin 0.9 mg/dL (0.2-1.0); Total Protein 6.2 g/dL (6.4-8.9)
[2021-03-03] MEDS: PTO: Ruxolitinib (NF) 5 MG TABLET PO SCH ×2 (08:13→20:07)
[2021-03-03] MEDS: Mometasone/Formoter 200/5 MDI INH SCH ×2 (08:13→20:09)
[2021-03-03] MEDS: Enoxaparin 80 MG/0.8 ML SYR SUBCUT SCH ×2 (08:14→20:10)
[2021-03-03 08:27] LABS: RBC Morphology Normal (Normal)
[2021-03-03 08:33] LABS: ABS Basophils 0.2 10^3/ul (0-0.2); ABS Eosinophils 0.2 10^3/ul (0-0.6); ABS Lymphocytes 1.5 10^3/ul (1.0-4.8); ABS Monocytes 1.3 10^3/ul (0-0.8); ABS Neutrophils 22.5 10^3/ul (1.5-7.7); ABS Nucleated RBC 0.3 10^3/ul; Eosinophil % 0.8 %; Lymphocyte % 5.9 %; Mean Platelet Volume 9.1 fL (7.4-10.4); Nucleated Red Blood Cells % 1.2; Platelet Count 29 10^3/uL (150-450)
[2021-03-03] MEDS: Hemorrhoidal OINT 1 TUBE PR PRN (09:46)
[2021-03-04] MEDS: Mometasone/Formoter 200/5 MDI INH SCH ×2 (08:47→21:47)
[2021-03-04] MEDS: Enoxaparin 80 MG/0.8 ML SYR SUBCUT SCH ×2 (08:47→21:58)
[2021-03-04] MEDS: PTO: Ruxolitinib (NF) 5 MG TABLET PO SCH ×2 (08:48→21:59)
[2021-03-05 08:09] LABS: ABS Basophils 0.3 10^3/ul (0-0.2); ABS Eosinophils 0.1 10^3/ul (0-0.6); ABS Lymphocytes 1.4 10^3/ul (1.0-4.8); ABS Monocytes 1.1 10^3/ul (0-0.8); ABS Neutrophils 21.2 10^3/ul (1.5-7.7); ABS Nucleated RBC 0.4 10^3/ul; Eosinophil % 0.6 %; Hematocrit 27 % (35-47); Hemoglobin 9.5 g/dL (12.0-16.0); Lymphocyte % 5.9 %; Mean Corpuscular HGB Conc 35 g/dL (31-36); Mean Corpuscular Hemoglobin 31 pg (27-31); Mean Corpuscular Volume 87 fL (80-97); Mean Platelet Volume 9.8 fL (7.4-10.4); Nucleated Red Blood Cells % 1.8; Platelet Count 29 10^3/uL (150-450); Red Blood Count 3.08 10^6 /uL (3.70-4.87); Red Cell Distribution Width 18 % (10-15); White Blood Count 24.1 10^3/uL (3.5-10.8)
[2021-03-05 08:25] LABS: Albumin 4.2 g/dL (3.2-5.2); Albumin/Globulin Ratio 1.8 (1-3); Calcium 9.2 mg/dL (8.6-10.3); EGFR African American 77.5 (>60); Globulin 2.3 g/dL (2-4); Total Bilirubin 0.9 mg/dL (0.2-1.0); Total Protein 6.5 g/dL (6.4-8.9)
[2021-03-05 09:43] LABS: Anisocytosis 1+
[2021-03-05 09:44] LABS: Polychromasia 1+
[2021-03-05 09:49] LABS: Basophilic Stippling 1+
[2021-03-05] MEDS: Mometasone/Formoter 200/5 MDI INH SCH ×2 (10:16→20:51)
[2021-03-05] MEDS: Enoxaparin 60 MG/0.6 ML SYR SUBCUT SCH ×2 (10:16→20:49)
[2021-03-05] MEDS: PTO: Ruxolitinib (NF) 5 MG TABLET PO SCH ×2 (10:17→20:48)
[2021-03-05] MEDS ORDERED: NS 0.9% 500 ml BAG 500 ML IV SCH (11:00)
[2021-03-05 11:05] LABS: Hematocrit 27 % (35-47); Hemoglobin 9.5 g/dL (12.0-16.0); Mean Corpuscular HGB Conc 35 g/dL (31-36); Mean Corpuscular Hemoglobin 30 pg (27-31); Mean Corpuscular Volume 86 fL (80-97); Mean Platelet Volume 9.7 fL (7.4-10.4); Platelet Count 44 10^3/uL (150-450); Red Blood Count 3.13 10^6 /uL (3.70-4.87); Red Cell Distribution Width 18 % (10-15); White Blood Count 31.4 10^3/uL (3.5-10.8)
[2021-03-05 11:30] LABS: INR 1.27 (0.86-1.15)
[2021-03-05 11:36] LABS: Polychromasia 2+
[2021-03-05 11:41] LABS: ABS Basophils 0.3 10^3/ul (0-0.2); ABS Neutrophils 26.4 10^3/ul (1.5-7.7); Albumin 4.3 g/dL (3.2-5.2); Albumin/Globulin Ratio 1.7 (1-3); Calcium 9.3 mg/dL (8.6-10.3); EGFR African American 77.5 (>60); Globulin 2.5 g/dL (2-4); Potassium 4.1 mmol/L (3.5-5.0); Total Bilirubin 1.1 mg/dL (0.2-1.0); Total Protein 6.8 g/dL (6.4-8.9)
[2021-03-05 11:43] LABS: ABS Lymphocytes 3.4 10^3/ul (1.0-4.8)
[2021-03-05] MEDS: Hemorrhoidal OINT 1 TUBE PR PRN (21:00)
[2021-03-06 09:28] VITALS: BP 142/60
[2021-03-06] MEDS: PTO: Ruxolitinib (NF) 5 MG TABLET PO SCH (09:38)
[2021-03-06] MEDS: Enoxaparin 60 MG/0.6 ML SYR SUBCUT SCH (09:40)
[2021-03-06] MEDS: Mometasone/Formoter 200/5 MDI INH SCH (09:41)
== END 2021-03-06 14:05 | disposition home health service (06) | DRG 945 ==
LOC: PMRU 09:46
PROVIDERS: ADMIT Physical Medicine & Rehabilitation; ATTEND Physical Medicine & Rehabilitation